=== PATIENT | male | born 1950 | race Caucasian/White ===

== ENCOUNTER 2018-02-23 21:30 | Inpatient (IN) | payer MEDICARE ==
--- NOTE | 2018-02-23 21:57 | C.PDOC ---
History Of Present Illness 67 year old male presents to the ED c/o recurrent dizziness for the past 2 weeks. Patient states "when I get up I feel like everything is moving". Patient has multiple falls with associated vertigo like dizziness. Patient is currently asymptomatic. As per RN, patient drove himself to the ED and RN witness fall when patient was trying to come to the ED. Patient has past similar symptoms in 2015, patient DC from rehab. Patient denies LOC, headache, nausea, vomit, CP, SOB, abdominal pain. RECUR DIZZY X 2 WEEKS. PS "WHEN I GET UP AND MOVE I FEEL LIKE EVERYTHING IS MOVING". +MULT FALLS W ASSOC VERTIGO-LIKE DIZZINESS. CURRENTLY ASYMPT. PER RN, PT DROVE SELF TO ER AND WITNESSED TO FALL WHEN TRYING TO COME TO ER. NO LOC, NV, CP, ABD PAIN, FOCAL WEAKNESS, TAM. PS SIM SX 2014, DC TO REHAB. EXAM MILD DIST NONTOXIC HEENT ATRAUM NEURO NO CEREB DEF; NO FOCAL DEF. INDUCIBLE VERTIGO W MOVEMENT GAIT DEFERRED DUE TO SX EXT OLD BRUISE L KNEE AROM WO DIFF, NO SWELL REMAINDER NEG Time Seen by Provider: 02/23/18 21:50 Chief Complaint (Nursing): Dizziness/Lightheaded History Per: Patient History/Exam Limitations: no limitations Onset/Duration Of Symptoms: Days Current Symptoms Are (Timing): Still Present Activity At Onset Of Symptoms: Walking Associated Symptoms Preceding Syncopal Episode: Vertigo Seizure Or Post-ictal Symptoms: None Possible Causative Factor(s): Vertigo Fall Associated With With Symptoms: Yes Severity: None Recent travel outside of the [place]: No Additional History Per: Patient Past Medical History Reviewed: Historical Data, Nursing Documentation, Vital Signs Vital Signs: Last Vital Signs Temp 97.6 F 02/23/18 21:38 Pulse 101 H 02/23/18 21:38 Resp 20 02/23/18 21:38 BP 158/89 H 02/23/18 21:38 Pulse Ox 98 02/23/18 21:38 - Medical History PMH: COPD, HTN, Hypercholesterolemia, TIA Denies: Chronic Kidney Disease Surgical History: Cholecystectomy - [facility] INJECT/INFUSE NEC (07/31/04) Family History: States: Unknown Family Hx - Social History Hx Alcohol Use: No Hx Substance Use: No - Immunization History Hx Tetanus Toxoid Vaccination: No Hx Influenza Vaccination: No Review Of Systems Constitutional: Negative for: Fever, Chills Eyes: Negative for: Vision Change Cardiovascular: Negative for: Chest Pain Respiratory: Negative for: Shortness of Breath Gastrointestinal: Negative for: Nausea, Vomiting Skin: Negative for: Rash Neurological: Positive for: Dizziness. Negative for: Headache Physical Exam - Physical Exam Appears: Non-toxic, In Acute Distress Skin: Normal Color, Warm, Dry Head: Atraumatic, Normacephalic Eye(s): bilateral: Normal Inspection, PERRL Neck: Normal ROM, No Midline Cervical Tenderness, Supple Chest: Symmetrical Cardiovascular: Rhythm Regular Respiratory: Normal Breath Sounds, No Rales, No Rhonchi, No Wheezing Gastrointestinal/Abdominal: Soft, No Tenderness, No Guarding, No Rebound Extremity: Normal ROM, No Tenderness, Capillary Refill (< 2 seconds), No Swelling, Other (old bruise left knee) Neurological/Psych: Oriented x3, Normal Speech, Normal Cognition, Other (non focal, inducible vertigo with movement ) Gait: Other (deferred due to symptoms) ED Course And Treatment - Laboratory Results Result Diagrams: 02/23/18 22:14 02/23/18 22:14 ECG: Interpreted By Ct ECG Rhythm: Sinus Rhythm Rate From EC O2 Sat by Pulse Oximetry: 98 (ON RA) Pulse Ox Interpretation: Normal - CT Scan/US CT head Other Rad Studies (CT/US): Read By Radiologist, Radiology Report Reviewed CT/US Interpretation: noncontrast brain CT. Indications: Dizzy versus syncope. Technique: Multislice helical acquisition of the brain without intravenous contrast. Multiplanar reformatted images.the total DLP is 1104. Findings: There are age appropriate involutional changes. The ventricles are of normal size shape and configuration. There is no midline shift, vascular territorial edema, mass effect, subdural collections, or recent intracranial hemorrhage. Impression: Unremarkable study. . Electronically signed on Feb 23, 2018 10:40:30 PM EDT by: Davon Lucero M.D., Certified by [facility] Progress - Re-Evaluation Re-evaluation Note: 02/23/18 22:55 D/W DR RAMOS AWARE OF ER FINDINGS WILL ADMIT EXAM UNCH INITIAL VSS - Data Reviewed Data Reviewed: Lab, Diagnostic imaging, EKG, Old records Medical Decision Making Medical Decision Making: Plan: * VBG * CT head * EKG * Labs * CXR * IV fluids * urine culture * UA Disposition Counseled Patient/Family Regarding: Studies Performed, Diagnosis - Disposition Disposition: HOSPITALIZED Disposition Time: 22:55 Condition: SERIOUS Forms: [facility] (Bengali) - POA Present On Arrival: Falls Or Trauma - Clinical Impression Clinical Impression: Vertigo, Near syncope, Difficulty walking, Acute renal insufficiency - Scribe Statement The provider has reviewed the documentation as recorded by the Scribe Ganesh Polk All medical record entries made by the Scribe were at my direction and personally dictated by me. I have reviewed the chart and agree that the record accurately reflects my personal performance of the history, physical exam, medical decision making, and the department course for this patient. I have also personally directed, reviewed, and agree with the discharge instructions and disposition.
[2018-02-23 22:18] LABS: BASO % 0.4 % (0.0-2.0); EOS # 0.1 K/uL (0.0-0.7); EOS % 0.7 % (0.0-4.0); HEMOGLOBIN 11.9 g/dL (12.0-18.0); LYMPH # 2.2 K/uL (1.0-4.3); LYMPH % 26.8 % (20.0-40.0); MEAN CELL VOLUME 86.4 fL (80.0-94.0); MEAN CORPUSCULAR HEMOGLOBIN 29.9 pg (27.0-31.0); MEAN CORPUSCULAR HGB CONC 34.6 g/dL (33.0-37.0); MEAN PLATELET VOLUME 8.2 fL (7.2-11.7); MONO # 0.8 K/uL (0.0-0.8); MONO % 9.3 % (0.0-10.0); NEUT # 5.3 K/uL (1.8-7.0); NEUT % 62.8 % (50.0-75.0); NRBC % 0.1 % (0.0-2.0); RBC 3.99 Mil/uL (4.40-5.90); RED CELL DISTRIBUTION WIDTH 13.4 % (11.5-14.5); WHITE BLOOD COUNT 8.4 K/uL (4.8-10.8)
[2018-02-23 22:38] LABS: ALB/GLOB RATIO 1.4 (1.0-2.1); ALBUMIN 4.5 g/dL (3.5-5.0); ALT/SGPT 27 U/L (21-72); AST/SGOT 22 U/L (17-59); BLOOD UREA NITROGEN 55 mg/dL (9-20); CALCIUM 9.8 mg/dl (8.6-10.4); GFR NON-AFRICAN AMERICAN 24
[2018-02-23] MEDS ORDERED: Sodium Chloride 0.9% 1,000 ML IV ONE (22:42)
[2018-02-23] MEDS ORDERED: Sodium Chloride 0.45% 1,000 ML IV ONE (23:24)
[2018-02-23 23:32] LABS: VENOUS BLOOD GAS BASE EXCESS -1.4 mmol/L (0.0-2.0); VENOUS BLOOD GAS PCO2 28 mmHg (40-60); VENOUS BLOOD GAS PO2 38 mm/Hg (30-55); VENOUS BLOOD PH 7.48 (7.32-7.43)
[2018-02-24] MEDS: Sodium Chloride 0.45% 1,000 ML IV SCH ×2 (00:05→18:21)
[2018-02-24 01:39] VITALS: RESP 20
[2018-02-24 06:29] LABS: SQUAMOUS EPITHIAL 1 /hpf (0-5); URINE BACTERIA RARE (<OCC); URINE BILIRUBIN NEGATIVE (NEGATIVE); URINE CLARITY Clear (Clear); URINE COLOR Yellow (YELLOW); URINE GLUCOSE (UA) 2+ mg/dL (Normal); URINE LEUKOCYTE ESTERASE NEG Leu/uL (Negative); URINE PROTEIN NEGATIVE (NEGATIVE); URINE UROBILINOGEN NORMAL mg/dL (0.2-1.0)
--- NOTE | 2018-02-24 07:03 | CT ---
Date of service: 02/23/2018 PROCEDURE: CT HEAD WITHOUT CONTRAST. HISTORY: Syncope. COMPARISON: 03/23/2015 TECHNIQUE: Axial computed tomography images were obtained through the head/brain without intravenous contrast. Radiation dose: Total exam DLP = 1104 mGy-cm. This CT exam was performed using one or more of the following dose reduction techniques: Automated exposure control, adjustment of the mA and/or kV according to patient size, and/or use of iterative reconstruction technique. FINDINGS: HEMORRHAGE: No intracranial hemorrhage. BRAIN: No mass effect or edema. Scattered focal lucencies in the subcortical and periventricular white matter suggestive for chronic microvascular ischemic change. Bilateral basal ganglia calcifications. VENTRICLES: Unremarkable. No hydrocephalus. CALVARIUM: Unremarkable. PARANASAL SINUSES: Unremarkable as visualized. No significant inflammatory changes. MASTOID AIR CELLS: Unremarkable as visualized. No inflammatory changes. OTHER FINDINGS: Intracranial arterial calcifications. Some soft tissue swelling overlying the occipital cranium, nonspecific. Not significantly changed since the prior study. IMPRESSION: Chronic microvascular ischemic changes. If symptoms persists, consider correlation with MRI. These findings were preliminarily reported at 10:40 p.m. on 02/23/[address] Davon Lucero from [facility].
[2018-02-24 07:12] LABS: URINE BLOOD NEGATIVE (NEGATIVE)
--- NOTE | 2018-02-24 09:30 | RAD ---
Date of service: 02/23/2018 PROCEDURE: CHEST RADIOGRAPH, 1 VIEW HISTORY: Dizziness COMPARISON: 03/23/2015. FINDINGS: LUNGS: The lungs are well inflated and clear. PLEURA: No pneumothorax or pleural fluid seen. CARDIOVASCULAR: Normal. OSSEOUS STRUCTURES: No significant abnormalities. VISUALIZED UPPER ABDOMEN: Normal. OTHER FINDINGS: There is chronic elevation of the right hemidiaphragm IMPRESSION: No acute findings.
--- NOTE | 2018-02-24 11:54 | MRI ---
Date of service: 02/24/2018 PROCEDURE: MRI BRAIN WITHOUT CONTRAST HISTORY: syncopal episode COMPARISON: Noncontrast head CT from 02/23/2018 TECHNIQUE: Multiplanar, multisequence MR images of the brain were obtained without intravenous contrast enhancement. FINDINGS: HEMORRHAGE: None DWI: No evidence of an acute or early subacute infarction. BRAIN PARENCHYMA: There are mild chronic microangiopathic changes. There is no mass, mass effect or abnormal extra-axial fluid collection. There is no territorial infarction. The midline sagittal structures are normal. VENTRICLES: There is moderate age-related global parenchymal volume loss and proportionate enlargement of the ventricles and cortical sulci. CRANIUM: There is normal bone marrow signal pattern. ORBITS: Grossly unremarkable. PARANASAL SINUSES/MASTOIDS: There is mild mucosal thickening in the frontal sinuses, ethmoid air cells and right maxillary sinus, worse in the right maxillary sinus. There is a small right mastoid effusion. The left mastoid air cells are clear. VASCULAR SYSTEM: There are normal signal voids in the larger intracranial arteries. OTHER FINDINGS: None. IMPRESSION: No acute intracranial abnormality. Mild chronic microangiopathic changes and moderate age-related global parenchymal volume loss.
[2018-02-24] MEDS ORDERED: (Novolog) Insulin Aspart, Recombinant 100 u/ml 10 ml vial SC STA (12:32)
[2018-02-24] MEDS ORDERED: Dextrose 50% SYRINGE Inj (50 ml) IV PRN (16:20)
[2018-02-24] MEDS ORDERED: Glucagon Recombinant 1 mg Inj IM PRN (16:20)
[2018-02-24] MEDS: (Novolin R) Insulin Human Regular 100 units/ml vial SC SCH ×2 (17:19→22:05)
--- NOTE | 2018-02-24 17:56 | CP.PCM.HP ---
History of Present Illness - History of Present Illness History of Present Illness: pt keeps falling dizzy dificult ambulation Present on Admission - Present on Admission Any Indicators Present on Admission: Yes History of Uncontrolled Diabetes: Yes Review of Systems - Review of Systems Systems not reviewed;Unavailable: Acuity of Condition - Constitutional Constitutional: Frequent Falls, Malaise - EENT Eyes: Blurred Vision, Sees Flashes Ears: As Per HPI Nose/Mouth/Throat: As Per HPI - Cardiovascular Cardiovascular: Lightheadedness - Respiratory Respiratory: As Per HPI - Gastrointestinal Gastrointestinal: As Per HPI - Genitourinary Genitourinary: As Per HPI - Reproductive: Male Reproductive:Male: As Per HPI - Musculoskeletal Musculoskeletal: Abnormal Gait Additional comments: feels leds donot carry him - Integumentary Integumentary: As Per HPI - Neurological Neurological: Disequilibrium, Frequent Falls, Loss of Vision, Syncope, Vertigo - Psychiatric Psychiatric: As Per HPI - Endocrine Additional Comments: has dm Past Patient History - Infectious Disease Hx of Infectious Diseases: None - Tetanus Immunizations Tetanus Immunization: Unknown - Past Medical History & Family History Past Medical History?: Yes - Past Social History Smoking Status: Former Smoker - CARDIAC Hx Cardiac Disorders: Yes Hx Hypercholesterolemia: Yes Hx Hypertension: Yes - PULMONARY Hx Chronic Obstructive Pulmonary Disease (COPD): Yes - NEUROLOGICAL Hx Neurological Disorder: Yes Hx Transient Ischemic Attacks (TIA): Yes - HEENT Hx HEENT Problems: No - RENAL Hx Chronic Kidney Disease: No - ENDOCRINE/METABOLIC Hx Diabetes Mellitus Type 1: Yes - HEMATOLOGICAL/ONCOLOGICAL Hx Blood Disorders: No - INTEGUMENTARY Hx Dermatological Problems: No - MUSCULOSKELETAL/RHEUMATOLOGICAL Hx Musculoskeletal Disorders: No Hx Falls: Yes - GASTROINTESTINAL Hx Gastrointestinal Disorders: No - GENITOURINARY/GYNECOLOGICAL Hx Genitourinary Disorders: No - PSYCHIATRIC Hx Psychophysiologic Disorder: No Hx Substance Use: No - SURGICAL HISTORY Hx Surgeries: Yes Hx Cholecystectomy: Yes - ANESTHESIA Hx Anesthesia: Yes Hx Anesthesia Reactions: No Hx Malignant Hyperthermia: No Has any member of the family had a problem w/ anesthesia?: No Meds Allergies/Adverse Reactions: Allergies Allergy/AdvReac Type Severity Reaction Status Date / Time No Known Allergies Allergy Verified 03/17/17 12:03 Physical Exam - Constitutional Appears: Non-toxic, In Acute Distress - Head Exam Head Exam: ATRAUMATIC - Eye Exam Eye Exam: Normal appearance Pupil Exam: NORMAL ACCOMODATION - ENT Exam ENT Exam: Mucous Membranes Moist - Neck Exam Neck exam: Positive for: Normal Inspection - Respiratory Exam Respiratory Exam: Clear to Auscultation Bilateral - Cardiovascular Exam Cardiovascular Exam: REGULAR RHYTHM - GI/Abdominal Exam GI & Abdominal Exam: Normal Bowel Sounds - Exam Exam: NORMAL INSPECTION - Extremities Exam Extremities exam: Positive for: normal inspection - Back Exam Back exam: NORMAL INSPECTION - Neurological Exam Neurological exam: Oriented x3 - Psychiatric Exam Psychiatric exam: Normal Mood Results - Vital Signs Recent Vital Signs: Last Vital Signs Temp 98.2 F 02/24/18 15:00 Pulse 80 02/24/18 16:21 Resp 20 02/24/18 15:00 BP 123/74 02/24/18 15:00 Pulse Ox 98 02/24/18 15:00 - Labs Result Diagrams: 02/23/18 22:14 02/23/18 22:14 Labs: Laboratory Results - last 24 hr 02/23/18 02/23/18 02/23/18 22:14 22:14 23:20 WBC 8.4 RBC 3.99 L Hgb 11.9 L Hct 34.5 L MCV 86.4 MCH 29.9 MCHC 34.6 RDW 13.4 Plt Count 331 MPV 8.2 Neut % (Auto) 62.8 Lymph % (Auto) 26.8 Sharp % (Auto) 9.3 Eos % (Auto) 0.7 Baso % (Auto) 0.4 Neut # (Auto) 5.3 Lymph # (Auto) 2.2 Sharp # (Auto) 0.8 Eos # (Auto) 0.1 Baso # (Auto) 0.0 pO2 38 VBG pH 7.48 H VBG pCO2 28 L VBG HCO3 23.3 VBG Total CO2 21.8 L VBG O2 Sat (Calc) 73.8 H VBG Base Excess -1.4 L VBG Potassium 3.7 Glucose 224 H Lactate 2.0 Sodium 136 134.0 Potassium 4.0 Chloride 97 L 99.0 Carbon Dioxide 20 L Anion Gap 23 H BUN 55 H Creatinine 2.7 H Est GFR ( Amer) 28 Est GFR (Non-Af Amer) 24 POC Glucose (mg/dL) Random Glucose 217 H Calcium 9.8 Total Bilirubin 0.6 AST 22 ALT 27 Alkaline Phosphatase 101 Troponin I < 0.0120 Total Protein 7.8 Albumin 4.5 Globulin 3.3 Albumin/Globulin Ratio 1.4 Venous Blood Potassium 3.7 Urine Color Urine Clarity Urine pH Ur Specific [place] Urine Protein Urine Glucose (UA) Urine Ketones Urine Blood Urine Nitrate Urine Bilirubin Urine Urobilinogen Ur Leukocyte Esterase Urine WBC (Auto) Urine RBC (Auto) Ur Squamous Epith Cells Urine Bacteria 02/24/18 02/24/18 02/24/18 06:06 06:14 11:07 WBC RBC Hgb Hct MCV MCH MCHC RDW Plt Count MPV Neut % (Auto) Lymph % (Auto) Sharp % (Auto) Eos % (Auto) Baso % (Auto) Neut # (Auto) Lymph # (Auto) Sharp # (Auto) Eos # (Auto) Baso # (Auto) pO2 VBG pH VBG pCO2 VBG HCO3 VBG Total CO2 VBG O2 Sat (Calc) VBG Base Excess VBG Potassium Glucose Lactate Sodium Potassium Chloride Carbon Dioxide Anion Gap BUN Creatinine Est GFR ( Amer) Est GFR (Non-Af Amer) POC Glucose (mg/dL) 172 H 285 H Random Glucose Calcium Total Bilirubin AST ALT Alkaline Phosphatase Troponin I Total Protein Albumin Globulin Albumin/Globulin Ratio Venous Blood Potassium Urine Color Yellow Urine Clarity Clear Urine pH 5.0 Ur Specific [place] 1.013 Urine Protein Negative Urine Glucose (UA) 2+ H Urine Ketones Negative Urine Blood Negative Urine Nitrate Negative Urine Bilirubin Negative Urine Urobilinogen Normal Ur Leukocyte Esterase Neg Urine WBC (Auto) 4 Urine RBC (Auto) 1 Ur Squamous Epith Cells 1 Urine Bacteria Rare 02/24/18 02/24/18 11:20 16:25 WBC RBC Hgb Hct MCV MCH MCHC RDW Plt Count MPV Neut % (Auto) Lymph % (Auto) Sharp % (Auto) Eos % (Auto) Baso % (Auto) Neut # (Auto) Lymph # (Auto) Sharp # (Auto) Eos # (Auto) Baso # (Auto) pO2 VBG pH VBG pCO2 VBG HCO3 VBG Total CO2 VBG O2 Sat (Calc) VBG Base Excess VBG Potassium Glucose Lactate Sodium Potassium Chloride Carbon Dioxide Anion Gap BUN Creatinine Est GFR ( Amer) Est GFR (Non-Af Amer) POC Glucose (mg/dL) 302 H 246 H Random Glucose Calcium Total Bilirubin AST ALT Alkaline Phosphatase Troponin I Total Protein Albumin Globulin Albumin/Globulin Ratio Venous Blood Potassium Urine Color Urine Clarity Urine pH Ur Specific [place] Urine Protein Urine Glucose (UA) Urine Ketones Urine Blood Urine Nitrate Urine Bilirubin Urine Urobilinogen Ur Leukocyte Esterase Urine WBC (Auto) Urine RBC (Auto) Ur Squamous Epith Cells Urine Bacteria Assessment & Plan - Assessment and Plan (Free Text) Assessment: recuret falls diequlibrium dm poor vision neare syncope progressive renal failiur Plan: as per orders - Date & Time Date: 02/24/18 Time: 18:01
[2018-02-25 07:44] LABS: CALCIUM 8.9 mg/dl (8.6-10.4)
[2018-02-25] MEDS: (Novolin R) Insulin Human Regular 100 units/ml vial SC SCH ×4 (08:11→22:09)
[2018-02-25] MEDS: Sodium Chloride 0.45% 1,000 ML IV SCH (09:10)
--- NOTE | 2018-02-25 11:32 | CP.PCM.PN ---
Subjective - Date & Time of Evaluation Date of Evaluation: 02/25/18 Time of Evaluation: 11:30 - Subjective Subjective: recurent falls dizziness Objective - Vital Signs/Intake and Output Vital Signs (last 24 hours): Temp Pulse Resp BP Pulse Ox 97.6 F 83 20 117/71 95 02/25/18 07:15 02/25/18 07:15 02/25/18 07:15 02/25/18 07:15 02/25/18 07:15 Intake and Output: 02/25/18 02/25/18 06:59 18:59 Intake Total 1280 Balance 1280 - Medications Medications: Current Medications Acetaminophen (Tylenol 325mg Tab) 650 mg PO Q6 PRN PRN Reason: Pain, moderate (4-7) Aspirin (Aspirin Chewable) 81 mg PO DAILY [facility] Last Admin: 02/25/18 09:05 Dose: 81 mg Dextrose (Dextrose 50% Inj) 0 ml IV STAT PRN; Protocol PRN Reason: Hypoglycemia Protocol Dextrose (Glutose 15) 0 gm PO ONCE PRN; Protocol PRN Reason: Hypoglycemia Protocol Glipizide (Glucotrol) 10 mg PO ACBD [facility] Last Admin: 02/25/18 08:08 Dose: 10 mg Glucagon (Glucagen Diagnostic Kit) 0 mg IM STAT PRN; Protocol PRN Reason: Hypoglycemia Protocol Heparin Sodium (Porcine) (Heparin) 5,000 units SC Q12 [facility] Last Admin: 02/25/18 09:05 Dose: 5,000 units Sodium Chloride (Sodium Chloride 0.45%) 1,000 mls @ 60 mls/hr IV .[id number] [facility] Last Admin: 02/25/18 09:10 Dose: Not Given Dextrose (Dextrose 5% In Water 1000 Ml) 1,000 mls @ 0 mls/hr IV .Q0M PRN; Protocol PRN Reason: Hypoglycemia Protocol Influenza Virus Vaccine (Fluzone Quad [id number]) 60 mcg IM .ONCE ONE Stop: 02/25/18 14:01 Insulin Human Regular (Novolin R) 0 unit SC ACHS [facility]; Protocol Last Admin: 02/25/18 11:23 Dose: 4 units Lisinopril (Zestril) 10 mg PO DAILY [facility] Last Admin: 02/25/18 09:05 Dose: 10 mg Pneumococcal Polyvalent Vaccine (Pneumovax 23 Vaccine) 0.5 ml IM .ONCE ONE Stop: 02/25/18 14:01 Tamsulosin HCl (Flomax) 0.4 mg PO DAILY [facility] Last Admin: 02/25/18 09:05 Dose: 0.4 mg - Labs Labs: 02/23/18 22:14 02/25/18 07:00 - Constitutional Appears: Non-toxic - Head Exam Head Exam: NORMAL INSPECTION - Eye Exam Eye Exam: Normal appearance Pupil Exam: NORMAL ACCOMODATION - ENT Exam ENT Exam: Mucous Membranes Moist - Neck Exam Neck Exam: Full ROM - Respiratory Exam Respiratory Exam: NORMAL BREATHING PATTERN - Cardiovascular Exam Cardiovascular Exam: REGULAR RHYTHM - GI/Abdominal Exam GI & Abdominal Exam: Normal Bowel Sounds - Exam Exam: NORMAL INSPECTION - Extremities Exam Extremities Exam: Normal Inspection - Back Exam Back Exam: NORMAL INSPECTION - Neurological Exam Neurological Exam: Abnormal Gait, Oriented x3 - Psychiatric Exam Psychiatric exam: Normal Mood - Skin Skin Exam: Normal Color Assessment and Plan - Assessment and Plan (Free Text) Assessment: recurent falls dizziness Plan: cont as per orders
[2018-02-25] MEDS ORDERED: Pneumococcal 23-Valent Vaccine IM ONE (14:00)
[2018-02-25] MEDS ORDERED: Influenza Vaccine 60 MCG/0.5 ML SYR (3 yr & up) IM ONE (14:00)
[2018-02-25 14:30] LABS: BASO % 0.4 % (0.0-2.0); EOS # 0.1 K/uL (0.0-0.7); EOS % 0.9 % (0.0-4.0); HEMOGLOBIN 11.7 g/dL (12.0-18.0); LYMPH # 1.6 K/uL (1.0-4.3); LYMPH % 22.9 % (20.0-40.0); MEAN CELL VOLUME 87.1 fL (80.0-94.0); MEAN CORPUSCULAR HEMOGLOBIN 30.5 pg (27.0-31.0); MEAN PLATELET VOLUME 8.3 fL (7.2-11.7); MONO # 0.7 K/uL (0.0-0.8); MONO % 9.5 % (0.0-10.0); NEUT # 4.6 K/uL (1.8-7.0); NEUT % 66.3 % (50.0-75.0); RBC 3.82 Mil/uL (4.40-5.90); RED CELL DISTRIBUTION WIDTH 13.2 % (11.5-14.5); WHITE BLOOD COUNT 6.9 K/uL (4.8-10.8)
--- NOTE | 2018-02-25 14:46 | CARD ---
APPROVED REPORT Date of service: 02/23/2018 EKG Measurement Heart [id number] <Conclusion> Normal sinus rhythm Normal ECG
--- NOTE | 2018-02-25 14:51 | CP.PCM.CON ---
History of Present Illness - History of Present Illness History of Present Illness: Nephrology Consultation Note: Assessment: Stable Acute Kidney Injury (N17.9) likely due to pre-renal state, hemodynamic/low BP. r/o obstruction ? 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 Hypertension control with meds as ordered. Maintain hemodynamics stable. Avoid hypotension. Patient not on ACEI/ARB due to recent JACQUELINE. hold lisinopril Monitor Input/Output, daily weights and renal function with basic metabolic panel change IVF to NS @ 100 ml/hr check orthostatics echo and chest CT results pending Check urine spot protein/creatinine, albumin/creatinine ratio, Na/cr ratio for FeNa, Check uric acid, renal and bladder sonogram Check HIV/Hep B and Hep C serology Anemia work up with TSAT/Ferritin/Vitamin B12/folate, serum protein electrophoresis with immunofixation, serum free light chain assay ([place]/Lambda) Check for 25-OH vitamin D, iPTH, phosphorus level. Dose meds/antibiotics for reduced GFR. Avoid fleets enema/magnesium based laxati ves. Avoid nephrotoxins/NSAIDs/ iodinated contrast (unless needed emergently) Glycemic control Further work up/management as per primary team Thanks for allowing me to participate in care of your patient. Will follow patient with you. Please call if any Qs. had d/w team Dr Flex Miranda Office: [phone] Chief Complaint; dizziness fall Reason for consult: Acute Kidney Injury HPI: Pt is a 67 M with hx of diabetes Mellitus ( years), hypertension (years) ov erweight, BPH presented with complaints of episodes of dizziness and cvertigo with fall which are more progressive. pt reports hx of for it for last 3 months. more often now. Denies OTC/herbal meds. takes occasional NSAIDs No recent iodinated contrast exposure. Noted obvious episodes of low BP. denies urine complaints. not aware about kidney disease in past reports frequent BM but soft as well ROS: Cardiovascular: No chest pain. Pulmonary: No shortness of breath Gastrointestinal: denies abdominal pain No nausea. No vomiting. Genitourinary: No pain while urinating. Denies blood in urine. All other negative except as mentioned in HPI except dizziness/vertigo Physical Examination: General Appearance: Comfortable, in no acute respiratory distress, co-operative . overweight Vitals reviewed and noted as below Head; Atraumatic, normocephalic ENT: no ulcers no thrush. Tongue is midline. Oropharynx: no rash or ulcers. EYES: Pupils are equal, round and reactive to light accommodation. Eye muscles and extraocular movement intact. Sclera is anicteric. Neck; supple no lymphadenopathy, no thyromegaly or bruit Lungs: Normal respiratory rate/effort. Breath sounds bilateral equal and clear Heart: Normal rate. s1s2 normal. No rub or gallop. Extremities: no edema. No varicose veins Neurological: Patient is alert, awake and oriented to person, place and time. No focal deficit. Strength bilateral appropriate and equal Skin: Warm and dry. Normal turgor. No rash. Palpitation: Normal elasticity for age Abdomen: Abdomen is soft. Bowel sounds +. There is no abdominal tenderness, no guarding/rigidity no organomegaly Psych: limited insight and normal affect/mood MSK: no joint tenderness or swelling. Digits and nails normal, no deformity : kidney or bladder not palpable Labs/imaging reviewed. Past medical history, past surgical history, family history, social history, allergy reviewed and noted as below Family hx: no hx of CKD. Rest non-contributory UA no blood or protein Past Patient History - Infectious Disease Hx of Infectious Diseases: None - Tetanus Immunizations Tetanus Immunization: Unknown - Past Medical History & Family History Past Medical History?: Yes - Past Social History Smoking Status: Former Smoker - CARDIAC Hx Cardiac Disorders: Yes Hx Hypercholesterolemia: Yes Hx Hypertension: Yes - PULMONARY Hx Chronic Obstructive Pulmonary Disease (COPD): Yes - NEUROLOGICAL Hx Neurological Disorder: Yes Hx Transient Ischemic Attacks (TIA): Yes - HEENT Hx HEENT Problems: No - RENAL Hx Chronic Kidney Disease: No - ENDOCRINE/METABOLIC Hx Diabetes Mellitus Type 1: Yes - HEMATOLOGICAL/ONCOLOGICAL Hx Blood Disorders: No - INTEGUMENTARY Hx Dermatological Problems: No - MUSCULOSKELETAL/RHEUMATOLOGICAL Hx Musculoskeletal Disorders: No Hx Falls: Yes - GASTROINTESTINAL Hx Gastrointestinal Disorders: No - GENITOURINARY/GYNECOLOGICAL Hx Genitourinary Disorders: No - PSYCHIATRIC Hx Psychophysiologic Disorder: No Hx Substance Use: No - SURGICAL HISTORY Hx Surgeries: Yes Hx Cholecystectomy: Yes - ANESTHESIA Hx Anesthesia: Yes Hx Anesthesia Reactions: No Hx Malignant Hyperthermia: No Has any member of the family had a problem w/ anesthesia?: No Meds Allergies/Adverse Reactions: Allergies Allergy/AdvReac Type Severity Reaction Status Date / Time No Known Allergies Allergy Verified 03/17/17 12:03 - Medications Medications: Current Medications Acetaminophen (Tylenol 325mg Tab) 650 mg PO Q6 PRN PRN Reason: Pain, moderate (4-7) Aspirin (Aspirin Chewable) 81 mg PO DAILY [facility] Last Admin: 02/25/18 09:05 Dose: 81 mg Dextrose (Dextrose 50% Inj) 0 ml IV STAT PRN; Protocol PRN Reason: Hypoglycemia Protocol Dextrose (Glutose 15) 0 gm PO ONCE PRN; Protocol PRN Reason: Hypoglycemia Protocol Glipizide (Glucotrol) 10 mg PO ACBD [facility] Last Admin: 02/25/18 08:08 Dose: 10 mg Glucagon (Glucagen Diagnostic Kit) 0 mg IM STAT PRN; Protocol PRN Reason: Hypoglycemia Protocol Heparin Sodium (Porcine) (Heparin) 5,000 units SC Q12 [facility] Last Admin: 02/25/18 09:05 Dose: 5,000 units Dextrose (Dextrose 5% In Water 1000 Ml) 1,000 mls @ 0 mls/hr IV .Q0M PRN; Protocol PRN Reason: Hypoglycemia Protocol Sodium Chloride (Sodium Chloride 0.9%) 1,000 mls @ 100 mls/hr IV .Q10H [facility] Insulin Human Regular (Novolin R) 0 unit SC ACHS DERRICK; Protocol Last Admin: 02/25/18 11:23 Dose: 4 units Tamsulosin HCl (Flomax) 0.4 mg PO DAILY [facility] Last Admin: 02/25/18 09:05 Dose: 0.4 mg Results - Vital Signs Recent Vital Signs: Last Vital Signs Temp 97.6 F 02/25/18 07:15 Pulse 83 02/25/18 07:45 Resp 20 02/25/18 07:15 BP 117/71 02/25/18 07:15 Pulse Ox 95 02/25/18 07:15 - Labs Result Diagrams: 02/25/18 14:20 02/25/18 07:00 Labs: Laboratory Results - last 24 hr 02/24/18 02/24/18 02/25/18 16:25 20:46 06:10 WBC RBC Hgb Hct MCV MCH MCHC RDW Plt Count MPV Neut % (Auto) Lymph % (Auto) [place] % (Auto) Eos % (Auto) Baso % (Auto) Neut # (Auto) Lymph # (Auto) [place] # (Auto) Eos # (Auto) Baso # (Auto) Sodium Potassium Chloride Carbon Dioxide Anion Gap BUN Creatinine Est GFR ( Amer) Est GFR (Non-Af Amer) POC Glucose (mg/dL) 246 H 205 H 314 H Random Glucose Hemoglobin A1c Calcium Triglycerides Cholesterol LDL Cholesterol Direct HDL Cholesterol 02/25/18 02/25/18 02/25/18 07:00 07:00 11:01 WBC RBC Hgb Hct MCV MCH MCHC RDW Plt Count MPV Neut % (Auto) Lymph % (Auto) [place] % (Auto) Eos % (Auto) Baso % (Auto) Neut # (Auto) Lymph # (Auto) [place] # (Auto) Eos # (Auto) Baso # (Auto) Sodium 134 Potassium 3.6 Chloride 98 Carbon Dioxide 22 Anion Gap 18 BUN 53 H Creatinine 2.6 H Est GFR ( Amer) 30 Est GFR (Non-Af Amer) 25 POC Glucose (mg/dL) 293 H Random Glucose 295 H Hemoglobin A1c 9.3 H Calcium 8.9 Triglycerides 386 H D Cholesterol 162 LDL Cholesterol Direct 55 HDL Cholesterol 40 02/25/18 14:20 WBC 6.9 RBC 3.82 L Hgb 11.7 L Hct 33.3 L MCV 87.1 MCH 30.5 MCHC 35.0 RDW 13.2 Plt Count 301 MPV 8.3 Neut % (Auto) 66.3 Lymph % (Auto) 22.9 [place] % (Auto) 9.5 Eos % (Auto) 0.9 Baso % (Auto) 0.4 Neut # (Auto) 4.6 Lymph # (Auto) 1.6 [place] # (Auto) 0.7 Eos # (Auto) 0.1 Baso # (Auto) 0.0 Sodium Potassium Chloride Carbon Dioxide Anion Gap BUN Creatinine Est GFR ( Amer) Est GFR (Non-Af Amer) POC Glucose (mg/dL) Random Glucose Hemoglobin A1c Calcium Triglycerides Cholesterol LDL Cholesterol Direct HDL Cholesterol
[2018-02-25 14:52] LABS: IRON 43 ug/dL (49-181)
[2018-02-25 15:16] LABS: % IRON SATURATION 16 (20-55); TOTAL IRON BINDING CAPACITY 268 ug/dL (250-450)
[2018-02-25 15:26] LABS: HEPATITIS B SURFACE AG Negative (NEGATIVE)
[2018-02-25 15:31] LABS: HEPATITIS B CORE AB NEGATIVE (NEGATIVE)
[2018-02-25 15:36] LABS: HIV 1&2 ANTIBODY NEGATIVE (NEGATIVE)
[2018-02-25 15:43] LABS: HEPATITIS C ANTIBODY NEGATIVE (NEGATIVE)
[2018-02-25 16:00] LABS: FOLATE 8.5 ng/mL
[2018-02-25] MEDS: Sodium Chloride 0.9% 1,000 ML IV SCH (16:01)
--- NOTE | 2018-02-25 17:25 | CT ---
Date of service: 02/25/2018 PROCEDURE: CT Chest without contrast HISTORY: Aortic root dilatation COMPARISON: 03/24/2015 CT thorax and abdomen TECHNIQUE: Contiguous axial images were obtained through the chest without intravenous contrast enhancement. Sagittal and coronal reconstructions were performed. Radiation dose (DLP): 814.87 mGy-cm. This CT exam was performed using one or more of the following dose reduction techniques: Automated exposure control, adjustment of the mA and/or kV according to patient size, and/or use of iterative reconstruction technique. FINDINGS: LUNGS: Stable 4 x 6 mm pulmonary nodule periphery of the lingula. No new pulmonary nodules, masses or infiltrates. MEDIASTINUM: Ascending aorta 4.1 x 4.3 cm. Maximum diameter of descending aorta 3.4 x 3.5 cm. Aortic calcifications identified, unchanged compared to the prior study. With respect to the thoracic and upper abdominal aorta, no significant interval change compared to the prior study. Pulmonary vascular congestion. No cardiac abnormalities nor is there evidence of pericardial effusion.. All main pulmonary artery unremarkable. No vascular congestion. No lymphadenopathy. PLEURA: No pleural fluid. No pneumothorax. BONES: No fracture. No destructive lesion. UPPER ABDOMEN: Grossly unremarkable. OTHER FINDINGS: None. IMPRESSION: No significant or acute findings to account for/ related to the clinical presentation. No significant interval change compared to the prior examination(s).
[2018-02-25] MEDS: Ferrous Sulfate 300 mg/5 mL Liq UD PO SCH (18:00)
--- NOTE | 2018-02-25 18:30 | CARD ---
APPROVED REPORT Date of service: 02/25/2018 EXAM: Two-dimensional and M-mode echocardiogram with Doppler and color Doppler. Other Information Quality : GoodRhythm : INDICATION Syncope RISK FACTORS Hypertension Hyperlipidemia Diabetes 2D DIMENSIONS IVSd1.5 (0.7-1.1cm)LVDd2.8 (3.9-5.9cm) LVOT Diameter2.2 (1.8-2.4cm)PWd1.2 (0.7-1.1cm) LA [id number] (18-58mL)LVDs1.8 (2.5-4.0cm) FS (%) 35.9 %LVEF (%)67.2 (>50%) LVEF (Phillip's)70.31 % M-Mode DIMENSIONS Left Atrium (MM)3.82 (2.5-4.0cm)IVSd1.20 (0.7-1.1cm) Aortic Root3.49 (2.2-3.7cm)LVDd3.76 (4.0-5.6cm) Aortic Cusp Exc.1.62 (1.5-2.0cm)PWd1.13 (0.7-1.1cm) FS (%) 37 %LVDs2.36 (2.0-3.8cm) LVEF (%)68 (>50%) Mitral Valve MV E Wmloalkk40.3cm/sMV A Olefkxvs383.2cm/sE/A ratio0.7 TDI Lateral E' Peak V6.16cm/sMedial E' Peak V5.19cm/sE/Lateral E'14.0 E/Medial E'16.6 Tricuspid Valve TR Peak [id number]/sTR Peak Gr.[id number] LEFT VENTRICLE The left ventricle is normal size. There is mild concentric left ventricular hypertrophy. Left ventricle systolic function is normal. The Ejection Fraction is 65-70%. There is normal LV segmental wall motion. Transmitral Doppler flow pattern is Grade I-abnormal relaxation pattern. There is no ventricular septal defect visualized. RIGHT VENTRICLE The right ventricle is normal size. The right ventricular systolic function is normal. ATRIA The left atrium is moderately dilated. The right atrium size is normal. AORTIC VALVE The aortic valve is mildly to moderately sclerotic. The aortic valve is tri-cuspid. No aortic regurgitation is present. There is no aortic valvular stenosis. MITRAL VALVE The mitral valve is normal in structure. There is no evidence of mitral valve prolapse. There is no mitral valve regurgitation noted. TRICUSPID VALVE The tricuspid valve is normal in structure. There is trace tricuspid regurgitation. Right ventricular systolic pressure is estimated at 30-40 mmHg. There is mild pulmonary hypertension. PULMONIC VALVE The pulmonic valve is not well visualized. There is trace pulmonic valvular regurgitation. GREAT VESSELS The aortic root is normal in size. The ascending aorta is Mildly dilated. 3.9 cm The IVC is normal in size and collapses >50% with inspiration. PERICARDIAL EFFUSION There is no pericardial effusion. <Conclusion> There is mild concentric left ventricular hypertrophy. Left ventricle systolic function is normal. The Ejection Fraction is 65-70%. Transmitral Doppler flow pattern is Grade I-abnormal relaxation pattern. There is mild pulmonary hypertension.
--- NOTE | 2018-02-25 18:59 | CP.PCM.CON ---
History of Present Illness - History of Present Illness History of Present Illness: - Clinical Impression Clinical Impression: Vertigo, Near syncope, Difficulty walking, Acute renal insufficiency HPI: Pt is a 67 M with hx of diabetes Mellitus ( years), hypertension (years) overweight, BPH presented with complaints of episodes of dizziness and vertigo with fall which are more progressive. pt reports hx of for it for last 3 months. more often now. Patient states "when I get up I feel like everything is moving". Patient has multiple falls with associated vertigo like dizziness. Patient is currently asymptomatic. As per RN, patient drove himself to the ED and RN witness fall when patient was trying to come to the ED. Patient has past similar symptoms in 2015, patient DC from rehab. Patient denies LOC, headache, nausea, vomit, CP, SOB, abdominal pain. RECUR DIZZY X 2 WEEKS. PS "WHEN I GET UP AND MOVE I FEEL LIKE EVERYTHING IS MOVING". +MULT FALLS W ASSOC VERTIGO-LIKE DIZZINESS. CURRENTLY ASYMPT. PER RN, PT DROVE SELF TO ER AND WITNESSED TO FALL WHEN TRYING TO COME TO ER. NO LOC, NV, CP, ABD PAIN, FOCAL WEAKNESS, TAM. PS SIM SX 2014, DC TO REHAB. - Medical History PMH: COPD, HTN, Hypercholesterolemia, TIA Denies: Chronic Kidney Disease Surgical History: Cholecystectomy Denies OTC/herbal meds. takes occasional NSAIDs No recent iodinated contrast exposure. Noted obvious episodes of low BP. denies urine complaints. not aware about kidney disease in past reports frequent BM but soft as well Past Patient History - Infectious Disease Hx of Infectious Diseases: None - Tetanus Immunizations Tetanus Immunization: Unknown - Past Medical History & Family History Past Medical History?: Yes - Past Social History Smoking Status: Former Smoker - CARDIAC Hx Cardiac Disorders: Yes Hx Hypercholesterolemia: Yes Hx Hypertension: Yes - PULMONARY Hx Chronic Obstructive Pulmonary Disease (COPD): Yes - NEUROLOGICAL Hx Neurological Disorder: Yes Hx Transient Ischemic Attacks (TIA): Yes - HEENT Hx HEENT Problems: No - RENAL Hx Chronic Kidney Disease: No - ENDOCRINE/METABOLIC Hx Diabetes Mellitus Type 1: Yes - HEMATOLOGICAL/ONCOLOGICAL Hx Blood Disorders: No - INTEGUMENTARY Hx Dermatological Problems: No - MUSCULOSKELETAL/RHEUMATOLOGICAL Hx Musculoskeletal Disorders: No Hx Falls: Yes - GASTROINTESTINAL Hx Gastrointestinal Disorders: No - GENITOURINARY/GYNECOLOGICAL Hx Genitourinary Disorders: No - PSYCHIATRIC Hx Psychophysiologic Disorder: No Hx Substance Use: No - SURGICAL HISTORY Hx Surgeries: Yes Hx Cholecystectomy: Yes - ANESTHESIA Hx Anesthesia: Yes Hx Anesthesia Reactions: No Hx Malignant Hyperthermia: No Has any member of the family had a problem w/ anesthesia?: No Meds Allergies/Adverse Reactions: Allergies Allergy/AdvReac Type Severity Reaction Status Date / Time No Known Allergies Allergy Verified 03/17/17 12:03 - Medications Medications: Current Medications Acetaminophen (Tylenol 325mg Tab) 650 mg PO Q6 PRN PRN Reason: Pain, moderate (4-7) Aspirin (Aspirin Chewable) 81 mg PO DAILY [facility] Last Admin: 02/25/18 09:05 Dose: 81 mg Dextrose (Dextrose 50% Inj) 0 ml IV STAT PRN; Protocol PRN Reason: Hypoglycemia Protocol Dextrose (Glutose 15) 0 gm PO ONCE PRN; Protocol PRN Reason: Hypoglycemia Protocol Glipizide (Glucotrol) 10 mg PO ACBD [facility] Last Admin: 02/25/18 08:08 Dose: 10 mg Glucagon (Glucagen Diagnostic Kit) 0 mg IM STAT PRN; Protocol PRN Reason: Hypoglycemia Protocol Heparin Sodium (Porcine) (Heparin) 5,000 units SC Q12 [facility] Last Admin: 02/25/18 09:05 Dose: 5,000 units Dextrose (Dextrose 5% In Water 1000 Ml) 1,000 mls @ 0 mls/hr IV .Q0M PRN; Protocol PRN Reason: Hypoglycemia Protocol Sodium Chloride (Sodium Chloride 0.9%) 1,000 mls @ 100 mls/hr IV .Q10H [facility] Insulin Human Regular (Novolin R) 0 unit SC ACHS [facility]; Protocol Last Admin: 02/25/18 11:23 Dose: 4 units Tamsulosin HCl (Flomax) 0.4 mg PO DAILY [facility] Last Admin: 02/25/18 09:05 Dose: 0.4 mg ROS: Cardiovascular: No chest pain. Pulmonary: No shortness of breath Gastrointestinal: denies abdominal pain No nausea. No vomiting. Genitourinary: No pain while urinating. Denies blood in urine. All other negative except as mentioned in HPI except dizziness/vertigo Acute Kidney Injury (N17.9) likely due to pre-renal state, hemodynamic/low BP. r/o obstruction ? Underlying CKD with Diabetic chronic Kidney Disease (E11.22) and H ypertensive Chronic Kidney Disease (I12.9) Anemia (D64.9) overweight, BPH dizziness/vertigo with fall No acute need for renal replacement therapy at this time. Hypertension control with meds as ordered. Maintain hemodynamics stable. Avoid hypotension. Patient not on ACEI/ARB due to recent JACQUELINE. hold lisinopril Monitor Input/Output, daily weights and renal function with basic metabolic panel Dose meds/antibiotics for reduced GFR. Avoid fleets enema/magnesium based lax atives. Avoid nephrotoxins/NSAIDs/ iodinated contrast (unless needed emergently) Glycemic control Results - Vital Signs Recent Vital Signs: Last Vital Signs Temp 97.6 F 02/25/18 07:15 Pulse 83 02/25/18 07:45 Resp 20 02/25/18 07:15 BP 117/71 02/25/18 07:15 Pulse Ox 95 02/25/18 07:15 - CT Scan/US CT head Other Rad Studies (CT/US): Read By Radiologist, Radiology Report Reviewed CT/US Interpretation: noncontrast brain CT. Indications: Dizzy versus syncope. Technique: Multislice helical acquisition of the brain without intravenous contrast. Multiplanar reformatted images.the total DLP is 1104. Findings: There are age appropriate involutional changes. The ventricles are of normal size shape and configuration. There is no midline shift, vascular territorial edema, mass effect, subdural collections, or recent intracranial hemorrhage. Impression: Unremarkable study. . - Clinical Impression Clinical Impression: Vertigo, Near syncope, Difficulty walking, Acute renal insufficiency recurrent falls, disequilibrium, Diabetes Mellitus, poor vision near syncope progressive renal failure Past Patient History - Infectious Disease Hx of Infectious Diseases: None - Tetanus Immunizations Tetanus Immunization: Unknown - Past Medical History & Family History Past Medical History?: Yes - Past Social History Smoking Status: Former Smoker - CARDIAC Hx Cardiac Disorders: Yes Hx Hypercholesterolemia: Yes Hx Hypertension: Yes - PULMONARY Hx Chronic Obstructive Pulmonary Disease (COPD): Yes - NEUROLOGICAL Hx Neurological Disorder: Yes Hx Transient Ischemic Attacks (TIA): Yes - HEENT Hx HEENT Problems: No - RENAL Hx Chronic Kidney Disease: No - ENDOCRINE/METABOLIC Hx Diabetes Mellitus Type 1: Yes - HEMATOLOGICAL/ONCOLOGICAL Hx Blood Disorders: No - INTEGUMENTARY Hx Dermatological Problems: No - MUSCULOSKELETAL/RHEUMATOLOGICAL Hx Musculoskeletal Disorders: No Hx Falls: Yes - GASTROINTESTINAL Hx Gastrointestinal Disorders: No - GENITOURINARY/GYNECOLOGICAL Hx Genitourinary Disorders: No - PSYCHIATRIC Hx Psychophysiologic Disorder: No Hx Substance Use: No - SURGICAL HISTORY Hx Surgeries: Yes Hx Cholecystectomy: Yes - ANESTHESIA Hx Anesthesia: Yes Hx Anesthesia Reactions: No Hx Malignant Hyperthermia: No Has any member of the family had a problem w/ anesthesia?: No Meds Allergies/Adverse Reactions: Allergies Allergy/AdvReac Type Severity Reaction Status Date / Time No Known Allergies Allergy Verified 03/17/17 12:03 - Medications Medications: Current Medications Acetaminophen (Tylenol 325mg Tab) 650 mg PO Q6 PRN PRN Reason: Pain, moderate (4-7) Aspirin (Aspirin Chewable) 81 mg PO DAILY [facility] Last Admin: 02/25/18 09:05 Dose: 81 mg Dextrose (Dextrose 50% Inj) 0 ml IV STAT PRN; Protocol PRN Reason: Hypoglycemia Protocol Dextrose (Glutose 15) 0 gm PO ONCE PRN; Protocol PRN Reason: Hypoglycemia Protocol Ferrous Sulfate (Feosol Liq) 300 mg PO DAILY [facility] Last Admin: 02/25/18 18:00 Dose: 300 mg Glipizide (Glucotrol) 10 mg PO ACBD [facility] Last Admin: 02/25/18 18:00 Dose: 10 mg Glucagon (Glucagen Diagnostic Kit) 0 mg IM STAT PRN; Protocol PRN Reason: Hypoglycemia Protocol Heparin Sodium (Porcine) (Heparin) 5,000 units SC Q12 [facility] Last Admin: 02/25/18 09:05 Dose: 5,000 units Dextrose (Dextrose 5% In Water 1000 Ml) 1,000 mls @ 0 mls/hr IV .Q0M PRN; Protocol PRN Reason: Hypoglycemia Protocol Sodium Chloride (Sodium Chloride 0.9%) 1,000 mls @ 100 mls/hr IV .Q10H [facility] Last Admin: 02/25/18 16:01 Dose: 100 mls/hr Insulin Human Regular (Novolin R) 0 unit SC ACHS [facility]; Protocol Last Admin: 02/25/18 17:35 Dose: Not Given Tamsulosin HCl (Flomax) 0.4 mg PO DAILY [facility] Last Admin: 02/25/18 09:05 Dose: 0.4 mg Physical Exam - Neurological Exam Additional comments: 67 years old male has h/o frequent fallings, syncopal spells, dizzy spells, sense of vertigo, pre renal failure as diagnosed by Nephrology, DM since the age of 44 Years, HTN, high lipid profile mainly high Triglycerides, low vitamin B12. He has high Blood sugar, and is receiving IV Fluids to correct his pre renal failure. Negative MRI Brain, negative CT Brain, negative CXR, negative CT chest without contrast. His spells of syncope, dizziness, vertigo and general weakness have stopped since admitted. His Renal function is monitored. P/E: Mental status: Awake, alert, oriented X 3, fluent coherent speech, normal memory X 3, appropriate behavior, normal mathematic ability. Cranial Nerves II to XII: No deficits Motor: normal tone, power and muscle bulk DTR 0/4 Toes are down going by Plantar stimulation. Sensory: reduced sensation peripherally in a glove and stoke pattern, in both UEs and LEs. Diabetic peripheral neuropathy looks a major cause of it. Cerebellar: Normal FNT, HST Tandem walking not tested. Stature and Gait: Not tested. Results - Vital Signs Recent Vital Signs: Last Vital Signs Temp 98.3 F 02/25/18 15:25 Pulse 87 02/25/18 16:00 Resp 20 02/25/18 15:25 BP 106/69 02/25/18 15:25 Pulse Ox 97 02/25/18 15:25 - Labs Result Diagrams: 02/25/18 14:20 02/25/18 07:00 Labs: Laboratory Results - last 24 hr 02/24/18 02/25/18 02/25/18 20:46 06:10 07:00 WBC RBC Hgb Hct MCV MCH MCHC RDW Plt Count MPV Neut % (Auto) Lymph % (Auto) [place] % (Auto) Eos % (Auto) Baso % (Auto) Neut # (Auto) Lymph # (Auto) [place] # (Auto) Eos # (Auto) Baso # (Auto) D-Dimer, Quantitative Sodium 134 Potassium 3.6 Chloride 98 Carbon Dioxide 22 Anion Gap 18 BUN 53 H Creatinine 2.6 H Est GFR ( Amer) 30 Est GFR (Non-Af Amer) 25 POC Glucose (mg/dL) 205 H 314 H Random Glucose 295 H Hemoglobin A1c Calcium 8.9 Iron TIBC % Saturation Ferritin Troponin I Triglycerides 386 H D Cholesterol 162 LDL Cholesterol Direct 55 HDL Cholesterol 40 Vitamin B12 Folate Hep Bs Antigen Hep Bs Antibody Hep B Core IgM Ab Hepatitis C Antibody HIV 1&2 Antibody Screen 02/25/18 02/25/18 02/25/18 07:00 11:01 14:20 WBC RBC Hgb Hct MCV MCH MCHC RDW Plt Count MPV Neut % (Auto) Lymph % (Auto) [place] % (Auto) Eos % (Auto) Baso % (Auto) Neut # (Auto) Lymph # (Auto) [place] # (Auto) Eos # (Auto) Baso # (Auto) D-Dimer, Quantitative Sodium Potassium Chloride Carbon Dioxide Anion Gap BUN Creatinine Est GFR ( Amer) Est GFR (Non-Af Amer) POC Glucose (mg/dL) 293 H Random Glucose Hemoglobin A1c 9.3 H Calcium Iron 43 L TIBC 268 % Saturation 16 L Ferritin Troponin I Triglycerides Cholesterol LDL Cholesterol Direct HDL Cholesterol Vitamin B12 Folate Hep Bs Antigen Hep Bs Antibody Hep B Core IgM Ab Hepatitis C Antibody HIV 1&2 Antibody Screen Negative 02/25/18 02/25/18 02/25/18 14:20 14:20 14:20 WBC 6.9 RBC 3.82 L Hgb 11.7 L Hct 33.3 L MCV 87.1 MCH 30.5 MCHC 35.0 RDW 13.2 Plt Count 301 MPV 8.3 Neut % (Auto) 66.3 Lymph % (Auto) 22.9 [place] % (Auto) 9.5 Eos % (Auto) 0.9 Baso % (Auto) 0.4 Neut # (Auto) 4.6 Lymph # (Auto) 1.6 [place] # (Auto) 0.7 Eos # (Auto) 0.1 Baso # (Auto) 0.0 D-Dimer, Quantitative Sodium Potassium Chloride Carbon Dioxide Anion Gap BUN Creatinine Est GFR ( Amer) Est GFR (Non-Af Amer) POC Glucose (mg/dL) Random Glucose Hemoglobin A1c Calcium Iron TIBC % Saturation Ferritin 634.0 Troponin I Triglycerides Cholesterol LDL Cholesterol Direct HDL Cholesterol Vitamin B12 234 L Folate 8.5 Hep Bs Antigen Negative Hep Bs Antibody Positive Hep B Core IgM Ab Negative Hepatitis C Antibody Negative HIV 1&2 Antibody Screen 02/25/18 02/25/18 14:26 14:26 WBC RBC Hgb Hct MCV MCH MCHC RDW Plt Count MPV Neut % (Auto) Lymph % (Auto) [place] % (Auto) Eos % (Auto) Baso % (Auto) Neut # (Auto) Lymph # (Auto) [place] # (Auto) Eos # (Auto) Baso # (Auto) D-Dimer, Quantitative 233 Sodium Potassium Chloride Carbon Dioxide Anion Gap BUN Creatinine Est GFR ( Amer) Est GFR (Non-Af Amer) POC Glucose (mg/dL) Random Glucose Hemoglobin A1c Calcium Iron TIBC % Saturation Ferritin Troponin I < 0.0120 Triglycerides Cholesterol LDL Cholesterol Direct HDL Cholesterol Vitamin B12 Folate Hep Bs Antigen Hep Bs Antibody Hep B Core IgM Ab Hepatitis C Antibody HIV 1&2 Antibody Screen Assessment & Plan (1) Acute renal insufficiency Status: Acute (2) Difficulty walking Status: Acute (3) Near syncope Status: Acute (4) Vertigo Status: Acute (5) Diabetes mellitus, insulin dependent (IDDM), uncontrolled Status: Chronic (6) Obesity (BMI 30.0-34.9) Status: Acute (7) Recurrent falls Assessment and Plan: R/O seizures. Status: Acute (8) Syncope Status: Acute (9) Seizures Assessment and Plan: Seizures must be ruled out due to Syncopal spells and near [place] spells. Will get an EEG. Status: Acute (10) CVA (cerebral vascular accident) Assessment and Plan: Negative MRI Brain has ruled it out. Status: Acute (11) Cerebral vascular insufficiency Assessment and Plan: Get MRA Brain To R/O Cerebral vascular insufficiency Status: Acute
[2018-02-25 22:26] LABS: CREATININE, RANDOM URINE 77.2 mg/dL
--- NOTE | 2018-02-26 00:25 | CON ---
DATE: 02/25/2018 REASON FOR CONSULTATION: Recurrent near syncope and recurrent falls. HISTORY OF PRESENT ILLNESS: The patient is a 67-year-old [place] male, who has a history of hypertension and diabetes mellitus, and is unaware of any prior cardiac history. He presented because of recurrent dizziness and falls. The patient describes his first episode, while he was waiting for the bus he noticed that his legs are weak, feeling dizzy, collapsed to the floor on his knees and sustained knee abrasions from hitting the side walk. The patient was assisted by someone, who took him in his car and dropped him to his house. The patient states that after he arrived the house and almost undressed to go for shower, he kept collapsing because of dizziness and leg weakness and a friend brought him to the emergency room. The patient also stated that at the entrance of the emergency room, he had another fall episode accompanied with dizziness. The patient described that he may have lost consciousness very briefly, but regained his consciousness immediately after he fell to the ground. The patient does not recall experiencing palpitation and denies any chest pain or shortness of breath. MEDICATIONS: The patient's home medications include Motrin, Atarax, Lexapro, glipizide, Flomax, fenofibrate, gabapentin, losartan, hydrochlorothiazide, and omeprazole. Current hospital medications are aspirin 81 mg once a day, Flomax 0.4 mg once a day, glipizide 10 mg twice a day, and heparin 5000 units subcutaneously every 12 hours, PAST MEDICAL HISTORY: The patient is unaware of any history of stroke or heart attack. SOCIAL HISTORY: The patient is ; however, his is in [place] and currently is staying all by himself. REVIEW OF SYSTEMS: No fever or chills, no nausea or vomiting. PHYSICAL EXAMINATION GENERAL: The patient is an elderly male, who does not appear to be in acute distress. VITAL SIGNS: Blood pressure 117/71, heart rate 83, temperature 97.6, respirations 20. HEENT: Normocephalic. CHEST: Clear. HEART: S1 and S2, regular. ABDOMEN: Soft. EXTREMITIES: No edema, no calf tenderness, minor knee bruising. LABORATORY DATA: SMA-7: Sodium 134, potassium 3.6, chloride 98, CO2 of 22, glucose 195, BUN 63. creatinine 2.6. Triglycerides are elevated at 386, rest of the lipid profile is within normal limits. One set of troponin is negative. Hemoglobin and hematocrit are 11.9 and 34.5. White count and platelet count are within normal limits. Head CT scan without contrast, chronic microvascular ischemic changes. Brain MRI without contrast, no acute intracranial findings, mild chronic microangiopathic changes, and moderate age related global parenchymal volume loss. Carotid Doppler was performed, the report is still pending. Chest x-ray was unremarkable. EKG revealed normal sinus rhythm at the rate of 98. Preliminary echo report revealed normal ejection fraction and mild pulmonary hypertension. The aortic root appeared mildly dilated and the aortic valve is significantly sclerotic. ASSESSMENT: 1. Recurrent near syncopal episodes. 2. Hypertension. 3. Diabetes mellitus. 4. Chronic renal insufficiency. 5. Hypertriglyceridemia. RECOMMENDATIONS: Continue current aspirin 81 mg once a day, subcutaneous heparin 5000 units every 12 hours, mg twice a day. Obtain chest CT angio without IV contrast to evaluate the aortic root size. Obtain venous Doppler of lower extremities as well as serum D-dimer. Repeat 12-lead EKG and one more set of troponin and continue telemetry monitoring. Bharat Caro MD
[2018-02-26] MEDS: Sodium Chloride 0.9% 1,000 ML IV SCH ×2 (02:01→12:38)
[2018-02-26 08:15] LABS: URIC ACID 7.7 mg/dL (3.5-8.5)
[2018-02-26 08:25] LABS: CALCIUM 8.9 mg/dl (8.6-10.4)
[2018-02-26] MEDS: (Novolin R) Insulin Human Regular 100 units/ml vial SC SCH ×4 (08:25→22:06)
[2018-02-26] MEDS: Ferrous Sulfate 300 mg/5 mL Liq UD PO SCH (09:18)
--- NOTE | 2018-02-26 12:26 | US ---
Date of service: 2018-02-25 22:35:41 PROCEDURE: Ultrasound of the Kidneys/urinary bladder HISTORY: JACQUELINE COMPARISON: None available. TECHNIQUE: Sonogram of the kidneys/urinary bladder. FINDINGS: RIGHT KIDNEY: Measures: 12.9 x 6.5 x 6.9 cm. No obstructing calculus or hydronephrosis. LEFT KIDNEY: Measures: 13.2 x 6.4 x 6.3 cm. No obstructing calculus or hydronephrosis. OTHER FINDINGS: Prevoid urinary bladder measures approximately 11.1 x 6.5 x 1.0 cm, calculated volume 377.3 mL. Postvoid urinary bladder measures 11.7 x 6.2 x 8.6 cm, calculated volume 325.3 mL. Bilateral ureteral jets are not identified. The prostate gland measures approximately 4.1 x 4.2 x 4.0 cm. IMPRESSION: No obstructing calculus or hydronephrosis identified. Prevoid urinary bladder volume 377.3 mL. Postvoid urinary bladder volume 325.3 mL. Bilateral ureteral jets were not identified. Enlarged prostate gland. Recommend correlation with PSA. Preliminary impression was provided by [employer]
[2018-02-26] MEDS: Insulin Detemir 100 units/ml Vial (Levemir) SC SCH (12:32)
[2018-02-26 14:56] LABS: RAPID PLASMA REAGIN NONREACTIVE (NONREACTIVE)
--- NOTE | 2018-02-26 15:24 | CP.PCM.PN ---
Subjective - Date & Time of Evaluation Date of Evaluation: 02/26/18 Time of Evaluation: 15:24 - Subjective Subjective: Nephrology Consultation Note: Assessment: Stable Acute Kidney Injury (N17.9) likely due to pre-renal state, hemodynamic/low BP. r /o obstruction ? 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 cr better Hypertension control with meds as ordered.continue to hold lisinopril lytes ok Monitor Input/Output continue IVF NS @ 100 ml/hr bladder USG shows elevated prostate and bladder urine retention, recommend urology evaluation Physical Examination: General Appearance: Comfortable, in no acute respiratory distress, co-operative . overweight Vitals reviewed and noted as below Head; Atraumatic, normocephalic ENT: no ulcers no thrush. Tongue is midline. Oropharynx: no rash or ulcers. EYES: Eye muscles and extraocular movement intact. Sclera is anicteric. Neck; supple no thyromegaly or bruit Lungs: Normal respiratory rate/effort. Breath sounds bilateral equal and clear Heart: Normal rate. s1s2 normal. No rub or gallop. Extremities: no edema. No varicose veins Neurological: Patient is alert, awake and oriented to person, place and time. No focal deficit. Strength bilateral appropriate and equal Skin: Warm and dry. Normal turgor. No rash. Abdomen: Abdomen is soft. Bowel sounds +. There is no abdominal tenderness, no guarding/rigidity no organomegaly Psych: limited insight and normal affect/mood . Objective - Vital Signs/Intake and Output Vital Signs (last 24 hours): Temp Pulse Resp BP Pulse Ox 98.0 F 79 20 111/52 L 97 02/26/18 07:15 02/26/18 07:15 02/26/18 07:15 02/26/18 07:15 02/26/18 07:15 Intake and Output: 02/26/18 02/26/18 06:59 18:59 Intake Total 1920 Balance 1920 - Medications Medications: Current Medications Acetaminophen (Tylenol 325mg Tab) 650 mg PO Q6 PRN PRN Reason: Pain, moderate (4-7) Aspirin (Aspirin Chewable) 81 mg PO DAILY [facility] Last Admin: 02/26/18 09:18 Dose: 81 mg Dextrose (Dextrose 50% Inj) 0 ml IV STAT PRN; Protocol PRN Reason: Hypoglycemia Protocol Dextrose (Glutose 15) 0 gm PO ONCE PRN; Protocol PRN Reason: Hypoglycemia Protocol Ferrous Sulfate (Feosol Liq) 300 mg PO DAILY [facility] Last Admin: 02/26/18 09:18 Dose: 300 mg Glipizide (Glucotrol) 10 mg PO ACBD [facility] Last Admin: 02/26/18 08:25 Dose: 10 mg Glucagon (Glucagen Diagnostic Kit) 0 mg IM STAT PRN; Protocol PRN Reason: Hypoglycemia Protocol Heparin Sodium (Porcine) (Heparin) 5,000 units SC Q12 [facility] Last Admin: 02/26/18 09:21 Dose: 5,000 units Dextrose (Dextrose 5% In Water 1000 Ml) 1,000 mls @ 0 mls/hr IV .Q0M PRN; Protocol PRN Reason: Hypoglycemia Protocol Sodium Chloride (Sodium Chloride 0.9%) 1,000 mls @ 100 mls/hr IV .Q10H [facility] Last Admin: 02/26/18 12:38 Dose: 100 mls/hr Insulin Detemir (Levemir) 5 unit SC ACB [facility] Last Admin: 02/26/18 12:32 Dose: 5 u Insulin Human Regular (Novolin R) 0 unit SC ACHS [facility]; Protocol Last Admin: 02/26/18 12:32 Dose: 3 units Tamsulosin HCl (Flomax) 0.4 mg PO DAILY [facility] Last Admin: 02/26/18 09:18 Dose: 0.4 mg - Labs Labs: 02/25/18 14:20 02/26/18 06:19
--- NOTE | 2018-02-26 21:36 | PN ---
DATE: 02/26/2018 FOLLOWUP SUBJECTIVE: The patient denies dizziness while in bed and had no falls while on telemetry monitoring. No reported arrhythmia. PHYSICAL EXAMINATION: VITAL SIGNS: Blood pressure 111/52, heart rate 79, temperature 98, respirations 20. HEENT: Normocephalic. CHEST: Clear. HEART: S1 and S2 are regular. EXTREMITIES: No edema. LABORATORY DATA: Today's SMA-7: Sodium 137, potassium 3.8, chloride 102, CO2 of 22, glucose 244, BUN 43, creatinine 1.9. Two sets of troponins are negative. Rheumatoid factor is negative. MIAH panel is pending. Chest CT scan reported no acute findings. The ascending aorta measures 4.1 x 4.3 cm which is mild dilatation. Brain MRI: No acute findings. Mild chronic microangiopathic changes and moderate age-related global parenchymal volume loss. Bladder ultrasound: No obstructive calculus or hydronephrosis. Enlarged prostate. Recommend correlation with PSA. Official echocardiography study revealed ejection fraction in range of 65% to 70% with mild concentric LVH and mild pulmonary hypertension. ASSESSMENT: 1. Recurrent dizziness and recurrent falls. 2. Hypertension and diabetes mellitus. 3. Rule out vertebrobasilar insufficiency. 4. Chronic insufficiency. 5. Hypertriglyceridemia. RECOMMENDATIONS: Continue aspirin 81 mg once a day, Flomax 0.4 mg once a day, glipizide 10 mg twice a day, Levemir 5 units subcutaneously daily. Consider neck and head MRA. I did review the repeat EKG which is not significantly different from the admitting one, and arrhythmia does not seem to be the reason for the patient's current symptoms at least as far as monitoring shows since admission. Bharat Caro MD
--- NOTE | 2018-02-26 23:26 | CP.PCM.PN ---
Subjective - Date & Time of Evaluation Date of Evaluation: 02/26/18 Time of Evaluation: 22:10 - Subjective Subjective: Doing better, no syncopal spells since admitted. He has normal cardiac enzymes, high glucose levels, low Vitamin B12 and Vitamin D levels. A replacement is given for Vitamin D and Calcium Carbonate, Vitamin B 12. Mild pre renal failure that is improving by IV Fluid correction. BUN 4 and Creatinine 1.9. He has CBC Diff showing mild anemia, low Iron receiving Iron replacement. He is awake alert and oriented He is concerned about his frequently high Glucose. Objective - Vital Signs/Intake and Output Vital Signs (last 24 hours): Temp Pulse Resp BP Pulse Ox 97.8 F 86 20 126/74 96 02/26/18 16:00 02/26/18 16:00 02/26/18 16:00 02/26/18 16:00 02/26/18 16:00 Intake and Output: 02/26/18 02/27/18 18:59 06:59 Intake Total 1080 1120 Balance 1080 1120 - Medications Medications: Current Medications Acetaminophen (Tylenol 325mg Tab) 650 mg PO Q6 PRN PRN Reason: Pain, moderate (4-7) Aspirin (Aspirin Chewable) 81 mg PO DAILY [facility] Last Admin: 02/26/18 09:18 Dose: 81 mg Calcium Carbonate (Oscal) 500 mg PO DAILY [facility] Cyanocobalamin (Vitamin B12 1000 Mcg/Ml Inj) 1,000 mcg IM QAM [facility] Stop: 03/03/18 10:00 Dextrose (Dextrose 50% Inj) 0 ml IV STAT PRN; Protocol PRN Reason: Hypoglycemia Protocol Dextrose (Glutose 15) 0 gm PO ONCE PRN; Protocol PRN Reason: Hypoglycemia Protocol Ergocalciferol (Drisdol 50,000 Intl Units Cap) 1 cap PO Q7D [facility] Ferrous Sulfate (Feosol Liq) 300 mg PO DAILY [facility] Last Admin: 02/26/18 09:18 Dose: 300 mg Folic Acid (Folic Acid) 1 mg PO DAILY [facility] Glipizide (Glucotrol) 10 mg PO ACBD [facility] Last Admin: 02/26/18 18:09 Dose: 10 mg Glucagon (Glucagen Diagnostic Kit) 0 mg IM STAT PRN; Protocol PRN Reason: Hypoglycemia Protocol Heparin Sodium (Porcine) (Heparin) 5,000 units SC Q12 [facility] Last Admin: 02/26/18 22:06 Dose: 5,000 units Dextrose (Dextrose 5% In Water 1000 Ml) 1,000 mls @ 0 mls/hr IV .Q0M PRN; Protocol PRN Reason: Hypoglycemia Protocol Sodium Chloride (Sodium Chloride 0.9%) 1,000 mls @ 100 mls/hr IV .Q10H [facility] Last Admin: 02/26/18 12:38 Dose: 100 mls/hr Insulin Detemir (Levemir) 5 unit SC ACB [facility] Last Admin: 02/26/18 12:32 Dose: 5 u Insulin Human Regular (Novolin R) 0 unit SC ACHS [facility]; Protocol Last Admin: 02/26/18 22:06 Dose: Not Given Tamsulosin HCl (Flomax) 0.4 mg PO DAILY [facility] Last Admin: 02/26/18 09:18 Dose: 0.4 mg - Labs Labs: 02/25/18 14:20 02/26/18 06:19 Assessment and Plan (1) Acute renal insufficiency Status: Acute (2) Difficulty walking Status: Acute (3) Near syncope Status: Acute (4) Vertigo Status: Acute (5) Diabetes mellitus, insulin dependent (IDDM), uncontrolled Status: Chronic (6) Obesity (BMI 30.0-34.9) Status: Acute (7) Recurrent falls Status: Acute (8) Syncope Assessment & Plan: EEG is pending Status: Acute (9) Seizures Assessment & Plan: EEG is pending. Status: Acute (10) CVA (cerebral vascular accident) Assessment & Plan: Negative MRI Brain Status: Acute (11) Cerebral vascular insufficiency Assessment & Plan: MRA Brain needs to be performed as in Patient or Out Patient. Status: Acute
[2018-02-27] MEDS: Sodium Chloride 0.9% 1,000 ML IV SCH ×3 (02:00→11:42)
[2018-02-27] MEDS: Insulin Detemir 100 units/ml Vial (Levemir) SC SCH (07:58)
[2018-02-27] MEDS: (Novolin R) Insulin Human Regular 100 units/ml vial SC SCH ×4 (07:59→21:36)
[2018-02-27] MEDS: Ferrous Sulfate 300 mg/5 mL Liq UD PO SCH (09:35)
[2018-02-27] MEDS ORDERED: Ergocalciferol 50,000 Intl Units Cap PO SCH (10:00)
--- NOTE | 2018-02-27 17:46 | CP.PCM.PN ---
Subjective - Date & Time of Evaluation Date of Evaluation: 02/27/18 Time of Evaluation: 17:42 - Subjective Subjective: Doing the same, no syncopal spells, more stable, able to walk to the bathroom. Glucose is high 200's and 300's. Mild High Blood pressure reading twice today. He will have EEG in AM. He has Proteinuria and a urinary protein electrophoresis test is obtained and the results are pending. Urinary bladder Ultrasonography: No obstructing calculus or hydronephrosis identified. Prevoid urinary bladder volume 377.3 mL. Postvoid urinary bladder volume 325.3 mL. Bilateral ureteral jets were not identified. Enlarged prostate gland. Recommend correlation with PSA. Preliminary impression was provided by [facility]. Carotid Dopplers: Bilateral mild stenosis. Objective - Vital Signs/Intake and Output Vital Signs (last 24 hours): Temp Pulse Resp BP Pulse Ox 97.8 F 85 20 156/88 H 97 02/27/18 15:54 02/27/18 16:09 02/27/18 15:54 02/27/18 15:54 02/27/18 15:54 Intake and Output: 02/27/18 02/27/18 06:59 18:59 Intake Total 1920 1080 Balance 1920 1080 - Medications Medications: Current Medications Acetaminophen (Tylenol 325mg Tab) 650 mg PO Q6 PRN PRN Reason: Pain, moderate (4-7) Aspirin (Aspirin Chewable) 81 mg PO DAILY [facility] Last Admin: 02/27/18 09:35 Dose: 81 mg Calcium Carbonate (Oscal) 500 mg PO DAILY [facility] Last Admin: 02/27/18 09:35 Dose: 500 mg Cyanocobalamin (Vitamin B12 1000 Mcg/Ml Inj) 1,000 mcg IM QAM [facility] Stop: 03/03/18 10:00 Last Admin: 02/27/18 09:43 Dose: 1,000 mcg Dextrose (Dextrose 50% Inj) 0 ml IV STAT PRN; Protocol PRN Reason: Hypoglycemia Protocol Dextrose (Glutose 15) 0 gm PO ONCE PRN; Protocol PRN Reason: Hypoglycemia Protocol Ergocalciferol (Drisdol 50,000 Intl Units Cap) 1 cap PO Q7D [facility] Last Admin: 02/27/18 09:35 Dose: 1 cap Ferrous Sulfate (Feosol Liq) 300 mg PO DAILY [facility] Last Admin: 02/27/18 09:35 Dose: 300 mg Folic Acid (Folic Acid) 1 mg PO DAILY [facility] Last Admin: 02/27/18 09:35 Dose: 1 mg Glipizide (Glucotrol) 10 mg PO ACBD [facility] Last Admin: 02/27/18 17:33 Dose: 10 mg Glucagon (Glucagen Diagnostic Kit) 0 mg IM STAT PRN; Protocol PRN Reason: Hypoglycemia Protocol Heparin Sodium (Porcine) (Heparin) 5,000 units SC Q12 [facility] Last Admin: 02/27/18 09:40 Dose: 5,000 units Sodium Chloride (Sodium Chloride 0.9%) 1,000 mls @ 100 mls/hr IV .Q10H [facility] Last Admin: 02/27/18 11:42 Dose: 100 mls/hr Insulin Detemir (Levemir) 5 unit SC ACB [facility] Last Admin: 02/27/18 07:58 Dose: 5 u Insulin Human Regular (Novolin R) 0 unit SC ACHS [facility]; Protocol Last Admin: 02/27/18 17:33 Dose: 3 units Tamsulosin HCl (Flomax) 0.4 mg PO DAILY [facility] Last Admin: 02/27/18 09:35 Dose: 0.4 mg - Labs Labs: 02/25/18 14:20 02/26/18 06:19 Assessment and Plan (1) Acute renal insufficiency Status: Acute (2) Difficulty walking Status: Acute (3) Near syncope Status: Acute (4) Vertigo Status: Acute (5) Diabetes mellitus, insulin dependent (IDDM), uncontrolled Status: Chronic (6) Obesity (BMI 30.0-34.9) Status: Acute (7) Recurrent falls Status: Acute (8) Syncope Status: Acute (9) Seizures Status: Acute (10) CVA (cerebral vascular accident) Status: Acute (11) Cerebral vascular insufficiency Status: Acute
--- NOTE | 2018-02-28 00:33 | PN ---
DATE: 02/27/2018 SUBJECTIVE: The patient does report dizziness. Today, there were no reported atrial or ventricular arrhythmia. PHYSICAL EXAMINATION: VITAL SIGNS: Blood pressure /82, heart rate 82, temperature 98.2, respirations 20. HEENT: Normocephalic. CHEST: Clear. HEART: S1 and S2, regular. EXTREMITIES: No edema. LABORATORY DATA: Today's blood sugars are 259, 212, and 329. ASSESSMENT: 1. Recurrent dizziness and falls. 2. Hypertension. 3. Improved renal insufficiency. 4. Diabetes mellitus. RECOMMENDATIONS: I did review neurology followup and recommendation for brain MRA to be performed as an outpatient. Continue aspirin 81 mg once a day, Feosol 300 mg daily, glipizide 10 mg twice a day, vitamin B12 1 mg IM daily. I was trying the case at this point. Bharat Caro MD
[2018-02-28] MEDS: Sodium Chloride 0.9% 1,000 ML IV SCH ×2 (02:26→02:27)
[2018-02-28] MEDS: (Novolin R) Insulin Human Regular 100 units/ml vial SC SCH ×4 (08:11→21:30)
[2018-02-28] MEDS: Insulin Detemir 100 units/ml Vial (Levemir) SC SCH (08:12)
--- NOTE | 2018-02-28 09:45 | CP.PCM.CON ---
History of Present Illness - History of Present Illness History of Present Illness: We are called to evaluate for syncope: Per history: "RECUR DIZZY X 2 WEEKS. PS "WHEN I GET UP AND MOVE I FEEL LIKE EVERYTHING IS MOVING". +MULT FALLS W ASSOC VERTIGO-LIKE DIZZINESS. CURRENTLY ASYMPT. PER RN, PT DROVE SELF TO ER AND WITNESSED TO FALL WHEN TRYING TO COME TO ER. NO LOC, NV, CP, ABD PAIN, FOCAL WEAKNESS, TAM. PS SIM SX 2014, PMHX: HTN chronic stable ; DM chronic labile ; No MO ? TIA in past; CKD/JACQUELINE Currently NO CP or SOB, c/o vertiginous sx's. No TAM, N/V, c/o generalized weakness and neuropathy feet. No Ulcers or cyanosis. Review of Systems - Review of Systems All systems: reviewed and no additional remarkable complaints except Past Patient History - Infectious Disease Hx of Infectious Diseases: None - Tetanus Immunizations Tetanus Immunization: Unknown - Past Medical History & Family History Past Medical History?: Yes - Past Social History Smoking Status: Former Smoker - CARDIAC Hx Cardiac Disorders: Yes Hx Hypercholesterolemia: Yes Hx Hypertension: Yes - PULMONARY Hx Chronic Obstructive Pulmonary Disease (COPD): Yes - NEUROLOGICAL Hx Neurological Disorder: Yes Hx Transient Ischemic Attacks (TIA): Yes - HEENT Hx HEENT Problems: No - RENAL Hx Chronic Kidney Disease: No - ENDOCRINE/METABOLIC Hx Diabetes Mellitus Type 1: Yes - HEMATOLOGICAL/ONCOLOGICAL Hx Blood Disorders: No - INTEGUMENTARY Hx Dermatological Problems: No - MUSCULOSKELETAL/RHEUMATOLOGICAL Hx Musculoskeletal Disorders: No Hx Falls: Yes - GASTROINTESTINAL Hx Gastrointestinal Disorders: No - GENITOURINARY/GYNECOLOGICAL Hx Genitourinary Disorders: No - PSYCHIATRIC Hx Psychophysiologic Disorder: No Hx Substance Use: No - SURGICAL HISTORY Hx Surgeries: Yes Hx Cholecystectomy: Yes - ANESTHESIA Hx Anesthesia: Yes Hx Anesthesia Reactions: No Hx Malignant Hyperthermia: No Has any member of the family had a problem w/ anesthesia?: No Meds Allergies/Adverse Reactions: Allergies Allergy/AdvReac Type Severity Reaction Status Date / Time No Known Allergies Allergy Verified 03/17/17 12:03 - Medications Medications: Current Medications Acetaminophen (Tylenol 325mg Tab) 650 mg PO Q6 PRN PRN Reason: Pain, moderate (4-7) Aspirin (Aspirin Chewable) 81 mg PO DAILY [facility] Last Admin: 02/27/18 09:35 Dose: 81 mg Calcium Carbonate (Oscal) 500 mg PO DAILY [facility] Last Admin: 02/27/18 09:35 Dose: 500 mg Cyanocobalamin (Vitamin B12 1000 Mcg/Ml Inj) 1,000 mcg IM QAM [facility] Stop: 03/03/18 10:00 Last Admin: 02/27/18 09:43 Dose: 1,000 mcg Dextrose (Dextrose 50% Inj) 0 ml IV STAT PRN; Protocol PRN Reason: Hypoglycemia Protocol Dextrose (Glutose 15) 0 gm PO ONCE PRN; Protocol PRN Reason: Hypoglycemia Protocol Ergocalciferol (Drisdol 50,000 Intl Units Cap) 1 cap PO Q7D [facility] Last Admin: 02/27/18 09:35 Dose: 1 cap Ferrous Sulfate (Feosol Liq) 300 mg PO DAILY [facility] Last Admin: 02/27/18 09:35 Dose: 300 mg Folic Acid (Folic Acid) 1 mg PO DAILY [facility] Last Admin: 02/27/18 09:35 Dose: 1 mg Glipizide (Glucotrol) 10 mg PO ACBD [facility] Last Admin: 02/28/18 08:12 Dose: 10 mg Glucagon (Glucagen Diagnostic Kit) 0 mg IM STAT PRN; Protocol PRN Reason: Hypoglycemia Protocol Sodium Chloride (Sodium Chloride 0.9%) 1,000 mls @ 100 mls/hr IV .Q10H [facility] Last Admin: 02/28/18 02:27 Dose: Not Given Insulin Detemir (Levemir) 5 unit SC ACB [facility] Last Admin: 02/28/18 08:12 Dose: 5 u Insulin Human Regular (Novolin R) 0 unit SC ACHS [facility]; Protocol Last Admin: 02/28/18 08:11 Dose: 2 units Tamsulosin HCl (Flomax) 0.4 mg PO DAILY [facility] Last Admin: 02/27/18 09:35 Dose: 0.4 mg Physical Exam - Constitutional Appears: No Acute Distress - Head Exam Head Exam: ATRAUMATIC, NORMAL INSPECTION, NORMOCEPHALIC - Eye Exam Eye Exam: EOMI, Normal appearance - ENT Exam ENT Exam: Mucous Membranes Moist, Normal Oropharynx - Neck Exam Neck exam: Positive for: Full Rom, Normal Inspection. Negative for: Tenderness - Respiratory Exam Respiratory Exam: Clear to Auscultation Bilateral, NORMAL BREATHING PATTERN. absent: Rhonchi, Wheezes - Cardiovascular Exam Cardiovascular Exam: REGULAR RHYTHM, +S1, +S2. absent: +S4, Systolic Murmur - GI/Abdominal Exam GI & Abdominal Exam: Normal Bowel Sounds, Soft. absent: Pulsatile Mass, Tenderness - Extremities Exam Extremities exam: Positive for: normal inspection, pedal pulses present. Negative for: calf tenderness, pedal edema, tenderness - Neurological Exam Neurological exam: Alert, Oriented x3 - Psychiatric Exam Psychiatric exam: Normal Affect, Normal Mood - Skin Skin Exam: Normal Color, Warm Results - Vital Signs Recent Vital Signs: Last Vital Signs Temp 97.6 F 02/28/18 07:00 Pulse 90 02/28/18 07:00 Resp 20 02/28/18 07:00 BP 125/76 02/28/18 07:00 Pulse Ox 97 02/28/18 07:00 - Labs Result Diagrams: 02/25/18 14:20 02/26/18 06:19 Labs: Laboratory Results - last 24 hr 02/25/18 02/25/18 02/27/18 21:29 21:29 11:55 POC Glucose (mg/dL) 329 H Ur Random Creatinine 94 U Random Total Protein 238 H Urine Total Volume 3.8 Microalb/Creat Ratio 40 H 02/27/18 02/27/18 17:08 20:40 POC Glucose (mg/dL) 235 H 288 H Ur Random Creatinine U Random Total Protein Urine Total Volume Microalb/Creat Ratio - EKG Data EKG Interpreted by: Myself Assessment & Plan - Assessment and Plan (Free Text) Assessment: Diagnostics and DAta directly viewed by me EKG: NSR, no acute changes CT chest: mild aortic root enlargement: stable CT head: microvascular changes MRI: Microvascular changes Carotid doppler: mild heterogenous plaque, no hemodynamically sig stenosis B/L carotids and antegrade flow Labs Creat 1.9 CKD 3 Sugars labile Trop neg x3 IMPRESSION/PLAN DIZZINESS: Patient sx's are not c/w any cardiac arrythmia, angina or CHF. EKG is normal and TELE shows no arrythmias. Vertigo seems best plausible Dx. -> cont neuro w/u, hydration -> Order: echo to eval cardiac structure and function DM: labile, cont optimization of Rx CKD/JACQUELINE: Hydration HTN: chronic stable: BP normal range without RX
[2018-02-28] MEDS: Ferrous Sulfate 300 mg/5 mL Liq UD PO SCH ×3 (10:29→18:53)
--- NOTE | 2018-02-28 12:20 | CP.PCM.PN ---
Subjective - Date & Time of Evaluation Date of Evaluation: 02/28/18 Time of Evaluation: 12:17 - Subjective Subjective: Nephrology Consultation Note: Assessment: Stable Acute Kidney Injury (N17.9) likely due to pre-renal state, hemodynamic/low BP. r /o obstruction Underlying CKD ? stage with Diabetic chronic Kidney Disease (E11.22) and Hypertensive Chronic Kidney Disease (I12.9) with 40 mg albuminuria and 276 mg proteinuria Anemia (D64.9) overweight, BPH with increased PVR 327 mL dizziness/vertigo with fall Vit D insufficiency, Vit B12 level def Plan No acute need for renal replacement therapy at this time. Hypertension control with meds as ordered. Maintain hemodynamics stable. Avoid hypotension. Patient not on ACEI/ARB due to recent JACQUELINE. held lisinopril for now, likely will resume at d/c Monitor Input/Output, daily weights and renal function with basic metabolic panel d/c IVF agree with flomax. consider urology eval started iron, MVI, Vit D and B12 supplements cardiology and Neuro following Check urine spot protein/creatinine, albumin/creatinine ratio, Na/cr ratio for FeNa, Check uric acid, renal and bladder sonogram Check HIV/Hep B and Hep C serology Anemia work up with TSAT/Ferritin/Vitamin B12/folate, serum protein electro phoresis with immunofixation, serum free light chain assay (Ruby/Lambda) Check for 25-OH vitamin D, iPTH, phosphorus level. Dose meds/antibiotics for reduced GFR. Avoid fleets enema/magnesium based laxatives. Avoid nephrotoxins/NSAIDs/ iodinated contrast (unless needed emergently) Glycemic control Further work up/management as per primary team Thanks for allowing me to participate in care of your patient. Will follow patient with you. Please call if any Qs. had d/w team Dr Flex Miranda Office: [phone] Chief Complaint; dizziness fall Reason for consult: Acute Kidney Injury HPI: Pt is a 67 M with hx of diabetes Mellitus ( years), hypertension (years) overweight, BPH presented with complaints of episodes of dizziness and cvertigo with fall which are more progressive. pt reports hx of for it for last 3 months. more often now. Denies OTC/herbal meds. takes occasional NSAIDs No recent iodinated contrast exposure. Noted obvious episodes of low BP. denies urine complaints. not aware about kidney disease in past reports frequent BM but soft as well ROS: Cardiovascular: No chest pain. Pulmonary: No shortness of breath Gastrointestinal: denies abdominal pain No nausea. No vomiting. Genitourinary: No pain while urinating. Denies blood in urine. All other negative except as mentioned in HPI except dizziness/vertigo Physical Examination: General Appearance: Comfortable, in no acute respiratory distress, co-operative . overweight Vitals reviewed and noted as below Head; Atraumatic, normocephalic ENT: no ulcers no thrush. Tongue is midline. Oropharynx: no rash or ulcers. EYES: Pupils are equal, round and reactive to light accommodation. Eye muscles and extraocular movement intact. Sclera is anicteric. Neck; supple no lymphadenopathy, no thyromegaly or bruit Lungs: Normal respiratory rate/effort. Breath sounds bilateral equal and clear Heart: Normal rate. s1s2 normal. No rub or gallop. Extremities: no edema. No varicose veins Neurological: Patient is alert, awake and oriented to person, place and time. No focal deficit. Strength bilateral appropriate and equal Skin: Warm and dry. Normal turgor. No rash. Palpitation: Normal elasticity for age Abdomen: Abdomen is soft. Bowel sounds +. There is no abdominal tenderness, no guarding/rigidity no organomegaly Psych: limited insight and normal affect/mood MSK: no joint tenderness or swelling. Digits and nails normal, no deformity : kidney or bladder not palpable Labs/imaging reviewed. Past medical history, past surgical history, family history, social history, allergy reviewed and noted as below Family hx: no hx of CKD. Rest non-contributory UA no blood or protein Objective - Vital Signs/Intake and Output Vital Signs (last 24 hours): Temp Pulse Resp BP Pulse Ox 97.6 F 89 20 125/76 97 02/28/18 07:00 02/28/18 07:10 02/28/18 07:00 02/28/18 07:00 02/28/18 07:00 Intake and Output: 02/28/18 02/28/18 06:59 18:59 Intake Total 2019 Balance 2019 - Medications Medications: Current Medications Acetaminophen (Tylenol 325mg Tab) 650 mg PO Q6 PRN PRN Reason: Pain, moderate (4-7) Aspirin (Aspirin Chewable) 81 mg PO DAILY [facility] Last Admin: 02/28/18 10:29 Dose: 81 mg Calcium Carbonate (Oscal) 500 mg PO DAILY [facility] Last Admin: 02/28/18 10:29 Dose: 500 mg Cyanocobalamin (Vitamin B12 1000 Mcg/Ml Inj) 1,000 mcg IM QAM [facility] Stop: 03/03/18 10:00 Last Admin: 02/27/18 09:43 Dose: 1,000 mcg Dextrose (Dextrose 50% Inj) 0 ml IV STAT PRN; Protocol PRN Reason: Hypoglycemia Protocol Dextrose (Glutose 15) 0 gm PO ONCE PRN; Protocol PRN Reason: Hypoglycemia Protocol Ergocalciferol (Drisdol 50,000 Intl Units Cap) 1 cap PO Q7D [facility] Last Admin: 02/27/18 09:35 Dose: 1 cap Ferrous Sulfate (Feosol Liq) 300 mg PO TID [facility] Folic Acid (Folic Acid) 1 mg PO DAILY [facility] Last Admin: 02/28/18 10:29 Dose: 1 mg Glipizide (Glucotrol) 10 mg PO ACBD [facility] Last Admin: 02/28/18 08:12 Dose: 10 mg Glucagon (Glucagen Diagnostic Kit) 0 mg IM STAT PRN; Protocol PRN Reason: Hypoglycemia Protocol Sodium Chloride (Sodium Chloride 0.9%) 1,000 mls @ 100 mls/hr IV .Q10H [facility] Last Admin: 02/28/18 02:27 Dose: Not Given Insulin Detemir (Levemir) 5 unit SC ACB [facility] Last Admin: 02/28/18 08:12 Dose: 5 u Insulin Human Regular (Novolin R) 0 unit SC ACHS [facility]; Protocol Last Admin: 02/28/18 12:00 Dose: 4 units Tamsulosin HCl (Flomax) 0.4 mg PO DAILY [facility] Last Admin: 02/28/18 10:29 Dose: 0.4 mg Vitamin B Complex/Vit C/Folic Acid (Nephro-Johnson) 1 tab PO 0800 [facility] - Labs Labs: 02/25/18 14:20 02/26/18 06:19
--- NOTE | 2018-02-28 13:41 | VASCLAB ---
Date of service: 02/25/2018 PROCEDURE: Carotid Duplex Exam. HISTORY: syncope COMPARISON: None available. TECHNIQUE: Grayscale and duplex Doppler evaluation of the cervical carotid and vertebral arteries were performed. The common carotid, carotid bifurcations and cervical Internal Carotid Artery (ICA) and proximal External Carotid Artery (ECA) were evaluated. The vertebral arteries were evaluated for gross patency and flow direction. Report prepared by Mesfin Stuart, BS, RVT FINDINGS: RIGHT CAROTID ARTERIES: 1. Common Carotid Artery: No significant focal plaque formation of the right common carotid artery. Maximum Peak Systolic velocity: 81 cm/sec: End-diastolic velocity 11 cm/sec. 2. Carotid Bifurcation: Calcific plaque formation. Maximum Peak Systolic velocity: 74 cm/sec: End-diastolic velocity 11 cm/sec. 3. Internal Carotid Artery: Plaque description: 3.1. Proximal Segment: Peak systolic velocity 93 cm/sec: End-diastolic velocity 26 cm/sec - % stenosis 0-15% 3.2. Middle Segment: Peak systolic velocity 62 cm/sec: End-diastolic velocity 18 cm/sec - % stenosis 0-15% 3.3. Distal Segment: Peak systolic velocity 65 cm/sec: End-diastolic velocity 19 cm/sec - % stenosis 0-15% 4. External Carotid Artery: No significant focal plaque formation. Peak systolic velocity 120 cm/sec 5. ICA/CCA Ratio: 1.2 LEFT CAROTID ARTERIES: 1. Common Carotid Artery: No significant focal plaque formation of the left common carotid artery. Maximum Peak Systolic velocity: 81 cm/sec: End-diastolic velocity 12 cm/sec. 2. Carotid Bifurcation: plaque formation. Maximum Peak Systolic velocity: 61 cm/sec: End-diastolic velocity 7 cm/sec. 3. Internal Carotid Artery: Plaque description: 3.1. Proximal Segment: Peak systolic velocity 77 cm/sec: End-diastolic velocity 27 cm/sec - % stenosis 0-15% 3.2. Middle Segment: Peak systolic velocity 97 cm/sec: End-diastolic velocity 31 cm/sec - % stenosis 0-15% 3.3. Distal Segment: Peak systolic velocity 44 cm/sec: End-diastolic velocity 17 cm/sec - % stenosis 0-15% 4. External Carotid Artery: No significant focal plaque formation. Peak systolic velocity 76 cm/sec 5. ICA/CCA Ratio: 1.2 VERTEBRAL ARTERIES: 1. Right Vertebral Artery: The right vertebral artery flow direction is antegrade. 2. Left Vertebral Artery: The left vertebral artery flow direction is antegrade. OTHER FINDINGS: 1. Right Brachial Blood pressure: mmHg. 2. Left Brachial Blood pressure: 108 mmHg. IMPRESSION: RIGHT: Duplex scan does not suggest hemodynamically significant stenosis of the right extracranial carotid arteries. There is eccentric moderate, homogenous, and irregular calcific plaque formation at the carotid bulb. LEFT: Duplex scan does not suggest hemodynamically significant stenosis of the left extracranial carotid arteries. There is eccentric small, homogenous, and smooth calcific plaque formation at the carotid bulb.
[2018-02-28 14:14] LABS: BASO % 0.4 % (0.0-2.0); EOS # 0.1 K/uL (0.0-0.7); EOS % 1.4 % (0.0-4.0); LYMPH # 1.7 K/uL (1.0-4.3); LYMPH % 29.9 % (20.0-40.0); MEAN CELL VOLUME 88.2 fL (80.0-94.0); MEAN CORPUSCULAR HEMOGLOBIN 30.4 pg (27.0-31.0); MEAN CORPUSCULAR HGB CONC 34.5 g/dL (33.0-37.0); MEAN PLATELET VOLUME 8.3 fL (7.2-11.7); MONO # 0.5 K/uL (0.0-0.8); MONO % 8.3 % (0.0-10.0); NEUT # 3.5 K/uL (1.8-7.0); NRBC % 0.2 % (0.0-2.0); RBC 3.62 Mil/uL (4.40-5.90); RED CELL DISTRIBUTION WIDTH 13.3 % (11.5-14.5); WHITE BLOOD COUNT 5.8 K/uL (4.8-10.8)
[2018-02-28 14:22] LABS: BLOOD UREA NITROGEN 21 mg/dL (9-20); CALCIUM 8.9 mg/dl (8.6-10.4); GFR NON-AFRICAN AMERICAN 55
--- NOTE | 2018-02-28 20:43 | CARD ---
APPROVED REPORT Date of service: 02/25/2018 EKG Measurement Heart [id number] <Conclusion> Normal sinus rhythm Inferior infarct, age undetermined Abnormal ECG
--- NOTE | 2018-02-28 21:29 | CP.PCM.PN ---
Subjective - Date & Time of Evaluation Date of Evaluation: 02/28/18 Time of Evaluation: 20:40 - Subjective Subjective: Patient Renal function tests have improved. BUN is 21 and Creatinine is 1.3. He is doing better but his Blood Glucose is high. No syncopal spells since admitted. He has low hemoglobin 11 and low hematocrit 31.9 Tilting Table test in AM Objective - Vital Signs/Intake and Output Vital Signs (last 24 hours): Temp Pulse Resp BP Pulse Ox 97.6 F 76 20 148/78 93 L 02/28/18 15:00 02/28/18 15:00 02/28/18 15:00 02/28/18 15:00 02/28/18 15:00 Intake and Output: 02/28/18 03/01/18 18:59 06:59 Intake Total 1150 Balance 1150 - Medications Medications: Current Medications Acetaminophen (Tylenol 325mg Tab) 650 mg PO Q6 PRN PRN Reason: Pain, moderate (4-7) Aspirin (Aspirin Chewable) 81 mg PO DAILY [facility] Last Admin: 02/28/18 10:29 Dose: 81 mg Calcium Carbonate (Oscal) 500 mg PO DAILY [facility] Last Admin: 02/28/18 10:29 Dose: 500 mg Cyanocobalamin (Vitamin B12 1000 Mcg/Ml Inj) 1,000 mcg IM QAM [facility] Stop: 03/03/18 10:00 Last Admin: 02/28/18 15:02 Dose: 1,000 mcg Dextrose (Dextrose 50% Inj) 0 ml IV STAT PRN; Protocol PRN Reason: Hypoglycemia Protocol Dextrose (Glutose 15) 0 gm PO ONCE PRN; Protocol PRN Reason: Hypoglycemia Protocol Ergocalciferol (Drisdol 50,000 Intl Units Cap) 1 cap PO Q7D [facility] Last Admin: 02/27/18 09:35 Dose: 1 cap Ferrous Sulfate (Feosol Liq) 300 mg PO TID [facility] Last Admin: 02/28/18 18:53 Dose: 300 mg Folic Acid (Folic Acid) 1 mg PO DAILY [facility] Last Admin: 02/28/18 10:29 Dose: 1 mg Glipizide (Glucotrol) 10 mg PO ACBD [facility] Last Admin: 02/28/18 18:53 Dose: 10 mg Glucagon (Glucagen Diagnostic Kit) 0 mg IM STAT PRN; Protocol PRN Reason: Hypoglycemia Protocol Insulin Detemir (Levemir) 5 unit SC ACB [facility] Last Admin: 02/28/18 08:12 Dose: 5 u Insulin Human Regular (Novolin R) 0 unit SC ACHS [facility]; Protocol Last Admin: 02/28/18 18:54 Dose: 4 units Tamsulosin HCl (Flomax) 0.4 mg PO DAILY [facility] Last Admin: 02/28/18 10:29 Dose: 0.4 mg Vitamin B Complex/Vit C/Folic Acid (Nephro-Johnson) 1 tab PO 0800 [facility] - Labs Labs: 02/28/18 14:03 02/28/18 14:03 Assessment and Plan (1) Difficulty walking Status: Acute (2) Diabetes mellitus, insulin dependent (IDDM), uncontrolled Status: Chronic (3) Obesity (BMI 30.0-34.9) Status: Chronic (4) Cerebral vascular insufficiency Status: Chronic
[2018-03-01 00:02] LABS: ALBUMIN (PEP) 3.5 g/dL (3.8-4.8); ALPHA-1-GLOBULIN (PEP) 0.3 g/dL (0.2-0.3)
--- NOTE | 2018-03-01 07:47 | PN ---
DATE: 02/28/2018 The patient is complaining of dizziness, weakness, sugar evaluated . Cardiology evaluation, echo, tilt table test. Jesús Xie MD
[2018-03-01] MEDS: (Novolin R) Insulin Human Regular 100 units/ml vial SC SCH ×2 (07:50→12:51)
[2018-03-01] MEDS: Insulin Detemir 100 units/ml Vial (Levemir) SC SCH (07:50)
[2018-03-01] MEDS ORDERED: Multivitamin Vitamin B Complex (Nephro-Vite) Tab PO SCH (08:00)
--- NOTE | 2018-03-01 10:51 | CP.PCM.PN ---
Subjective - Date & Time of Evaluation Date of Evaluation: 03/01/18 Time of Evaluation: 10:43 - Subjective Subjective: After discussing risks and benefits of TILT TABLA TESTING, informed consent was obtained and signed consent placed in patient chart. PROCEDURE: TILT TABLE TEST FINDINGS: Baseline BP 148/78 mmHg ; HR 84 ; EKG: NSR ; O2 sat 97% -----> No sx's Head up tilt 30 degrees: 140/78 mmHg; HR 79; EKG: NSR; O2 sat 97% -----> No Sx's Head up tilt 60-70 degrees: BP 113/64; HR 95; EKG NSR; O2 sat 97%; -----> No sx's Normal recovery BP and heart rate. Conclusions: 1. No reproducible syncope, pre-syncope, dizziness 2. No arrythmias 3. No cardioinhibitory response Findings of BP reduction from baseline of 148/78 --> 113/64 with appropriate HR variation are suggestive of mild orthostasis for which compression stockings, healthy hydration would be beneficial. Objective - Vital Signs/Intake and Output Vital Signs (last 24 hours): Temp Pulse Resp BP Pulse Ox 98.2 F 77 20 140/80 100 03/01/18 07:00 03/01/18 08:30 03/01/18 07:00 03/01/18 07:00 03/01/18 07:00 Intake and Output: 03/01/18 03/01/18 06:59 18:59 Intake Total 290 Balance 290 - Medications Medications: Current Medications Acetaminophen (Tylenol 325mg Tab) 650 mg PO Q6 PRN PRN Reason: Pain, moderate (4-7) Aspirin (Aspirin Chewable) 81 mg PO DAILY [facility] Last Admin: 02/28/18 10:29 Dose: 81 mg Calcium Carbonate (Oscal) 500 mg PO DAILY [facility] Last Admin: 02/28/18 10:29 Dose: 500 mg Cyanocobalamin (Vitamin B12 1000 Mcg/Ml Inj) 1,000 mcg IM QAM [facility] Stop: 03/03/18 10:00 Last Admin: 02/28/18 15:02 Dose: 1,000 mcg Dextrose (Dextrose 50% Inj) 0 ml IV STAT PRN; Protocol PRN Reason: Hypoglycemia Protocol Dextrose (Glutose 15) 0 gm PO ONCE PRN; Protocol PRN Reason: Hypoglycemia Protocol Ergocalciferol (Drisdol 50,000 Intl Units Cap) 1 cap PO Q7D [facility] Last Admin: 02/27/18 09:35 Dose: 1 cap Ferrous Sulfate (Feosol Liq) 300 mg PO TID [facility] Last Admin: 02/28/18 18:53 Dose: 300 mg Folic Acid (Folic Acid) 1 mg PO DAILY [facility] Last Admin: 02/28/18 10:29 Dose: 1 mg Glipizide (Glucotrol) 10 mg PO ACBD [facility] Last Admin: 03/01/18 07:50 Dose: Not Given Glucagon (Glucagen Diagnostic Kit) 0 mg IM STAT PRN; Protocol PRN Reason: Hypoglycemia Protocol Insulin Detemir (Levemir) 5 unit SC ACB [facility] Last Admin: 03/01/18 07:50 Dose: Not Given Insulin Human Regular (Novolin R) 0 unit SC [facility]; Protocol Last Admin: 03/01/18 07:50 Dose: Not Given Tamsulosin HCl (Flomax) 0.4 mg PO DAILY [facility] Last Admin: 02/28/18 10:29 Dose: 0.4 mg Vitamin B Complex/Vit C/Folic Acid (Nephro-Johnson) 1 tab PO 0800 [facility] - Labs Labs: 02/28/18 14:03 02/28/18 14:03
[2018-03-01] MEDS: Ferrous Sulfate 300 mg/5 mL Liq UD PO SCH ×2 (10:59→13:22)
--- NOTE | 2018-03-01 11:14 | EEG ---
DATE: 02/28/18 The record is obtained for history of recurrent near syncopal spell and syncopal spell, rule out seizures, rule out encephalopathy. Record was obtained while the patient was awake. The record was symmetrically equal on both sides with a velocity of 8 to 9 cycles per second. The waves were fairly formed and fairly organized with specific distribution, moderate in amplitude, reactive to eye opening by attenuation. There were no abnormal discharges. No spike. No polyspike. No sharp wave, no focal slowing, and no paroxysmal discharges. There were no periods of drowsiness. There were no periods of sleep, and there were some eye movement artifacts, electrode artifacts, and muscle movement artifacts. The record did not show any changes with photic stimulation. Hyperventilation was omitted. In summary, this is a normal awake EEG. No evidence of seizure. No evidence of encephalopathy. Clinical correlation is recommended. Mario Alejandro MD
--- NOTE | 2018-03-01 11:47 | CP.PCM.PN ---
Subjective - Date & Time of Evaluation Date of Evaluation: 03/01/18 Time of Evaluation: 11:45 - Subjective Subjective: Nephrology Consultation Note: Assessment: Stable Acute Kidney Injury (N17.9) likely due to pre-renal state, hemodynamic/low BP. r /o obstruction Underlying CKD ? stage with Diabetic chronic Kidney Disease (E11.22) and Hypertensive Chronic Kidney Disease (I12.9) with 40 mg albuminuria and 276 mg proteinuria Anemia (D64.9) overweight, BPH with increased PVR 327 mL dizziness/vertigo with fall Vit D insufficiency, Vit B12 level def Plan No acute need for renal replacement therapy at this time. Hypertension control with meds as ordered. Maintain hemodynamics stable. Avoid hypotension. Patient not on ACEI/ARB due to recent JACQUELINE. held lisinopril for now due to JACQUELINE and orthostatic hypotension Monitor Input/Output, daily weights and renal function with basic metabolic panel agree with flomax. pt was recommended for urology f/up started iron, MVI, Vit D and B12 supplements cardiology and Neuro following Check urine spot protein/creatinine, albumin/creatinine ratio, Na/cr ratio for FeNa, Check uric acid, renal and bladder sonogram Check HIV/Hep B and Hep C serology Anemia work up with TSAT/Ferritin/Vitamin B12/folate, serum protein electrophoresis with immunofixation, serum free light chain assay ([place]/Lambda) Check for 25-OH vitamin D, iPTH, phosphorus level. Dose meds/antibiotics for reduced GFR. Avoid fleets enema/magnesium based laxatives. Avoid nephrotoxins/NSAIDs/ iodinated contrast (unless needed emergently) Glycemic control Further work up/management as per primary team stable for d/c from renal perspective when planned with outpt 1-2 weeks renal follow up Thanks for allowing me to participate in care of your patient. Will follow patient with you. Please call if any Qs. had d/w team Dr Flex Miranda Office: [phone] Chief Complaint; dizziness fall Reason for consult: Acute Kidney Injury HPI: Pt is a 67 M with hx of diabetes Mellitus ( years), hypertension (years) overweight, BPH presented with complaints of episodes of dizziness and cvertigo with fall which are more progressive. pt reports hx of for it for last 3 months. more often now. Denies OTC/herbal meds. takes occasional NSAIDs No recent iodinated contrast exposure. Noted obvious episodes of low BP. denies urine complaints. not aware about kidney disease in past reports frequent BM but soft as well ROS: Cardiovascular: No chest pain. Pulmonary: No shortness of breath Gastrointestinal: denies abdominal pain No nausea. No vomiting. Genitourinary: No pain while urinating. Denies blood in urine. All other negative except as mentioned in HPI except dizziness/vertigo which also improved SBP decreased during tilt test Physical Examination: General Appearance: Comfortable, in no acute respiratory distress, co-operative . overweight Vitals reviewed and noted as below Head; Atraumatic, normocephalic ENT: no ulcers no thrush. Tongue is midline. Oropharynx: no rash or ulcers. EYES: Pupils are equal, round and reactive to light accommodation. Eye muscles and extraocular movement intact. Sclera is anicteric. Neck; supple no lymphadenopathy, no thyromegaly or bruit Lungs: Normal respiratory rate/effort. Breath sounds bilateral equal and clear Heart: Normal rate. s1s2 normal. No rub or gallop. Extremities: no edema. No varicose veins Neurological: Patient is alert, awake and oriented to person, place and time. No focal deficit. Strength bilateral appropriate and equal Skin: Warm and dry. Normal turgor. No rash. Palpitation: Normal elasticity for age Abdomen: Abdomen is soft. Bowel sounds +. There is no abdominal tenderness, no guarding/rigidity no organomegaly Psych: limited insight and normal affect/mood MSK: no joint tenderness or swelling. Digits and nails normal, no deformity : kidney or bladder not palpable Labs/imaging reviewed. Past medical history, past surgical history, family history, social history, allergy reviewed and noted as below Family hx: no hx of CKD. Rest non-contributory UA no blood or protein Objective - Vital Signs/Intake and Output Vital Signs (last 24 hours): Temp Pulse Resp BP Pulse Ox 98.2 F 77 20 140/80 100 03/01/18 07:00 03/01/18 08:30 03/01/18 07:00 03/01/18 07:00 03/01/18 07:00 Intake and Output: 03/01/18 03/01/18 06:59 18:59 Intake Total 290 Balance 290 - Medications Medications: Current Medications Acetaminophen (Tylenol 325mg Tab) 650 mg PO Q6 PRN PRN Reason: Pain, moderate (4-7) Aspirin (Aspirin Chewable) 81 mg PO DAILY [facility] Last Admin: 03/01/18 10:59 Dose: 81 mg Calcium Carbonate (Oscal) 500 mg PO DAILY [facility] Last Admin: 03/01/18 10:59 Dose: 500 mg Cyanocobalamin (Vitamin B12 1000 Mcg/Ml Inj) 1,000 mcg IM QAM [facility] Stop: 03/03/18 10:00 Last Admin: 03/01/18 09:00 Dose: Not Given Dextrose (Dextrose 50% Inj) 0 ml IV STAT PRN; Protocol PRN Reason: Hypoglycemia Protocol Dextrose (Glutose 15) 0 gm PO ONCE PRN; Protocol PRN Reason: Hypoglycemia Protocol Ergocalciferol (Drisdol 50,000 Intl Units Cap) 1 cap PO Q7D [facility] Last Admin: 02/27/18 09:35 Dose: 1 cap Ferrous Sulfate (Feosol Liq) 300 mg PO TID [facility] Last Admin: 03/01/18 10:59 Dose: 300 mg Folic Acid (Folic Acid) 1 mg PO DAILY [facility] Last Admin: 03/01/18 10:59 Dose: 1 mg Glipizide (Glucotrol) 10 mg PO ACBD [facility] Last Admin: 03/01/18 10:59 Dose: 10 mg Glucagon (Glucagen Diagnostic Kit) 0 mg IM STAT PRN; Protocol PRN Reason: Hypoglycemia Protocol Insulin Detemir (Levemir) 5 unit SC ACB [facility] Last Admin: 03/01/18 07:50 Dose: Not Given Insulin Human Regular (Novolin R) 0 unit SC [facility]; Protocol Last Admin: 03/01/18 07:50 Dose: Not Given Tamsulosin HCl (Flomax) 0.4 mg PO DAILY [facility] Last Admin: 03/01/18 10:59 Dose: 0.4 mg Vitamin B Complex/Vit C/Folic Acid (Nephro-Johnson) 1 tab PO 0800 [facility] Last Admin: 03/01/18 08:00 Dose: Not Given - Labs Labs: 02/28/18 14:03 02/28/18 14:03
--- NOTE | 2018-03-01 15:20 | CP.PCM.PN ---
Subjective - Date & Time of Evaluation Date of Evaluation: 03/01/18 Time of Evaluation: 15:20 - Subjective Subjective: -FOLLOW UP WITH YOUR PRIMARY DOCTOR IN THE OFFICE WITHIN 1 WEEK. -FOLLOW UP WITH DR. BARTH, KIDNEY DOCTOR, IN THE OFFICE WITHIN 1-2 WEEK. -CONTINUE MEDICATIONS USUAL. -STOP TAKING IBUPROFEN AND LOSARTAN/HCTZ---THESE AFFECT YOUR KIDNEYS. WHEN YOU SEE YOUR DOCTOR, THEY MAY REPEAT BLOOD WORK AND CHECK YOUR KIDNEY FUNCTION. -YOU MAY USE COMPRESSION STOCKINGS DURING THE DAY TO HELP WITH YOUR CIRCULATION AND BLOOD PRESSURE. -STAY HYDRATED, THIS ALSO AFFECTS YOUR BLOOD PRESSURE. -FOR FURTHER QUESTIONS, CONTACT DR. POTTER. Objective - Vital Signs/Intake and Output Vital Signs (last 24 hours): Temp Pulse Resp BP Pulse Ox 98.2 F 77 20 140/80 100 03/01/18 07:00 03/01/18 08:30 03/01/18 07:00 03/01/18 07:00 03/01/18 07:00 Intake and Output: 03/01/18 03/01/18 06:59 18:59 Intake Total 290 Balance 290 - Medications Medications: Current Medications Acetaminophen (Tylenol 325mg Tab) 650 mg PO Q6 PRN PRN Reason: Pain, moderate (4-7) Aspirin (Aspirin Chewable) 81 mg PO DAILY [facility] Last Admin: 03/01/18 10:59 Dose: 81 mg Calcium Carbonate (Oscal) 500 mg PO DAILY [facility] Last Admin: 03/01/18 10:59 Dose: 500 mg Cyanocobalamin (Vitamin B12 1000 Mcg/Ml Inj) 1,000 mcg IM QAM [facility] Stop: 03/03/18 10:00 Last Admin: 03/01/18 09:00 Dose: Not Given Dextrose (Dextrose 50% Inj) 0 ml IV STAT PRN; Protocol PRN Reason: Hypoglycemia Protocol Dextrose (Glutose 15) 0 gm PO ONCE PRN; Protocol PRN Reason: Hypoglycemia Protocol Ergocalciferol (Drisdol 50,000 Intl Units Cap) 1 cap PO Q7D [facility] Last Admin: 02/27/18 09:35 Dose: 1 cap Ferrous Sulfate (Feosol Liq) 300 mg PO TID [facility] Last Admin: 03/01/18 13:22 Dose: 300 mg Folic Acid (Folic Acid) 1 mg PO DAILY [facility] Last Admin: 03/01/18 10:59 Dose: 1 mg Glipizide (Glucotrol) 10 mg PO ACBD [facility] Last Admin: 03/01/18 10:59 Dose: 10 mg Glucagon (Glucagen Diagnostic Kit) 0 mg IM STAT PRN; Protocol PRN Reason: Hypoglycemia Protocol Insulin Detemir (Levemir) 5 unit SC ACB [facility] Last Admin: 03/01/18 07:50 Dose: Not Given Insulin Human Regular (Novolin R) 0 unit SC [facility]; Protocol Last Admin: 03/01/18 12:51 Dose: 4 units Tamsulosin HCl (Flomax) 0.4 mg PO DAILY [facility] Last Admin: 03/01/18 10:59 Dose: 0.4 mg Vitamin B Complex/Vit C/Folic Acid (Nephro-Johnson) 1 tab PO 0800 [facility] Last Admin: 03/01/18 08:00 Dose: Not Given - Labs Labs: 02/28/18 14:03 02/28/18 14:03
[2018-03-01 16:41] VITALS: BP 103/49; PULSE 90; TEMP 97.8; O2SAT 97
--- NOTE | 2018-03-01 17:29 | CP.PCM.PN ---
Subjective - Date & Time of Evaluation Date of Evaluation: 03/01/18 Time of Evaluation: 17:00 - Subjective Subjective: BATH STEWARD/STEWARDESS NOTES Pt d/c earlier by Dr. Xie , gut dropper reported patient needs lantus prescription before he leaves Patient stated he take lantus in am and PM 50 units and not documented in med. rec(home medication) when patient admitted hgb aic- 9.3, and bs above 250 Patient pharmacy [facility] called and states he was taking lantus BID from their records d/W Dr. 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 from pharmacy Objective - Vital Signs/Intake and Output Vital Signs (last 24 hours): Temp Pulse Resp BP Pulse Ox 97.8 F 90 20 103/49 L 97 03/01/18 16:40 03/01/18 16:40 03/01/18 16:40 03/01/18 16:40 03/01/18 16:40 Intake and Output: 03/01/18 03/01/18 06:59 18:59 Intake Total 290 Balance 290 - Medications Medications: Current Medications Acetaminophen (Tylenol 325mg Tab) 650 mg PO Q6 PRN PRN Reason: Pain, moderate (4-7) Aspirin (Aspirin Chewable) 81 mg PO DAILY [facility] Last Admin: 03/01/18 10:59 Dose: 81 mg Calcium Carbonate (Oscal) 500 mg PO DAILY [facility] Last Admin: 03/01/18 10:59 Dose: 500 mg Cyanocobalamin (Vitamin B12 1000 Mcg/Ml Inj) 1,000 mcg IM QAM [facility] Stop: 03/03/18 10:00 Last Admin: 03/01/18 09:00 Dose: Not Given Dextrose (Dextrose 50% Inj) 0 ml IV STAT PRN; Protocol PRN Reason: Hypoglycemia Protocol Dextrose (Glutose 15) 0 gm PO ONCE PRN; Protocol PRN Reason: Hypoglycemia Protocol Ergocalciferol (Drisdol 50,000 Intl Units Cap) 1 cap PO Q7D [facility] Last Admin: 02/27/18 09:35 Dose: 1 cap Ferrous Sulfate (Feosol Liq) 300 mg PO TID [facility] Last Admin: 03/01/18 13:22 Dose: 300 mg Folic Acid (Folic Acid) 1 mg PO DAILY [facility] Last Admin: 03/01/18 10:59 Dose: 1 mg Glipizide (Glucotrol) 10 mg PO ACBD [facility] Last Admin: 03/01/18 10:59 Dose: 10 mg Glucagon (Glucagen Diagnostic Kit) 0 mg IM STAT PRN; Protocol PRN Reason: Hypoglycemia Protocol Insulin Detemir (Levemir) 5 unit SC ACB [facility] Last Admin: 03/01/18 07:50 Dose: Not Given Insulin Human Regular (Novolin R) 0 unit SC [facility]; Protocol Last Admin: 03/01/18 12:51 Dose: 4 units Tamsulosin HCl (Flomax) 0.4 mg PO DAILY [facility] Last Admin: 03/01/18 10:59 Dose: 0.4 mg Vitamin B Complex/Vit C/Folic Acid (Nephro-Johnson) 1 tab PO 0800 [facility] Last Admin: 03/01/18 08:00 Dose: Not Given - Labs Labs: 02/28/18 14:03 02/28/18 14:03
--- NOTE | 2018-03-01 23:05 | CP.PCM.PN ---
Subjective - Date & Time of Evaluation Date of Evaluation: 03/01/18 Time of Evaluation: 17:00 - Subjective Subjective: Patient had his tilting table test and was discharged home. Tilting Table test showed Findings of BP reduction from baseline of 148/78 --> 113/64 with appropriate HR variation are suggestive of mild orthostasis for which compression stockings, healthy hydration would be beneficial. He will be followed as an Out Patient. His Urine protein electrophoresis is normal His Renal function is back to normal. His Diabetes is better controlled. Normal EEG. Objective - Vital Signs/Intake and Output Vital Signs (last 24 hours): Temp Pulse Resp BP Pulse Ox 97.8 F 90 20 103/49 L 97 03/01/18 16:40 03/01/18 16:40 03/01/18 16:40 03/01/18 16:40 03/01/18 16:40 - Labs Labs: 02/28/18 14:03 02/28/18 14:03 Assessment and Plan (1) Difficulty walking Status: Acute (2) Diabetes mellitus, insulin dependent (IDDM), uncontrolled Status: Chronic (3) Obesity (BMI 30.0-34.9) Status: Chronic (4) Cerebral vascular insufficiency Status: Chronic - Assessment and Plan (Free Text) Assessment: Needs an Out Patient MRA.
--- NOTE | 2018-03-04 10:13 | DS ---
Mr. Gutierrez was admitted to the hospital with a complaint of recurrent syncopes. The patient has history of diabetes. The patient is on bedrest, supportive care. Echocardiogram, tilt table test showed evidence of postural hypertension, otherwise physical therapy, total control of diabetes. Jesús Xie MD
== END 2018-03-01 17:45 | disposition home or self-care (01) | DRG 312 ==
LOC: C.ER 21:30 → C.9E 22:57 → C.6T 02-24 00:34
PROVIDERS: ADMIT Internal Medicine; ATTEND Internal Medicine
PROC: 4A02XFZ Measurement of Cardiac Rhythm, External Approach (ICD-10-PCS; principal; 2018-03-01)
PROC: 4A03XB1 Measurement of Arterial Pressure, Peripheral, External Approach (ICD-10-PCS; 2018-03-01)
DX: I95.1 Orthostatic hypotension (principal); N17.9 Acute kidney failure, unspecified; E78.00 Pure hypercholesterolemia, unspecified; R29.6 Repeated falls; J44.9 Chronic obstructive pulmonary disease, unspecified; N18.9 Chronic kidney disease, unspecified; N40.0 Benign prostatic hyperplasia without lower urinary tract symptoms; R56.9 Unspecified convulsions; D64.9 Anemia, unspecified; E55.9 Vitamin D deficiency, unspecified; E66.9 Obesity, unspecified; E78.1 Pure hyperglyceridemia; I12.9 Hypertensive chronic kidney disease with stage 1 through stage 4 chronic kidney disease, or unspecified chronic kidney disease; E10.22 Type 1 diabetes mellitus with diabetic chronic kidney disease; E10.65 Type 1 diabetes mellitus with hyperglycemia; E87.8 Other disorders of electrolyte and fluid balance, not elsewhere classified; E10.40 Type 1 diabetes mellitus with diabetic neuropathy, unspecified; Z86.73 Personal history of transient ischemic attack (TIA), and cerebral infarction without residual deficits; Z87.891 Personal history of nicotine dependence; Z68.34 Body mass index [BMI] 34.0-34.9, adult

== ENCOUNTER 2018-03-11 10:29 | Inpatient (IN) | payer MEDICARE ==
[2018-03-11 10:35] VITALS: BMI 28.1
[2018-03-11] MEDS ORDERED: Dextrose 50% SYRINGE Inj (50 ml) ONE ×2 (10:39→10:48)
--- NOTE | 2018-03-11 10:49 | C.PDOC ---
History Of Present Illness 67-year-old male with a history of diabetes was brought into the ED by his friend for altered mental status. 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 The friend notes finding the patient pulled over with the car on, windows closed, and unconscious. Per friend he transferred the patient into his own car and transported him to the ED. The friend also notes the patient has prior ED visit for frequent falls. PMD Dr. Valentine Moore. In the ED: patient is unresponsive, unable to provide HPI, blood sugar 20, given 2 amps of D50, hypothermic, and put under the warmer. Time Seen by Provider: 03/11/18 10:30 Chief Complaint (Nursing): Altered Mental Status History Per: Other (friend.) Onset/Duration Of Symptoms: Mins (prior to arrival. ) Current Symptoms Are (Timing): Still Present Past Medical History Reviewed: Historical Data, Nursing Documentation, Vital Signs Vital Signs: Last Vital Signs Temp Pulse Resp BP 145/69 03/11/18 10:35 Pulse Ox - Medical History PMH: COPD, HTN, Hypercholesterolemia, TIA Denies: Chronic Kidney Disease Surgical History: Cholecystectomy - [facility] [employer] [employer] Procedures INJECT/INFUSE NEC (07/31/04) MEASURE OF ARTERIAL PRESSURE, PERIPHERAL, CONCRETE TECHNICIAN APPROACH (02/23/18) MEASUREMENT OF CARDIAC RHYTHM, EXTERNAL APPROACH (02/23/18) Family History: States: Unknown Family Hx - Social History Hx Alcohol Use: No Hx Substance Use: No - Immunization History Hx Tetanus Toxoid Vaccination: No Hx Influenza Vaccination: No Hx Pneumococcal Vaccination: No Review Of Systems Except As Marked, All Systems Reviewed And Found Negative. Review Of Systems: ROS cannot be obtained secondary to pt's inabilty to answer questions. Neurological: Positive for: Altered Mental Status Physical Exam - Physical Exam Appears: Other Skin: No Warm, Diaphoretic, Pale, Other (cool.) Head: Atraumatic, Normacephalic Eye(s): bilateral: Other (closed.) Chest: Symmetrical, No Deformity Cardiovascular: Rhythm Regular, No Murmur Respiratory: Normal Breath Sounds, No Accessory Muscle Use, No Rales, No Rhonchi, No Wheezing Gastrointestinal/Abdominal: Normal Exam, Soft, Other (obese.) Neurological/Psych: Other (unresponsive to verbal/painful stimuli.) ED Course And Treatment - Laboratory Results Result Diagrams: 03/11/18 11:13 03/11/18 11:13 ECG: Interpreted By Me, Viewed By Me Interpretation Of ECG: -sinus rhythm. -PAC. -Inferior QA. -Rate 95 bpm Rate From EC O2 Sat by Pulse Oximetry: 99 (RA) Pulse Ox Interpretation: Normal Medical Decision Making Medical Decision Making: Plan: -EKG -Blood sent. -Glucose POC -Dextrose 50% -Blood culture -Urine culture -Urinalysis Progress/Update: Prior records indicated the patient was admitted Feb 23, 2018 admitted for dizziness and multiple falls associated wither vertigo. Patient started to come to and slowly answer questions. Repeat finger stick 204. Patient notes he took his insulin (no recent changes in dose) and ate breakfast today. Remembers feeling dizzy and weak in his car, notes the car was parked and off. Spoke with Dr. Dupree, agreed to admit patient. Disposition Discussed With Dr.: Grace Bo Counseled Patient/Family Regarding: Studies Performed - Disposition Disposition: HOSPITALIZED Disposition Time: 12:56 Condition: GUARDED Forms: [facility] [facility] ([place]) - Clinical Impression Clinical Impression: Hypoglycemia, Altered mental state - Scribe Statement The provider has reviewed the documentation as recorded by the Scribe (Natalia Barr) Provider Attestation: All medical record entries made by the Scribe were at my direction and personally dictated by me. I have reviewed the chart and agree that the record accurately reflects my personal performance of the history, physical exam, medical decision making, and the department course for this patient. I have also personally directed, reviewed, and agree with the discharge instructions and disposition. Decision To Admit - Pt Status Changed To: Hospital Disposition Of: Inpatient - Admit Certification Admit to Inpatient:: After my assessment, the patient will require hospitalization for at least two midnights. This is because of the severity of symptoms shown, intensity of services needed, and/or the medical risk in this patient being treated as an outpatient. - InPatient: Physician Admission Certification:: Patient with AMS, hypothermia, hypoglycemia, - . Bed Request Type: ICU Admitting Physician: Grace Bo Patient Diagnosis: Hypoglycemia, Altered mental state
[2018-03-11] MEDS ORDERED: Dextrose 50% SYRINGE Inj (50 ml) IVP STA ×2 (11:05→11:06)
[2018-03-11 11:25] LABS: BASO % 0.2 % (0.0-2.0); EOS % 0.4 % (0.0-4.0); LYMPH % 19.6 % (20.0-40.0); MEAN CELL VOLUME 90.1 fL (80.0-94.0); MEAN CORPUSCULAR HEMOGLOBIN 29.7 pg (27.0-31.0); MEAN PLATELET VOLUME 7.6 fL (7.2-11.7); MONO # 0.4 K/uL (0.0-0.8); NEUT # 3.6 K/uL (1.8-7.0); NEUT % 71.8 % (50.0-75.0); RBC 2.34 Mil/uL (4.40-5.90); RED CELL DISTRIBUTION WIDTH 13.7 % (11.5-14.5)
--- NOTE | 2018-03-11 11:35 | RAD ---
Date of service: 03/11/2018 PROCEDURE: CHEST RADIOGRAPH, 1 VIEW HISTORY: Diabetic COMPARISON: 02/23/2018. FINDINGS: LUNGS: There are low lung volumes. No focal consolidation. PLEURA: No pneumothorax or pleural fluid seen. CARDIOVASCULAR: Normal. OSSEOUS STRUCTURES: No significant abnormalities. VISUALIZED UPPER ABDOMEN: Normal. OTHER FINDINGS: None. IMPRESSION: Low lung volumes may be related to poor inspiratory effort. No acute findings.
[2018-03-11 11:36] LABS: ALB/GLOB RATIO 1.2 (1.0-2.1); ALBUMIN 4.9 g/dL (3.5-5.0); ALT/SGPT 27 U/L (21-72); AST/SGOT 45 U/L (17-59); BLOOD UREA NITROGEN 28 mg/dL (9-20); CALCIUM 10.2 mg/dl (8.6-10.4); GFR NON-AFRICAN AMERICAN > 60
[2018-03-11 12:06] LABS: SQUAMOUS EPITHIAL < 1 /hpf (0-5); URINE BACTERIA RARE (<OCC); URINE BILIRUBIN NEGATIVE (NEGATIVE); URINE BLOOD 2+ (NEGATIVE); URINE CLARITY Clear (Clear); URINE COLOR Yellow (YELLOW); URINE GLUCOSE (UA) 3+ mg/dL (Normal); URINE LEUKOCYTE ESTERASE NEG Leu/uL (Negative); URINE PROTEIN NEGATIVE (NEGATIVE); URINE UROBILINOGEN NORMAL mg/dL (0.2-1.0)
[2018-03-11 12:14] LABS: VENOUS BLOOD GAS BASE EXCESS -1.5 mmol/L (0.0-2.0); VENOUS BLOOD GAS PCO2 44 mmHg (40-60); VENOUS BLOOD GAS PO2 30 mm/Hg (30-55); VENOUS BLOOD PH 7.35 (7.32-7.43)
[2018-03-11] MEDS: Dextrose 5%/0.45% NS 1,000 ML IV SCH ×3 (12:32→23:18)
[2018-03-11] MEDS ORDERED: Piperacillin/Tazobact 3.375 gm 100 ML IV STA (13:00)
[2018-03-11] MEDS ORDERED: Vancomycin 1 GM 1 GM/250 ML BAG IV SCH (13:00)
[2018-03-11] MEDS ORDERED: Vancomycin 1 GM 1 GM/250 ML BAG IVPB ONE (13:15)
[2018-03-11] MEDS ORDERED: Piperacillin/Tazobact 3.375 gm 100 ML IVPB ONE (13:15)
[2018-03-11] MEDS ORDERED: Dextrose 50% SYRINGE Inj (50 ml) IV STA (13:37)
[2018-03-11] MEDS ORDERED: Sodium Chloride 0.9% 1,000 ML IV SCH (13:45)
[2018-03-11] MEDS ORDERED: Metoprolol 1 mg/ml Inj IVP ONE (13:46)
[2018-03-11 13:50] LABS: HDL CHOLESTEROL 27 mg/dL (30-70)
[2018-03-11 14:02] LABS: LDL CHOLESTEROL 48 mg/dL (0-129)
--- NOTE | 2018-03-11 14:36 | CT ---
Date of service: 03/11/2018 PROCEDURE: CT HEAD WITHOUT CONTRAST. HISTORY: fall COMPARISON: 02/23/2018. TECHNIQUE: Axial computed tomography images were obtained through the head/brain without intravenous contrast. Radiation dose: Total exam DLP = 1186.58 mGy-cm. This CT exam was performed using one or more of the following dose reduction techniques: Automated exposure control, adjustment of the mA and/or kV according to patient size, and/or use of iterative reconstruction technique. FINDINGS: HEMORRHAGE: No intracranial hemorrhage. BRAIN: Blandon-white matter differentiation is preserved. There is no mass, mass effect or abnormal extra-axial fluid collection. There is no territorial infarction. The midline sagittal structures are normal. VENTRICLES: There is mild age-related global parenchymal volume loss and proportionate enlargement of the ventricles and cortical sulci. CALVARIUM: There is no calvarial fracture. There is mild occipital soft tissue swelling. PARANASAL SINUSES: There is mild polypoid mucosal thickening in the right maxillary sinus and mild mucoperiosteal thickening in the ethmoid air cells. The remaining included paranasal sinuses are clear. MASTOID AIR CELLS: Predominantly clear. OTHER FINDINGS: The globes are symmetric and normal in appearance. IMPRESSION: No acute intracranial abnormality.
--- NOTE | 2018-03-11 15:12 | CP.PCM.HP ---
<Grace Bo V - Last Filed: 03/11/18 18:35> Meds Allergies/Adverse Reactions: Allergies Allergy/AdvReac Type Severity Reaction Status Date / Time No Known Allergies Allergy Verified 03/17/17 12:03 Results - Vital Signs Recent Vital Signs: Last Vital Signs Temp 95.7 F L 03/11/18 14:25 Pulse 97 H 03/11/18 14:25 Resp 18 03/11/18 14:25 BP 127/66 03/11/18 14:25 Pulse Ox 98 03/11/18 13:34 - Labs Result Diagrams: 03/11/18 11:13 03/11/18 11:13 Labs: Laboratory Results - last 24 hr 03/11/18 03/11/18 03/11/18 10:35 10:37 11:05 WBC RBC Hgb Hct MCV MCH MCHC RDW Plt Count MPV Neut % (Auto) Lymph % (Auto) [place] % (Auto) Eos % (Auto) Baso % (Auto) Neut # (Auto) Lymph # (Auto) [place] # (Auto) Eos # (Auto) Baso # (Auto) Retic Count pO2 VBG pH VBG pCO2 VBG HCO3 VBG Total CO2 VBG O2 Sat (Calc) VBG Base Excess VBG Potassium Glucose Lactate Sodium Potassium Chloride Carbon Dioxide Anion Gap BUN Creatinine Est GFR ( Amer) Est GFR (Non-Af Amer) POC Glucose (mg/dL) < 20 L* < 20 L* 204 H Random Glucose Hemoglobin A1c Lactic Acid Calcium Ferritin Total Bilirubin AST ALT Alkaline Phosphatase Total Protein Albumin Globulin Albumin/Globulin Ratio Triglycerides Cholesterol LDL Cholesterol Direct HDL Cholesterol CA 19-9 Antigen Free T4 TSH 3rd Generation Plasma Cortisol PM Venous Blood Potassium Urine Color Urine Clarity Urine pH Ur Specific [place] Urine Protein Urine Glucose (UA) Urine Ketones Urine Blood Urine Nitrate Urine Bilirubin Urine Urobilinogen Ur Leukocyte Esterase Urine WBC (Auto) Urine RBC (Auto) Ur Squamous Epith Cells Urine Bacteria Stool Occult Blood H.influenzae Type B Ag Ur L.pneumophila Ag N.meningitidis ACY/W135 N.meningi B/E.coli K1 Ag Group B Strep Antigen S. pneumoniae Antigen 03/11/18 03/11/18 03/11/18 11:13 11:13 11:54 WBC 5.0 RBC 2.34 L Hgb 7.0 L D Hct 21.1 L MCV 90.1 MCH 29.7 MCHC 33.0 RDW 13.7 Plt Count 193 D MPV 7.6 Neut % (Auto) 71.8 Lymph % (Auto) 19.6 L [place] % (Auto) 8.0 Eos % (Auto) 0.4 Baso % (Auto) 0.2 Neut # (Auto) 3.6 Lymph # (Auto) 1.0 [place] # (Auto) 0.4 Eos # (Auto) 0.0 Baso # (Auto) 0.0 Retic Count 2.0 H pO2 VBG pH VBG pCO2 VBG HCO3 VBG Total CO2 VBG O2 Sat (Calc) VBG Base Excess VBG Potassium Glucose Lactate Sodium 140 Potassium 4.4 Chloride 102 Carbon Dioxide 20 L Anion Gap 23 H BUN 28 H Creatinine 0.9 Est GFR ( Amer) > 60 Est GFR (Non-Af Amer) > 60 POC Glucose (mg/dL) Random Glucose 23 L* D Hemoglobin A1c Lactic Acid Calcium 10.2 Ferritin 121.0 Total Bilirubin 1.0 AST 45 ALT 27 Alkaline Phosphatase 90 Total Protein 9.0 H Albumin 4.9 Globulin 4.0 H Albumin/Globulin Ratio 1.2 Triglycerides 62 D Cholesterol 68 LDL Cholesterol Direct 48 HDL Cholesterol 27 L CA 19-9 Antigen 5.1 Free T4 TSH 3rd Generation 1.68 Plasma Cortisol PM Venous Blood Potassium Urine Color Yellow Urine Clarity Clear Urine pH 5.0 Ur Specific [place] 1.015 Urine Protein Negative Urine Glucose (UA) 3+ H Urine Ketones Negative Urine Blood 2+ H Urine Nitrate Negative Urine Bilirubin Negative Urine Urobilinogen Normal Ur Leukocyte Esterase Neg Urine WBC (Auto) 2 Urine RBC (Auto) 15 H Ur Squamous Epith Cells < 1 Urine Bacteria Rare Stool Occult Blood H.influenzae Type B Ag Ur L.pneumophila Ag N.meningitidis ACY/W135 N.meningi B/E.coli K1 Ag Group B Strep Antigen S. pneumoniae Antigen 03/11/18 03/11/18 03/11/18 12:11 12:16 12:18 WBC RBC Hgb Hct MCV MCH MCHC RDW Plt Count MPV Neut % (Auto) Lymph % (Auto) [place] % (Auto) Eos % (Auto) Baso % (Auto) Neut # (Auto) Lymph # (Auto) [place] # (Auto) Eos # (Auto) Baso # (Auto) Retic Count pO2 30 VBG pH 7.35 VBG pCO2 44 VBG HCO3 22.6 VBG Total CO2 25.7 VBG O2 Sat (Calc) 53.4 VBG Base Excess -1.5 L VBG Potassium 3.7 Glucose 79 Lactate 2.6 H Sodium 135.0 Potassium Chloride 106.0 Carbon Dioxide Anion Gap BUN Creatinine Est GFR ( Amer) Est GFR (Non-Af Amer) POC Glucose (mg/dL) 62 L 58 L Random Glucose Hemoglobin A1c Lactic Acid Calcium Ferritin Total Bilirubin AST ALT Alkaline Phosphatase Total Protein Albumin Globulin Albumin/Globulin Ratio Triglycerides Cholesterol LDL Cholesterol Direct HDL Cholesterol CA 19-9 Antigen Free T4 TSH 3rd Generation Plasma Cortisol PM Venous Blood Potassium 3.7 Urine Color Urine Clarity Urine pH Ur Specific [place] Urine Protein Urine Glucose (UA) Urine Ketones Urine Blood Urine Nitrate Urine Bilirubin Urine Urobilinogen Ur Leukocyte Esterase Urine WBC (Auto) Urine RBC (Auto) Ur Squamous Epith Cells Urine Bacteria Stool Occult Blood H.influenzae Type B Ag Ur L.pneumophila Ag N.meningitidis ACY/W135 N.meningi B/E.coli K1 Ag Group B Strep Antigen S. pneumoniae Antigen 03/11/18 03/11/18 03/11/18 12:54 13:27 13:28 WBC RBC Hgb Hct MCV MCH MCHC RDW Plt Count MPV Neut % (Auto) Lymph % (Auto) [place] % (Auto) Eos % (Auto) Baso % (Auto) Neut # (Auto) Lymph # (Auto) [place] # (Auto) Eos # (Auto) Baso # (Auto) Retic Count pO2 VBG pH VBG pCO2 VBG HCO3 VBG Total CO2 VBG O2 Sat (Calc) VBG Base Excess VBG Potassium Glucose Lactate Sodium Potassium Chloride Carbon Dioxide Anion Gap BUN Creatinine Est GFR ( Amer) Est GFR (Non-Af Amer) POC Glucose (mg/dL) 43 L 41 L Random Glucose Hemoglobin A1c Lactic Acid Calcium Ferritin Total Bilirubin AST ALT Alkaline Phosphatase Total Protein Albumin Globulin Albumin/Globulin Ratio Triglycerides Cholesterol LDL Cholesterol Direct HDL Cholesterol CA 19-9 Antigen Free T4 TSH 3rd Generation Plasma Cortisol PM Venous Blood Potassium Urine Color Urine Clarity Urine pH Ur Specific [place] Urine Protein Urine Glucose (UA) Urine Ketones Urine Blood Urine Nitrate Urine Bilirubin Urine Urobilinogen Ur Leukocyte Esterase Urine WBC (Auto) Urine RBC (Auto) Ur Squamous Epith Cells Urine Bacteria Stool Occult Blood Negative H.influenzae Type B Ag Ur L.pneumophila Ag N.meningitidis ACY/W135 N.meningi B/E.coli K1 Ag Group B Strep Antigen S. pneumoniae Antigen 03/11/18 03/11/18 03/11/18 13:31 13:31 13:47 WBC RBC Hgb Hct MCV MCH MCHC RDW Plt Count MPV Neut % (Auto) Lymph % (Auto) [place] % (Auto) Eos % (Auto) Baso % (Auto) Neut # (Auto) Lymph # (Auto) [place] # (Auto) Eos # (Auto) Baso # (Auto) Retic Count pO2 VBG pH VBG pCO2 VBG HCO3 VBG Total CO2 VBG O2 Sat (Calc) VBG Base Excess VBG Potassium Glucose Lactate Sodium Potassium Chloride Carbon Dioxide Anion Gap BUN Creatinine Est GFR ( Amer) Est GFR (Non-Af Amer) POC Glucose (mg/dL) 158 H Random Glucose Hemoglobin A1c 8.7 H Lactic Acid Calcium Ferritin Total Bilirubin AST ALT Alkaline Phosphatase Total Protein Albumin Globulin Albumin/Globulin Ratio Triglycerides Cholesterol LDL Cholesterol Direct HDL Cholesterol CA 19-9 Antigen Free T4 TSH 3rd Generation Plasma Cortisol PM 16.4 H Venous Blood Potassium Urine Color Urine Clarity Urine pH Ur Specific [place] Urine Protein Urine Glucose (UA) Urine Ketones Urine Blood Urine Nitrate Urine Bilirubin Urine Urobilinogen Ur Leukocyte Esterase Urine WBC (Auto) Urine RBC (Auto) Ur Squamous Epith Cells Urine Bacteria Stool Occult Blood H.influenzae Type B Ag Ur L.pneumophila Ag N.meningitidis ACY/W135 N.meningi B/E.coli K1 Ag Group B Strep Antigen S. pneumoniae Antigen 03/11/18 03/11/18 03/11/18 14:16 15:10 15:15 WBC RBC Hgb Hct MCV MCH MCHC RDW Plt Count MPV Neut % (Auto) Lymph % (Auto) [place] % (Auto) Eos % (Auto) Baso % (Auto) Neut # (Auto) Lymph # (Auto) [place] # (Auto) Eos # (Auto) Baso # (Auto) Retic Count pO2 VBG pH VBG pCO2 VBG HCO3 VBG Total CO2 VBG O2 Sat (Calc) VBG Base Excess VBG Potassium Glucose Lactate Sodium Potassium Chloride Carbon Dioxide Anion Gap BUN Creatinine Est GFR ( Amer) Est GFR (Non-Af Amer) POC Glucose (mg/dL) 119 H 99 Random Glucose Hemoglobin A1c Lactic Acid Calcium Ferritin Total Bilirubin AST ALT Alkaline Phosphatase Total Protein Albumin Globulin Albumin/Globulin Ratio Triglycerides Cholesterol LDL Cholesterol Direct HDL Cholesterol CA 19-9 Antigen Free T4 TSH 3rd Generation Plasma Cortisol PM Venous Blood Potassium Urine Color Urine Clarity Urine pH Ur Specific [place] Urine Protein Urine Glucose (UA) Urine Ketones Urine Blood Urine Nitrate Urine Bilirubin Urine Urobilinogen Ur Leukocyte Esterase Urine WBC (Auto) Urine RBC (Auto) Ur Squamous Epith Cells Urine Bacteria Stool Occult Blood H.influenzae Type B Ag Negative Ur L.pneumophila Ag Negative N.meningitidis ACY/W135 Negative N.meningi B/E.coli K1 Ag Negative Group B Strep Antigen Negative S. pneumoniae Antigen Negative 03/11/18 03/11/18 03/11/18 15:15 15:15 16:00 WBC RBC Hgb Hct MCV MCH MCHC RDW Plt Count MPV Neut % (Auto) Lymph % (Auto) [place] % (Auto) Eos % (Auto) Baso % (Auto) Neut # (Auto) Lymph # (Auto) [place] # (Auto) Eos # (Auto) Baso # (Auto) Retic Count pO2 VBG pH VBG pCO2 VBG HCO3 VBG Total CO2 VBG O2 Sat (Calc) VBG Base Excess VBG Potassium Glucose Lactate Sodium Potassium Chloride Carbon Dioxide Anion Gap BUN Creatinine Est GFR ( Amer) Est GFR (Non-Af Amer) POC Glucose (mg/dL) 89 Random Glucose Hemoglobin A1c Lactic Acid 2.1 Calcium Ferritin Total Bilirubin AST ALT Alkaline Phosphatase Total Protein Albumin Globulin Albumin/Globulin Ratio Triglycerides Cholesterol LDL Cholesterol Direct HDL Cholesterol CA 19-9 Antigen Free T4 1.03 TSH 3rd Generation Plasma Cortisol PM Venous Blood Potassium Urine Color Urine Clarity Urine pH Ur Specific [place] Urine Protein Urine Glucose (UA) Urine Ketones Urine Blood Urine Nitrate Urine Bilirubin Urine Urobilinogen Ur Leukocyte Esterase Urine WBC (Auto) Urine RBC (Auto) Ur Squamous Epith Cells Urine Bacteria Stool Occult Blood H.influenzae Type B Ag Ur L.pneumophila Ag N.meningitidis ACY/W135 N.meningi B/E.coli K1 Ag Group B Strep Antigen S. pneumoniae Antigen 03/11/18 17:01 WBC RBC Hgb Hct MCV MCH MCHC RDW Plt Count MPV Neut % (Auto) Lymph % (Auto) [place] % (Auto) Eos % (Auto) Baso % (Auto) Neut # (Auto) Lymph # (Auto) [place] # (Auto) Eos # (Auto) Baso # (Auto) Retic Count pO2 VBG pH VBG pCO2 VBG HCO3 VBG Total CO2 VBG O2 Sat (Calc) VBG Base Excess VBG Potassium Glucose Lactate Sodium Potassium Chloride Carbon Dioxide Anion Gap BUN Creatinine Est GFR ( Amer) Est GFR (Non-Af Amer) POC Glucose (mg/dL) 97 Random Glucose Hemoglobin A1c Lactic Acid Calcium Ferritin Total Bilirubin AST ALT Alkaline Phosphatase Total Protein Albumin Globulin Albumin/Globulin Ratio Triglycerides Cholesterol LDL Cholesterol Direct HDL Cholesterol CA 19-9 Antigen Free T4 TSH 3rd Generation Plasma Cortisol PM Venous Blood Potassium Urine Color Urine Clarity Urine pH Ur Specific [place] Urine Protein Urine Glucose (UA) Urine Ketones Urine Blood Urine Nitrate Urine Bilirubin Urine Urobilinogen Ur Leukocyte Esterase Urine WBC (Auto) Urine RBC (Auto) Ur Squamous Epith Cells Urine Bacteria Stool Occult Blood H.influenzae Type B Ag Ur L.pneumophila Ag N.meningitidis ACY/W135 N.meningi B/E.coli K1 Ag Group B Strep Antigen S. pneumoniae Antigen Attending/Attestation - Attestation I have personally seen and examined this patient.: Yes I have fully participated in the care of the patient.: Yes I have reviewed all pertinent clinical information: Yes Notes (Text): Per ED triage, 30 mins ago- friend got called for patient feeling tired In ED patient sweating a lot, weak, unresponsive ED accucheck less than 30. Assessment/Plan 1) Hypothermia Assessment/Plan * Concern for sepsis * Criteria: hypothermia, elevated lactate acid * Repeat lactate acid is downtrending * In the ED, patient received first dose of Zosyn and Vancomycin * Blood cultures (03/11/18): pending * Urine culture (03/11/18): pending * Pending procalcitonin * Infectious Disease (Dr. Merida) on consult * CT Head (03/11/18): no acute intracranial abnormality 2. Acute Anemia Assessment/Plan * Change in hemoglobin from 11-->7 (02/28 to 03/11) * Patient denies BRBPBR, denies black stool * Type and screen completed * GI (Dr. Briones) orthodontic laboratory technician-->help appreciated * Hematology (Dr. Magali Terry) orthodontic laboratory technician-->help appreciated * heme-occult negative * Reticulocyte count: 0.50 hypoproliferation * Ferritin: 121. * Iron, TIBC, iron saturation pending 3. Hypoglycemia Assessment/Plan * Patient is diabetic; unclear if related to medications or sepsis * CT Head (03/11/18): no acute intracranial abnormality * Accuchecks QAC and HS * Patient 2 doses of D50 ampules. Decadron 10mg IVP X1 4. Dizziness Assessment/Plan * Patient had recent admission past 2 weeks: * Cardiac workup: underwent tilt table: no reproducible, presyncope, dizziness. No Arrythmias, No cardioinhibitory response. Per cardio note: Findings of BP reduction from baseline of 148/78 --> 113/64 with appropriate HR variation are suggestive of mild orthostasis for which compression stockings, healthy hydration would be beneficial. * Neuro workup: pending outpatient MRA; prior EEG negative * CT Head (03/11/18): no acute intracranial abnormality 5. History of Prior Acute Renal Failure Assessment/Plan * Renal function last admission: 2.7; normalized upon d/c recommending to stop arb/hctz * Renal function normalized * Patient is off anti-hypertensives 6. History of Hypertension Assessment/Plan * off anti-hypertensives * Patient is normotensive now * echocardiogram (03/03): mild concentric left ventricular hypertrophy, left ventricle systolic function is normal, EF: 65-70%, mild pulmonary hypertension 7. History of Mild Orthostasis Assessment/Plan * Cardiac workup: underwent tilt table: no reproducible, presyncope, dizziness. No Arrythmias, No cardioinhibitory response. Per cardio note: Findings of BP reduction from baseline of 148/78 --> 113/64 with appropriate HR variation are suggestive of mild orthostasis for which compression stockings, healthy hydrat ion would be beneficial. 8. History of Prior CVA Assessment/Plan * Check hgba1c, lipid panel * Anti-hypertensives held * Aspirin held secondary to acute anemia 9. Altered mental status Assessment/Plan * possible secondary to hypoglycemic * TSH normal * Cortisol: elevated * rule out infection * CT head is negative * recent MRI (02/24/18): no acute intracranial abnormality. Mild chronic microangiopathic changes and moderate age-related global parenchymal volume loss 10. History of Ascending Aorta Assessment/Plan * Ascending aorta 4.1 X4.3cm. Maximum diameter of descending aorta 3.4 X3.5cm. Aortic calcifcations identified, unchanged compared to the prior study. pulmonary vascular congestion. No cardiac abnormalities nor is there is evidence of pericardial effusion. No vascular congestion. No lymphadenopathy 11. Prophylactic measure * Contraindications VTE ppx secondary to acute drop in hemoglobin; risk of bleeding * Protonix 40mg IV Q12H * Fall precautions * Neurochecks Q4H * Aspiration precautions * Seizure precautions * PT/OT Eval <Amarilis Negro - Last Filed: 03/11/18 18:40> History of Present Illness - History of Present Illness History of Present Illness: Hospitalist Note for Dr. Bo CC: confusion and fatigue HPI This 67-year-old male with a history of diabetes was brought into the ED by his friend for confusion. 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 Apparently, the patient called his friend, stating he felt "tired." The friend notes finding the patient pulled over with the engine on, windows closed, and that the patient was unconscious. Patient reports his friend helped him into car and transported him to the ED. The friend also notes the patient has prior ED visit for frequent falls. ED Course: patient unresponsive, unable to provide HPI, blood sugar 20, given 2 amps of D50, hypothermic, placed under the warmer. Patient admitted to ICU for Hypoglycemia of Iatrogenic Origin. Please note, full ROS could not be obtained due to clinical condition. PMHX: HTN chronic stable ; DM chronic labile ; TIA in past; CKD/JACQUELINE Social History: Former smoker Family History: Patient denies PMD Dr. Valentine Moore Present on Admission - Present on Admission Any Indicators Present on Admission: Yes History of DVT/PE: No History of Uncontrolled Diabetes: Yes Urinary Catheter: No Decubitus Ulcer Present: No History Surgical Site Infection Following: None Review of Systems - Hematologic/Lymphatic Additional comments: - Review of Systems All systems: reviewed and no additional remarkable complaints except - Constitutional Constitutional: Weight Loss (45 lbs in last 3-4 months) - EENT Eyes: As Per HPI - Cardiovascular Cardiovascular: As Per HPI - Respiratory Respiratory: As Per HPI - Gastrointestinal Gastrointestinal: As Per HPI, Loose Stools. absent: Abdominal Pain, Belching, Cramping, Hematemesis Additional comments: cholo colored stools. Past Patient History - Infectious Disease Hx of Infectious Diseases: None - Tetanus Immunizations Tetanus Immunization: Unknown - Past Medical History & Family History Past Medical History?: Yes - Past Social History Smoking Status: Former Smoker - CARDIAC Hx Hypercholesterolemia: Yes Hx Hypertension: Yes - PULMONARY Hx Chronic Obstructive Pulmonary Disease (COPD): Yes - NEUROLOGICAL Hx Transient Ischemic Attacks (TIA): Yes - HEENT Hx HEENT Problems: No - RENAL Hx Chronic Kidney Disease: No - ENDOCRINE/METABOLIC Hx Endocrine Disorders: Yes Hx Diabetes Mellitus Type 1: Yes - HEMATOLOGICAL/ONCOLOGICAL Hx Blood Disorders: No - INTEGUMENTARY Hx Dermatological Problems: No - MUSCULOSKELETAL/RHEUMATOLOGICAL Hx Musculoskeletal Disorders: Yes Hx Falls: Yes - GASTROINTESTINAL Hx Gastrointestinal Disorders: No - GENITOURINARY/GYNECOLOGICAL Hx Genitourinary Disorders: No - PSYCHIATRIC Hx Substance Use: No - SURGICAL HISTORY Hx Cholecystectomy: Yes - ANESTHESIA Hx Anesthesia: Yes Hx Anesthesia Reactions: No Hx Malignant Hyperthermia: No Physical Exam - Constitutional Appears: Toxic, No Acute Distress - Head Exam Head Exam: ATRAUMATIC, NORMAL INSPECTION, NORMOCEPHALIC - Eye Exam Eye Exam: EOMI, Normal appearance, PERRL Pupil Exam: NORMAL ACCOMODATION - ENT Exam ENT Exam: Mucous Membranes Dry - Neck Exam Neck exam: Positive for: Normal Inspection - Respiratory Exam Respiratory Exam: Clear to Auscultation Bilateral, NORMAL BREATHING PATTERN - Cardiovascular Exam Cardiovascular Exam: REGULAR RHYTHM - GI/Abdominal Exam GI & Abdominal Exam: Normal Bowel Sounds. absent: Distended, Firm, Guarding, Organomegaly, Pulsatile Mass, Rebound, Rigid - Rectal Exam Additional comments: Stool: negative occult blood - Extremities Exam Extremities exam: Positive for: normal inspection, pedal pulses present. Negative for: joint swelling - Back Exam Back exam: NORMAL INSPECTION Results - Vital Signs Recent Vital Signs: Last Vital Signs Temp 95.7 F L 03/11/18 14:25 Pulse 97 H 03/11/18 14:25 Resp 18 03/11/18 14:25 BP 127/66 03/11/18 14:25 Pulse Ox 98 03/11/18 13:34 - Labs Result Diagrams: 03/11/18 11:13 03/11/18 11:13 Labs: Laboratory Results - last 24 hr 03/11/18 03/11/18 03/11/18 10:35 10:37 11:05 WBC RBC Hgb Hct MCV MCH MCHC RDW Plt Count MPV Neut % (Auto) Lymph % (Auto) [place] % (Auto) Eos % (Auto) Baso % (Auto) Neut # (Auto) Lymph # (Auto) [place] # (Auto) Eos # (Auto) Baso # (Auto) Retic Count pO2 VBG pH VBG pCO2 VBG HCO3 VBG Total CO2 VBG O2 Sat (Calc) VBG Base Excess VBG Potassium Glucose Lactate Sodium Potassium Chloride Carbon Dioxide Anion Gap BUN Creatinine Est GFR ( Amer) Est GFR (Non-Af Amer) POC Glucose (mg/dL) < 20 L* < 20 L* 204 H Random Glucose Hemoglobin A1c Calcium Ferritin Total Bilirubin AST ALT Alkaline Phosphatase Total Protein Albumin Globulin Albumin/Globulin Ratio Triglycerides Cholesterol LDL Cholesterol Direct HDL Cholesterol CA 19-9 Antigen TSH 3rd Generation Plasma Cortisol PM Venous Blood Potassium Urine Color Urine Clarity Urine pH Ur Specific [place] Urine Protein Urine Glucose (UA) Urine Ketones Urine Blood Urine Nitrate Urine Bilirubin Urine Urobilinogen Ur Leukocyte Esterase Urine WBC (Auto) Urine RBC (Auto) Ur Squamous Epith Cells Urine Bacteria Stool Occult Blood 03/11/18 03/11/18 03/11/18 11:13 11:13 11:54 WBC 5.0 RBC 2.34 L Hgb 7.0 L D Hct 21.1 L MCV 90.1 MCH 29.7 MCHC 33.0 RDW 13.7 Plt Count 193 D MPV 7.6 Neut % (Auto) 71.8 Lymph % (Auto) 19.6 L [place] % (Auto) 8.0 Eos % (Auto) 0.4 Baso % (Auto) 0.2 Neut # (Auto) 3.6 Lymph # (Auto) 1.0 [place] # (Auto) 0.4 Eos # (Auto) 0.0 Baso # (Auto) 0.0 Retic Count 2.0 H pO2 VBG pH VBG pCO2 VBG HCO3 VBG Total CO2 VBG O2 Sat (Calc) VBG Base Excess VBG Potassium Glucose Lactate Sodium 140 Potassium 4.4 Chloride 102 Carbon Dioxide 20 L Anion Gap 23 H BUN 28 H Creatinine 0.9 Est GFR ( Amer) > 60 Est GFR (Non-Af Amer) > 60 POC Glucose (mg/dL) Random Glucose 23 L* D Hemoglobin A1c Calcium 10.2 Ferritin 121.0 Total Bilirubin 1.0 AST 45 ALT 27 Alkaline Phosphatase 90 Total Protein 9.0 H Albumin 4.9 Globulin 4.0 H Albumin/Globulin Ratio 1.2 Triglycerides 62 D Cholesterol 68 LDL Cholesterol Direct 48 HDL Cholesterol 27 L CA 19-9 Antigen 5.1 TSH 3rd Generation 1.68 Plasma Cortisol PM Venous Blood Potassium Urine Color Yellow Urine Clarity Clear Urine pH 5.0 Ur Specific [place] 1.015 Urine Protein Negative Urine Glucose (UA) 3+ H Urine Ketones Negative Urine Blood 2+ H Urine Nitrate Negative Urine Bilirubin Negative Urine Urobilinogen Normal Ur Leukocyte Esterase Neg Urine WBC (Auto) 2 Urine RBC (Auto) 15 H Ur Squamous Epith Cells < 1 Urine Bacteria Rare Stool Occult Blood 03/11/18 03/11/18 03/11/18 12:11 12:16 12:18 WBC RBC Hgb Hct MCV MCH MCHC RDW Plt Count MPV Neut % (Auto) Lymph % (Auto) [place] % (Auto) Eos % (Auto) Baso % (Auto) Neut # (Auto) Lymph # (Auto) [place] # (Auto) Eos # (Auto) Baso # (Auto) Retic Count pO2 30 VBG pH 7.35 VBG pCO2 44 VBG HCO3 22.6 VBG Total CO2 25.7 VBG O2 Sat (Calc) 53.4 VBG Base Excess -1.5 L VBG Potassium 3.7 Glucose 79 Lactate 2.6 H Sodium 135.0 Potassium Chloride 106.0 Carbon Dioxide Anion Gap BUN Creatinine Est GFR ( Amer) Est GFR (Non-Af Amer) POC Glucose (mg/dL) 62 L 58 L Random Glucose Hemoglobin A1c Calcium Ferritin Total Bilirubin AST ALT Alkaline Phosphatase Total Protein Albumin Globulin Albumin/Globulin Ratio Triglycerides Cholesterol LDL Cholesterol Direct HDL Cholesterol CA 19-9 Antigen TSH 3rd Generation Plasma Cortisol PM Venous Blood Potassium 3.7 Urine Color Urine Clarity Urine pH Ur Specific [place] Urine Protein Urine Glucose (UA) Urine Ketones Urine Blood Urine Nitrate Urine Bilirubin Urine Urobilinogen Ur Leukocyte Esterase Urine WBC (Auto) Urine RBC (Auto) Ur Squamous Epith Cells Urine Bacteria Stool Occult Blood 03/11/18 03/11/18 03/11/18 12:54 13:27 13:28 WBC RBC Hgb Hct MCV MCH MCHC RDW Plt Count MPV Neut % (Auto) Lymph % (Auto) [place] % (Auto) Eos % (Auto) Baso % (Auto) Neut # (Auto) Lymph # (Auto) [place] # (Auto) Eos # (Auto) Baso # (Auto) Retic Count pO2 VBG pH VBG pCO2 VBG HCO3 VBG Total CO2 VBG O2 Sat (Calc) VBG Base Excess VBG Potassium Glucose Lactate Sodium Potassium Chloride Carbon Dioxide Anion Gap BUN Creatinine Est GFR ( Amer) Est GFR (Non-Af Amer) POC Glucose (mg/dL) 43 L 41 L Random Glucose Hemoglobin A1c Calcium Ferritin Total Bilirubin AST ALT Alkaline Phosphatase Total Protein Albumin Globulin Albumin/Globulin Ratio Triglycerides Cholesterol LDL Cholesterol Direct HDL Cholesterol CA 19-9 Antigen TSH 3rd Generation Plasma Cortisol PM Venous Blood Potassium Urine Color Urine Clarity Urine pH Ur Specific [place] Urine Protein Urine Glucose (UA) Urine Ketones Urine Blood Urine Nitrate Urine Bilirubin Urine Urobilinogen Ur Leukocyte Esterase Urine WBC (Auto) Urine RBC (Auto) Ur Squamous Epith Cells Urine Bacteria Stool Occult Blood Negative 03/11/18 03/11/18 03/11/18 13:31 13:31 14:16 WBC RBC Hgb Hct MCV MCH MCHC RDW Plt Count MPV Neut % (Auto) Lymph % (Auto) [place] % (Auto) Eos % (Auto) Baso % (Auto) Neut # (Auto) Lymph # (Auto) [place] # (Auto) Eos # (Auto) Baso # (Auto) Retic Count pO2 VBG pH VBG pCO2 VBG HCO3 VBG Total CO2 VBG O2 Sat (Calc) VBG Base Excess VBG Potassium Glucose Lactate Sodium Potassium Chloride Carbon Dioxide Anion Gap BUN Creatinine Est GFR ( Amer) Est GFR (Non-Af Amer) POC Glucose (mg/dL) 119 H Random Glucose Hemoglobin A1c 8.7 H Calcium Ferritin Total Bilirubin AST ALT Alkaline Phosphatase Total Protein Albumin Globulin Albumin/Globulin Ratio Triglycerides Cholesterol LDL Cholesterol Direct HDL Cholesterol CA 19-9 Antigen TSH 3rd Generation Plasma Cortisol PM 16.4 H Venous Blood Potassium Urine Color Urine Clarity Urine pH Ur Specific [place] Urine Protein Urine Glucose (UA) Urine Ketones Urine Blood Urine Nitrate Urine Bilirubin Urine Urobilinogen Ur Leukocyte Esterase Urine WBC (Auto) Urine RBC (Auto) Ur Squamous Epith Cells Urine Bacteria Stool Occult Blood Assessment & Plan - Assessment and Plan (Free Text) Assessment: This 67-year-old male with a history of diabetes was brought into the ED by his friend for confusion. 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 ED Course: patient unresponsive, unable to provide HPI, blood sugar 20, given 2 amps of D50, hypothermic, placed under the warmer. Patient admitted to ICU for Hypogycemia of iatrogenic origin. Heme - Hgb=7.0 (down from 11.9) - Monitor H/H - Iron TIBC Ferritin, Iron Sat - PT/PTT/CBC GI - Dr. Briones Consulted, recommendations appreciated - Abdominal CT scan with oral contrast - Hgb=7.0 (down from 11.9) - Monitor H/H - Dietition referral - HHD ID Severe Sepsis - No leukocytosis - Currently Afebrile - Lactic acid elevated=2.6 on ABG, repeat=2.1 - Dr. Merida consulted; recommendations appreciated - Monitor CBC Neuro - Patient complains of dizziness likely secondary to vesovagal - CT head without contrast: negative for intracranial abnormalities CV - EKG: NSR - No acute issues - Monitor Pulm - No acute issues - Monitor O2 Sat Renal - No acute issues - NS @100cc/hr initiated - Monitor with daily CMP Prognosis: guarded Patient seen and case discussed with Dr. Betzy Negro PGY1
--- NOTE | 2018-03-11 15:12 | CP.PCM.CON ---
<AdarshreiniersantiAmarilis - Last Filed: 03/11/18 18:26> History of Present Illness - History of Present Illness History of Present Illness: Critical Care Consult Note for Leeann Velasquez CC: confusion and fatigue HPI This 67-year-old male with a history of diabetes was brought into the ED by his friend for confusion. 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 Apparently, the patient called his friend, stating he felt "tired." The friend notes finding the patient pulled over with the engine on, windows closed, and that the patient was unconscious. Patient reports his friend helped him into car and transported him to the ED. The friend also notes the patient has prior ED visit for frequent falls. ED Course: patient unresponsive, unable to provide HPI, blood sugar 20, given 2 amps of D50, hypothermic, placed under the warmer. Patient admitted to ICU for Hypoglycemia of Iatrogenic Origin. Please note, full ROS could not be obtained due to clinical condition. PMHX: HTN chronic stable ; DM chronic labile ; TIA in past; CKD/JACQUELINE Social History: Former smoker Family History: Patient denies PMD Dr. Valentine Moore Review of Systems - Review of Systems All systems: reviewed and no additional remarkable complaints except - Constitutional Constitutional: Weight Loss (45 lbs in last 3-4 months) - EENT Eyes: As Per HPI - Cardiovascular Cardiovascular: As Per HPI - Respiratory Respiratory: As Per HPI - Gastrointestinal Gastrointestinal: As Per HPI, Loose Stools. absent: Abdominal Pain, Belching, Cramping, Hematemesis Additional comments: cholo colored stools. - Genitourinary Genitourinary: As Per HPI Past Patient History - Infectious Disease Hx of Infectious Diseases: None - Tetanus Immunizations Tetanus Immunization: Unknown - Past Medical History & Family History Past Medical History?: Yes - Past Social History Smoking Status: Former Smoker - CARDIAC Hx Hypercholesterolemia: Yes Hx Hypertension: Yes - PULMONARY Hx Chronic Obstructive Pulmonary Disease (COPD): Yes - NEUROLOGICAL Hx Transient Ischemic Attacks (TIA): Yes - HEENT Hx HEENT Problems: No - RENAL Hx Chronic Kidney Disease: No - ENDOCRINE/METABOLIC Hx Endocrine Disorders: Yes Hx Diabetes Mellitus Type 1: Yes - HEMATOLOGICAL/ONCOLOGICAL Hx Blood Disorders: No - INTEGUMENTARY Hx Dermatological Problems: No - MUSCULOSKELETAL/RHEUMATOLOGICAL Hx Musculoskeletal Disorders: Yes Hx Falls: Yes - GASTROINTESTINAL Hx Gastrointestinal Disorders: No - GENITOURINARY/GYNECOLOGICAL Hx Genitourinary Disorders: No - PSYCHIATRIC Hx Substance Use: No - SURGICAL HISTORY Hx Cholecystectomy: Yes - ANESTHESIA Hx Anesthesia: Yes Hx Anesthesia Reactions: No Hx Malignant Hyperthermia: No Meds Allergies/Adverse Reactions: Allergies Allergy/AdvReac Type Severity Reaction Status Date / Time No Known Allergies Allergy Verified 03/17/17 12:03 - Medications Medications: Current Medications Dextrose/Sodium Chloride (Dextrose 5%/0.45% Ns 1000 Ml) 1,000 mls @ 100 mls/hr IV .Q10H DERRICK Last Admin: 03/11/18 12:32 Dose: 100 mls/hr Vancomycin HCl (Vancomycin 1gm In Normal Saline Addvantage) 1 gm in 250 mls @ 166.667 mls/hr IV STAT DERRICK; Protocol Last Admin: 03/11/18 13:21 Dose: 166.667 mls/hr Sodium Chloride (Sodium Chloride 0.9%) 1,000 mls @ 100 mls/hr IV .Q10H DERRICK Physical Exam - Constitutional Appears: No Acute Distress - Head Exam Head Exam: ATRAUMATIC, NORMAL INSPECTION, NORMOCEPHALIC - Eye Exam Eye Exam: EOMI, Normal appearance, PERRL Pupil Exam: NORMAL ACCOMODATION - ENT Exam ENT Exam: Mucous Membranes Dry - Neck Exam Neck exam: Positive for: Normal Inspection - Respiratory Exam Respiratory Exam: Clear to Auscultation Bilateral, NORMAL BREATHING PATTERN - Cardiovascular Exam Cardiovascular Exam: REGULAR RHYTHM, RRR - GI/Abdominal Exam GI & Abdominal Exam: Normal Bowel Sounds, Soft. absent: Distended, Guarding, Organomegaly, Pulsatile Mass - Extremities Exam Extremities exam: Positive for: normal inspection, pedal pulses present. Negative for: tenderness Additional comments: scab on left knee. - Back Exam Back exam: NORMAL INSPECTION - Skin Skin Exam: Dry, Intact, Normal Color, Warm Results - Vital Signs Recent Vital Signs: Last Vital Signs Temp 95.7 F L 03/11/18 14:25 Pulse 97 H 03/11/18 14:25 Resp 18 03/11/18 14:25 BP 127/66 03/11/18 14:25 Pulse Ox 98 03/11/18 13:34 - Labs Result Diagrams: 03/11/18 11:13 03/11/18 11:13 Labs: Laboratory Results - last 24 hr 03/11/18 03/11/18 03/11/18 10:35 10:37 11:05 WBC RBC Hgb Hct MCV MCH MCHC RDW Plt Count MPV Neut % (Auto) Lymph % (Auto) [place] % (Auto) Eos % (Auto) Baso % (Auto) Neut # (Auto) Lymph # (Auto) [place] # (Auto) Eos # (Auto) Baso # (Auto) Retic Count pO2 VBG pH VBG pCO2 VBG HCO3 VBG Total CO2 VBG O2 Sat (Calc) VBG Base Excess VBG Potassium Glucose Lactate Sodium Potassium Chloride Carbon Dioxide Anion Gap BUN Creatinine Est GFR ( Amer) Est GFR (Non-Af Amer) POC Glucose (mg/dL) < 20 L* < 20 L* 204 H Random Glucose Hemoglobin A1c Calcium Ferritin Total Bilirubin AST ALT Alkaline Phosphatase Total Protein Albumin Globulin Albumin/Globulin Ratio Triglycerides Cholesterol LDL Cholesterol Direct HDL Cholesterol CA 19-9 Antigen TSH 3rd Generation Plasma Cortisol PM Venous Blood Potassium Urine Color Urine Clarity Urine pH Ur Specific [place] Urine Protein Urine Glucose (UA) Urine Ketones Urine Blood Urine Nitrate Urine Bilirubin Urine Urobilinogen Ur Leukocyte Esterase Urine WBC (Auto) Urine RBC (Auto) Ur Squamous Epith Cells Urine Bacteria Stool Occult Blood 03/11/18 03/11/18 03/11/18 11:13 11:13 11:54 WBC 5.0 RBC 2.34 L Hgb 7.0 L D Hct 21.1 L MCV 90.1 MCH 29.7 MCHC 33.0 RDW 13.7 Plt Count 193 D MPV 7.6 Neut % (Auto) 71.8 Lymph % (Auto) 19.6 L [place] % (Auto) 8.0 Eos % (Auto) 0.4 Baso % (Auto) 0.2 Neut # (Auto) 3.6 Lymph # (Auto) 1.0 [place] # (Auto) 0.4 Eos # (Auto) 0.0 Baso # (Auto) 0.0 Retic Count 2.0 H pO2 VBG pH VBG pCO2 VBG HCO3 VBG Total CO2 VBG O2 Sat (Calc) VBG Base Excess VBG Potassium Glucose Lactate Sodium 140 Potassium 4.4 Chloride 102 Carbon Dioxide 20 L Anion Gap 23 H BUN 28 H Creatinine 0.9 Est GFR ( Amer) > 60 Est GFR (Non-Af Amer) > 60 POC Glucose (mg/dL) Random Glucose 23 L* D Hemoglobin A1c Calcium 10.2 Ferritin 121.0 Total Bilirubin 1.0 AST 45 ALT 27 Alkaline Phosphatase 90 Total Protein 9.0 H Albumin 4.9 Globulin 4.0 H Albumin/Globulin Ratio 1.2 Triglycerides 62 D Cholesterol 68 LDL Cholesterol Direct 48 HDL Cholesterol 27 L CA 19-9 Antigen 5.1 TSH 3rd Generation 1.68 Plasma Cortisol PM Venous Blood Potassium Urine Color Yellow Urine Clarity Clear Urine pH 5.0 Ur Specific [place] 1.015 Urine Protein Negative Urine Glucose (UA) 3+ H Urine Ketones Negative Urine Blood 2+ H Urine Nitrate Negative Urine Bilirubin Negative Urine Urobilinogen Normal Ur Leukocyte Esterase Neg Urine WBC (Auto) 2 Urine RBC (Auto) 15 H Ur Squamous Epith Cells < 1 Urine Bacteria Rare Stool Occult Blood 03/11/18 03/11/18 03/11/18 12:11 12:16 12:18 WBC RBC Hgb Hct MCV MCH MCHC RDW Plt Count MPV Neut % (Auto) Lymph % (Auto) [place] % (Auto) Eos % (Auto) Baso % (Auto) Neut # (Auto) Lymph # (Auto) [place] # (Auto) Eos # (Auto) Baso # (Auto) Retic Count pO2 30 VBG pH 7.35 VBG pCO2 44 VBG HCO3 22.6 VBG Total CO2 25.7 VBG O2 Sat (Calc) 53.4 VBG Base Excess -1.5 L VBG Potassium 3.7 Glucose 79 Lactate 2.6 H Sodium 135.0 Potassium Chloride 106.0 Carbon Dioxide Anion Gap BUN Creatinine Est GFR ( Amer) Est GFR (Non-Af Amer) POC Glucose (mg/dL) 62 L 58 L Random Glucose Hemoglobin A1c Calcium Ferritin Total Bilirubin AST ALT Alkaline Phosphatase Total Protein Albumin Globulin Albumin/Globulin Ratio Triglycerides Cholesterol LDL Cholesterol Direct HDL Cholesterol CA 19-9 Antigen TSH 3rd Generation Plasma Cortisol PM Venous Blood Potassium 3.7 Urine Color Urine Clarity Urine pH Ur Specific [place] Urine Protein Urine Glucose (UA) Urine Ketones Urine Blood Urine Nitrate Urine Bilirubin Urine Urobilinogen Ur Leukocyte Esterase Urine WBC (Auto) Urine RBC (Auto) Ur Squamous Epith Cells Urine Bacteria Stool Occult Blood 03/11/18 03/11/18 03/11/18 12:54 13:27 13:28 WBC RBC Hgb Hct MCV MCH MCHC RDW Plt Count MPV Neut % (Auto) Lymph % (Auto) [place] % (Auto) Eos % (Auto) Baso % (Auto) Neut # (Auto) Lymph # (Auto) [place] # (Auto) Eos # (Auto) Baso # (Auto) Retic Count pO2 VBG pH VBG pCO2 VBG HCO3 VBG Total CO2 VBG O2 Sat (Calc) VBG Base Excess VBG Potassium Glucose Lactate Sodium Potassium Chloride Carbon Dioxide Anion Gap BUN Creatinine Est GFR ( Amer) Est GFR (Non-Af Amer) POC Glucose (mg/dL) 43 L 41 L Random Glucose Hemoglobin A1c Calcium Ferritin Total Bilirubin AST ALT Alkaline Phosphatase Total Protein Albumin Globulin Albumin/Globulin Ratio Triglycerides Cholesterol LDL Cholesterol Direct HDL Cholesterol CA 19-9 Antigen TSH 3rd Generation Plasma Cortisol PM Venous Blood Potassium Urine Color Urine Clarity Urine pH Ur Specific [place] Urine Protein Urine Glucose (UA) Urine Ketones Urine Blood Urine Nitrate Urine Bilirubin Urine Urobilinogen Ur Leukocyte Esterase Urine WBC (Auto) Urine RBC (Auto) Ur Squamous Epith Cells Urine Bacteria Stool Occult Blood Negative 03/11/18 03/11/18 03/11/18 13:31 13:31 14:16 WBC RBC Hgb Hct MCV MCH MCHC RDW Plt Count MPV Neut % (Auto) Lymph % (Auto) [place] % (Auto) Eos % (Auto) Baso % (Auto) Neut # (Auto) Lymph # (Auto) [place] # (Auto) Eos # (Auto) Baso # (Auto) Retic Count pO2 VBG pH VBG pCO2 VBG HCO3 VBG Total CO2 VBG O2 Sat (Calc) VBG Base Excess VBG Potassium Glucose Lactate Sodium Potassium Chloride Carbon Dioxide Anion Gap BUN Creatinine Est GFR ( Amer) Est GFR (Non-Af Amer) POC Glucose (mg/dL) 119 H Random Glucose Hemoglobin A1c 8.7 H Calcium Ferritin Total Bilirubin AST ALT Alkaline Phosphatase Total Protein Albumin Globulin Albumin/Globulin Ratio Triglycerides Cholesterol LDL Cholesterol Direct HDL Cholesterol CA 19-9 Antigen TSH 3rd Generation Plasma Cortisol PM 16.4 H Venous Blood Potassium Urine Color Urine Clarity Urine pH Ur Specific [place] Urine Protein Urine Glucose (UA) Urine Ketones Urine Blood Urine Nitrate Urine Bilirubin Urine Urobilinogen Ur Leukocyte Esterase Urine WBC (Auto) Urine RBC (Auto) Ur Squamous Epith Cells Urine Bacteria Stool Occult Blood Assessment & Plan - Assessment and Plan (Free Text) Assessment: This 67-year-old male with a history of diabetes was brought into the ED by his friend for confusion. 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 ED Course: patient unresponsive, unable to provide HPI, blood sugar 20, given 2 amps of D50, hypothermic, placed under the warmer. Patient admitted to ICU for Hypogycemia of iatrogenic origin. Heme - Hgb=7.0 (down from 11.9) - Monitor H/H - Iron TIBC Ferritin, Iron Sat - PT/PTT/CBC GI - Dr. Briones Consulted, recommendations appreciated - Abdominal CT scan with oral contrast - Hgb=7.0 (down from 11.9) - Monitor H/H - Dietition referral - HHD ID Severe Sepsis - No leukocytosis - Currently Afebrile - Lactic acid elevated=2.6 on ABG, repeat=2.1 - Dr. Merida consulted; recommendations appreciated - Monitor CBC Neuro - Patient complains of dizziness likely secondary to vesovagal - CT head without contrast: negative for intracranial abnormalities CV - EKG: NSR - No acute issues - Monitor Pulm - No acute issues - Monitor O2 Sat Renal - No acute issues - NS @100cc/hr initiated - Monitor with daily CMP Prognosis: guarded Patient seen and case discussed with Leeann Velasquez PGY1 <Ori Dupree - Last Filed: 03/12/18 11:01> Meds - Medications Medications: Current Medications Dextrose (Dextrose 50% Inj) 0 ml IV STAT PRN; Protocol PRN Reason: Hypoglycemia Protocol Dextrose (Glutose 15) 0 gm PO ONCE PRN; Protocol PRN Reason: Hypoglycemia Protocol Glucagon (Glucagen Diagnostic Kit) 0 mg IM STAT PRN; Protocol PRN Reason: Hypoglycemia Protocol Piperacillin Sod/Tazobactam Sod (Zosyn 3.375 Gm Iv Premix) 3.375 gm in 50 mls @ 50 mls/hr IVPB Q8H DERRICK; Protocol Last Admin: 03/12/18 05:00 Dose: 50 mls/hr Vancomycin/Sodium Chloride (Vancomycin 1 Gm/Ns 200 Ml) 1 gm in 200 mls @ 133 mls/hr IVPB Q12H DERRICK; Protocol Stop: 03/17/18 01:01 Last Admin: 03/12/18 01:00 Dose: 133 mls/hr Dextrose (Dextrose 5% In Water 1000 Ml) 1,000 mls @ 0 mls/hr IV .Q0M PRN; Protocol PRN Reason: Hypoglycemia Protocol Insulin Aspart (Novolog) 0 unit SC ACHS DERRICK; Protocol Last Admin: 03/12/18 08:33 Dose: 2 u Multivitamins/Minerals (Therapeutic-M Tab) 1 tab PO 0800 [facility] Pantoprazole Sodium (Protonix Inj) 40 mg IVP Q12H DERRICK Last Admin: 03/12/18 05:25 Dose: 40 mg Saccharomyces Boulardii (Florastor) 250 mg PO BID DERRICK Last Admin: 03/12/18 09:35 Dose: 250 mg Tamsulosin HCl (Flomax) 0.4 mg PO DAILY [facility] Last Admin: 03/12/18 09:35 Dose: 0.4 mg Results - Vital Signs Recent Vital Signs: Last Vital Signs Temp 99.3 F 03/11/18 20:00 Pulse 89 03/11/18 20:00 Resp 19 03/11/18 20:00 BP 103/45 L 03/11/18 20:00 Pulse Ox 96 03/11/18 20:00 - Labs Result Diagrams: 03/12/18 06:01 03/12/18 06:03 Labs: Laboratory Results - last 24 hr 03/11/18 03/11/18 03/11/18 11:05 11:13 11:13 WBC 5.0 RBC 2.34 L Hgb 7.0 L D Hct 21.1 L MCV 90.1 MCH 29.7 MCHC 33.0 RDW 13.7 Plt Count 193 D MPV 7.6 Neut % (Auto) 71.8 Lymph % (Auto) 19.6 L [place] % (Auto) 8.0 Eos % (Auto) 0.4 Baso % (Auto) 0.2 Neut # (Auto) 3.6 Lymph # (Auto) 1.0 [place] # (Auto) 0.4 Eos # (Auto) 0.0 Baso # (Auto) 0.0 Neutrophils % (Manual) Band Neutrophils % Lymphocytes % (Manual) Monocytes % (Manual) Platelet Estimate RBC Morphology Retic Count 2.0 H PT INR APTT pO2 VBG pH VBG pCO2 VBG HCO3 VBG Total CO2 VBG O2 Sat (Calc) VBG Base Excess VBG Potassium Glucose Lactate Sodium 140 Potassium 4.4 Chloride 102 Carbon Dioxide 20 L Anion Gap 23 H BUN 28 H Creatinine 0.9 Est GFR ( Amer) > 60 Est GFR (Non-Af Amer) > 60 POC Glucose (mg/dL) 204 H Random Glucose 23 L* D Hemoglobin A1c Lactic Acid Calcium 10.2 Phosphorus Magnesium Iron TIBC % Saturation Ferritin 121.0 Total Bilirubin 1.0 AST 45 ALT 27 Alkaline Phosphatase 90 Total Protein 9.0 H Albumin 4.9 Globulin 4.0 H Albumin/Globulin Ratio 1.2 Triglycerides 62 D Cholesterol 68 LDL Cholesterol Direct 48 HDL Cholesterol 27 L CA 19-9 Antigen 5.1 Free T4 TSH 3rd Generation 1.68 Plasma Cortisol PM Venous Blood Potassium Urine Color Urine Clarity Urine pH Ur Specific [place] Urine Protein Urine Glucose (UA) Urine Ketones Urine Blood Urine Nitrate Urine Bilirubin Urine Urobilinogen Ur Leukocyte Esterase Urine WBC (Auto) Urine RBC (Auto) Ur Squamous Epith Cells Urine Bacteria Stool Occult Blood H.influenzae Type B Ag Ur L.pneumophila Ag Mycoplasma pneumon IgM N.meningitidis ACY/W135 N.meningi B/E.coli K1 Ag Group B Strep Antigen S. pneumoniae Antigen 03/11/18 03/11/18 03/11/18 11:54 12:11 12:16 WBC RBC Hgb Hct MCV MCH MCHC RDW Plt Count MPV Neut % (Auto) Lymph % (Auto) [place] % (Auto) Eos % (Auto) Baso % (Auto) Neut # (Auto) Lymph # (Auto) [place] # (Auto) Eos # (Auto) Baso # (Auto) Neutrophils % (Manual) Band Neutrophils % Lymphocytes % (Manual) Monocytes % (Manual) Platelet Estimate RBC Morphology Retic Count PT INR APTT pO2 30 VBG pH 7.35 VBG pCO2 44 VBG HCO3 22.6 VBG Total CO2 25.7 VBG O2 Sat (Calc) 53.4 VBG Base Excess -1.5 L VBG Potassium 3.7 Glucose 79 Lactate 2.6 H Sodium 135.0 Potassium Chloride 106.0 Carbon Dioxide Anion Gap BUN Creatinine Est GFR ( Amer) Est GFR (Non-Af Amer) POC Glucose (mg/dL) 62 L Random Glucose Hemoglobin A1c Lactic Acid Calcium Phosphorus Magnesium Iron TIBC % Saturation Ferritin Total Bilirubin AST ALT Alkaline Phosphatase Total Protein Albumin Globulin Albumin/Globulin Ratio Triglycerides Cholesterol LDL Cholesterol Direct HDL Cholesterol CA 19-9 Antigen Free T4 TSH 3rd Generation Plasma Cortisol PM Venous Blood Potassium 3.7 Urine Color Yellow Urine Clarity Clear Urine pH 5.0 Ur Specific [place] 1.015 Urine Protein Negative Urine Glucose (UA) 3+ H Urine Ketones Negative Urine Blood 2+ H Urine Nitrate Negative Urine Bilirubin Negative Urine Urobilinogen Normal Ur Leukocyte Esterase Neg Urine WBC (Auto) 2 Urine RBC (Auto) 15 H Ur Squamous Epith Cells < 1 Urine Bacteria Rare Stool Occult Blood H.influenzae Type B Ag Ur L.pneumophila Ag Mycoplasma pneumon IgM N.meningitidis ACY/W135 N.meningi B/E.coli K1 Ag Group B Strep Antigen S. pneumoniae Antigen 03/11/18 03/11/18 03/11/18 12:18 12:54 13:27 WBC RBC Hgb Hct MCV MCH MCHC RDW Plt Count MPV Neut % (Auto) Lymph % (Auto) [place] % (Auto) Eos % (Auto) Baso % (Auto) Neut # (Auto) Lymph # (Auto) [place] # (Auto) Eos # (Auto) Baso # (Auto) Neutrophils % (Manual) Band Neutrophils % Lymphocytes % (Manual) Monocytes % (Manual) Platelet Estimate RBC Morphology Retic Count PT INR APTT pO2 VBG pH VBG pCO2 VBG HCO3 VBG Total CO2 VBG O2 Sat (Calc) VBG Base Excess VBG Potassium Glucose Lactate Sodium Potassium Chloride Carbon Dioxide Anion Gap BUN Creatinine Est GFR ( Amer) Est GFR (Non-Af Amer) POC Glucose (mg/dL) 58 L 43 L Random Glucose Hemoglobin A1c Lactic Acid Calcium Phosphorus Magnesium Iron TIBC % Saturation Ferritin Total Bilirubin AST ALT Alkaline Phosphatase Total Protein Albumin Globulin Albumin/Globulin Ratio Triglycerides Cholesterol LDL Cholesterol Direct HDL Cholesterol CA 19-9 Antigen Free T4 TSH 3rd Generation Plasma Cortisol PM Venous Blood Potassium Urine Color Urine Clarity Urine pH Ur Specific [place] Urine Protein Urine Glucose (UA) Urine Ketones Urine Blood Urine Nitrate Urine Bilirubin Urine Urobilinogen Ur Leukocyte Esterase Urine WBC (Auto) Urine RBC (Auto) Ur Squamous Epith Cells Urine Bacteria Stool Occult Blood Negative H.influenzae Type B Ag Ur L.pneumophila Ag Mycoplasma pneumon IgM N.meningitidis ACY/W135 N.meningi B/E.coli K1 Ag Group B Strep Antigen S. pneumoniae Antigen 03/11/18 03/11/18 03/11/18 13:28 13:31 13:31 WBC RBC Hgb Hct MCV MCH MCHC RDW Plt Count MPV Neut % (Auto) Lymph % (Auto) [place] % (Auto) Eos % (Auto) Baso % (Auto) Neut # (Auto) Lymph # (Auto) [place] # (Auto) Eos # (Auto) Baso # (Auto) Neutrophils % (Manual) Band Neutrophils % Lymphocytes % (Manual) Monocytes % (Manual) Platelet Estimate RBC Morphology Retic Count PT INR APTT pO2 VBG pH VBG pCO2 VBG HCO3 VBG Total CO2 VBG O2 Sat (Calc) VBG Base Excess VBG Potassium Glucose Lactate Sodium Potassium Chloride Carbon Dioxide Anion Gap BUN Creatinine Est GFR ( Amer) Est GFR (Non-Af Amer) POC Glucose (mg/dL) 41 L Random Glucose Hemoglobin A1c 8.7 H Lactic Acid Calcium Phosphorus Magnesium Iron TIBC % Saturation Ferritin Total Bilirubin AST ALT Alkaline Phosphatase Total Protein Albumin Globulin Albumin/Globulin Ratio Triglycerides Cholesterol LDL Cholesterol Direct HDL Cholesterol CA 19-9 Antigen Free T4 TSH 3rd Generation Plasma Cortisol PM 16.4 H Venous Blood Potassium Urine Color Urine Clarity Urine pH Ur Specific [place] Urine Protein Urine Glucose (UA) Urine Ketones Urine Blood Urine Nitrate Urine Bilirubin Urine Urobilinogen Ur Leukocyte Esterase Urine WBC (Auto) Urine RBC (Auto) Ur Squamous Epith Cells Urine Bacteria Stool Occult Blood H.influenzae Type B Ag Ur L.pneumophila Ag Mycoplasma pneumon IgM N.meningitidis ACY/W135 N.meningi B/E.coli K1 Ag Group B Strep Antigen S. pneumoniae Antigen 03/11/18 03/11/18 03/11/18 13:47 14:16 15:10 WBC RBC Hgb Hct MCV MCH MCHC RDW Plt Count MPV Neut % (Auto) Lymph % (Auto) [place] % (Auto) Eos % (Auto) Baso % (Auto) Neut # (Auto) Lymph # (Auto) [place] # (Auto) Eos # (Auto) Baso # (Auto) Neutrophils % (Manual) Band Neutrophils % Lymphocytes % (Manual) Monocytes % (Manual) Platelet Estimate RBC Morphology Retic Count PT INR APTT pO2 VBG pH VBG pCO2 VBG HCO3 VBG Total CO2 VBG O2 Sat (Calc) VBG Base Excess VBG Potassium Glucose Lactate Sodium Potassium Chloride Carbon Dioxide Anion Gap BUN Creatinine Est GFR ( Amer) Est GFR (Non-Af Amer) POC Glucose (mg/dL) 158 H 119 H 99 Random Glucose Hemoglobin A1c Lactic Acid Calcium Phosphorus Magnesium Iron TIBC % Saturation Ferritin Total Bilirubin AST ALT Alkaline Phosphatase Total Protein Albumin Globulin Albumin/Globulin Ratio Triglycerides Cholesterol LDL Cholesterol Direct HDL Cholesterol CA 19-9 Antigen Free T4 TSH 3rd Generation Plasma Cortisol PM Venous Blood Potassium Urine Color Urine Clarity Urine pH Ur Specific [place] Urine Protein Urine Glucose (UA) Urine Ketones Urine Blood Urine Nitrate Urine Bilirubin Urine Urobilinogen Ur Leukocyte Esterase Urine WBC (Auto) Urine RBC (Auto) Ur Squamous Epith Cells Urine Bacteria Stool Occult Blood H.influenzae Type B Ag Ur L.pneumophila Ag Mycoplasma pneumon IgM N.meningitidis ACY/W135 N.meningi B/E.coli K1 Ag Group B Strep Antigen S. pneumoniae Antigen 03/11/18 03/11/18 03/11/18 15:15 15:15 15:15 WBC RBC Hgb Hct MCV MCH MCHC RDW Plt Count MPV Neut % (Auto) Lymph % (Auto) [place] % (Auto) Eos % (Auto) Baso % (Auto) Neut # (Auto) Lymph # (Auto) [place] # (Auto) Eos # (Auto) Baso # (Auto) Neutrophils % (Manual) Band Neutrophils % Lymphocytes % (Manual) Monocytes % (Manual) Platelet Estimate RBC Morphology Retic Count PT INR APTT pO2 VBG pH VBG pCO2 VBG HCO3 VBG Total CO2 VBG O2 Sat (Calc) VBG Base Excess VBG Potassium Glucose Lactate Sodium Potassium Chloride Carbon Dioxide Anion Gap BUN Creatinine Est GFR ( Amer) Est GFR (Non-Af Amer) POC Glucose (mg/dL) Random Glucose Hemoglobin A1c Lactic Acid 2.1 Calcium Phosphorus Magnesium Iron TIBC % Saturation Ferritin Total Bilirubin AST ALT Alkaline Phosphatase Total Protein Albumin Globulin Albumin/Globulin Ratio Triglycerides Cholesterol LDL Cholesterol Direct HDL Cholesterol CA 19-9 Antigen Free T4 1.03 TSH 3rd Generation Plasma Cortisol PM Venous Blood Potassium Urine Color Urine Clarity Urine pH Ur Specific [place] Urine Protein Urine Glucose (UA) Urine Ketones Urine Blood Urine Nitrate Urine Bilirubin Urine Urobilinogen Ur Leukocyte Esterase Urine WBC (Auto) Urine RBC (Auto) Ur Squamous Epith Cells Urine Bacteria Stool Occult Blood H.influenzae Type B Ag Negative Ur L.pneumophila Ag Negative Mycoplasma pneumon IgM Negative N.meningitidis ACY/W135 Negative N.meningi B/E.coli K1 Ag Negative Group B Strep Antigen Negative S. pneumoniae Antigen Negative 03/11/18 03/11/18 03/11/18 16:00 17:01 19:13 WBC RBC Hgb Hct MCV MCH MCHC RDW Plt Count MPV Neut % (Auto) Lymph % (Auto) [place] % (Auto) Eos % (Auto) Baso % (Auto) Neut # (Auto) Lymph # (Auto) [place] # (Auto) Eos # (Auto) Baso # (Auto) Neutrophils % (Manual) Band Neutrophils % Lymphocytes % (Manual) Monocytes % (Manual) Platelet Estimate RBC Morphology Retic Count PT INR APTT pO2 VBG pH VBG pCO2 VBG HCO3 VBG Total CO2 VBG O2 Sat (Calc) VBG Base Excess VBG Potassium Glucose Lactate Sodium Potassium Chloride Carbon Dioxide Anion Gap BUN Creatinine Est GFR ( Amer) Est GFR (Non-Af Amer) POC Glucose (mg/dL) 89 97 Random Glucose Hemoglobin A1c Lactic Acid Calcium Phosphorus Magnesium Iron 72 TIBC 285 % Saturation 25 Ferritin Total Bilirubin AST ALT Alkaline Phosphatase Total Protein Albumin Globulin Albumin/Globulin Ratio Triglycerides Cholesterol LDL Cholesterol Direct HDL Cholesterol CA 19-9 Antigen Free T4 TSH 3rd Generation Plasma Cortisol PM Venous Blood Potassium Urine Color Urine Clarity Urine pH Ur Specific [place] Urine Protein Urine Glucose (UA) Urine Ketones Urine Blood Urine Nitrate Urine Bilirubin Urine Urobilinogen Ur Leukocyte Esterase Urine WBC (Auto) Urine RBC (Auto) Ur Squamous Epith Cells Urine Bacteria Stool Occult Blood H.influenzae Type B Ag Ur L.pneumophila Ag Mycoplasma pneumon IgM N.meningitidis ACY/W135 N.meningi B/E.coli K1 Ag Group B Strep Antigen S. pneumoniae Antigen 03/11/18 03/11/18 03/12/18 19:13 21:22 06:01 WBC 9.6 D RBC 3.55 L Hgb 10.8 L D Hct 31.5 L MCV 88.8 MCH 30.5 MCHC 34.3 RDW 13.9 Plt Count 312 D MPV 7.7 Neut % (Auto) 83.6 H Lymph % (Auto) 9.7 L [place] % (Auto) 6.4 Eos % (Auto) 0.1 Baso % (Auto) 0.2 Neut # (Auto) 8.1 H Lymph # (Auto) 0.9 L [place] # (Auto) 0.6 Eos # (Auto) 0.0 Baso # (Auto) 0.0 Neutrophils % (Manual) 85 H Band Neutrophils % 2 Lymphocytes % (Manual) 8 L Monocytes % (Manual) 5 Platelet Estimate Normal RBC Morphology Normal Retic Count PT 10.7 INR 1.0 APTT 44 H pO2 VBG pH VBG pCO2 VBG HCO3 VBG Total CO2 VBG O2 Sat (Calc) VBG Base Excess VBG Potassium Glucose Lactate Sodium Potassium Chloride Carbon Dioxide Anion Gap BUN Creatinine Est GFR ( Amer) Est GFR (Non-Af Amer) POC Glucose (mg/dL) 223 H Random Glucose Hemoglobin A1c Lactic Acid Calcium Phosphorus Magnesium Iron TIBC % Saturation Ferritin Total Bilirubin AST ALT Alkaline Phosphatase Total Protein Albumin Globulin Albumin/Globulin Ratio Triglycerides Cholesterol LDL Cholesterol Direct HDL Cholesterol CA 19-9 Antigen Free T4 TSH 3rd Generation Plasma Cortisol PM Venous Blood Potassium Urine Color Urine Clarity Urine pH Ur Specific [place] Urine Protein Urine Glucose (UA) Urine Ketones Urine Blood Urine Nitrate Urine Bilirubin Urine Urobilinogen Ur Leukocyte Esterase Urine WBC (Auto) Urine RBC (Auto) Ur Squamous Epith Cells Urine Bacteria Stool Occult Blood H.influenzae Type B Ag Ur L.pneumophila Ag Mycoplasma pneumon IgM N.meningitidis ACY/W135 N.meningi B/E.coli K1 Ag Group B Strep Antigen S. pneumoniae Antigen 03/12/18 03/12/18 06:03 06:05 WBC RBC Hgb Hct MCV MCH MCHC RDW Plt Count MPV Neut % (Auto) Lymph % (Auto) [place] % (Auto) Eos % (Auto) Baso % (Auto) Neut # (Auto) Lymph # (Auto) [place] # (Auto) Eos # (Auto) Baso # (Auto) Neutrophils % (Manual) Band Neutrophils % Lymphocytes % (Manual) Monocytes % (Manual) Platelet Estimate RBC Morphology Retic Count PT INR APTT pO2 VBG pH VBG pCO2 VBG HCO3 VBG Total CO2 VBG O2 Sat (Calc) VBG Base Excess VBG Potassium Glucose Lactate Sodium 135 Potassium 4.1 Chloride 103 Carbon Dioxide 21 L Anion Gap 15 BUN 19 Creatinine 0.9 Est GFR ( Amer) > 60 Est GFR (Non-Af Amer) > 60 POC Glucose (mg/dL) Random Glucose 225 H Hemoglobin A1c Lactic Acid 1.8 Calcium 9.0 Phosphorus 3.5 Magnesium 1.4 L Iron TIBC % Saturation Ferritin Total Bilirubin 0.6 AST 28 ALT 29 Alkaline Phosphatase 72 Total Protein 7.0 Albumin 4.0 Globulin 3.0 Albumin/Globulin Ratio 1.3 Triglycerides 119 D Cholesterol 200 H LDL Cholesterol Direct 107 HDL Cholesterol 71 H CA 19-9 Antigen Free T4 TSH 3rd Generation Plasma Cortisol PM Venous Blood Potassium Urine Color Urine Clarity Urine pH Ur Specific [place] Urine Protein Urine Glucose (UA) Urine Ketones Urine Blood Urine Nitrate Urine Bilirubin Urine Urobilinogen Ur Leukocyte Esterase Urine WBC (Auto) Urine RBC (Auto) Ur Squamous Epith Cells Urine Bacteria Stool Occult Blood H.influenzae Type B Ag Ur L.pneumophila Ag Mycoplasma pneumon IgM N.meningitidis ACY/W135 N.meningi B/E.coli K1 Ag Group B Strep Antigen S. pneumoniae Antigen Assessment & Plan - Assessment and Plan (Free Text) Plan: Abve resident note reviewed adn verified. 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
--- NOTE | 2018-03-11 16:08 | CP.PCM.CON ---
History of Present Illness - History of Present Illness History of Present Illness: 67 yo male h/o DM- unresponsive today- found to have hypoglycemia- gluc=20 terence hypothermia and anemia. We are asked toe valuate for anemia. Stool OB neg. Pt is more awake now. Denies abdom pain, Rb, melena, ulcer. PSH- MESFIN Review of Systems - Review of Systems Systems not reviewed;Unavailable: Altered Mental Status - Constitutional Constitutional: Fatigue. absent: Weight Loss - EENT Eyes: absent: Photophobia Nose/Mouth/Throat: absent: Throat Swelling - Cardiovascular Cardiovascular: absent: Chest Pain - Respiratory Respiratory: absent: Hemoptysis, Wheezing - Gastrointestinal Gastrointestinal: absent: Abdominal Pain, Coffee Ground Emesis, Constipation, Diarrhea, Dysphagia, Hematemesis, Hematochezia, Loose Stools, Melena, Nausea, Vomiting - Genitourinary Genitourinary: absent: Hematuria - Musculoskeletal Musculoskeletal: absent: Arthralgias - Integumentary Integumentary: absent: Jaundice - Neurological Neurological: absent: Convulsions - Endocrine Endocrine: absent: [place] Past Patient History - Infectious Disease Hx of Infectious Diseases: None - Tetanus Immunizations Tetanus Immunization: Unknown - Past Medical History & Family History Past Medical History?: Yes - Past Social History Smoking Status: Former Smoker - CARDIAC Hx Hypercholesterolemia: Yes Hx Hypertension: Yes - PULMONARY Hx Chronic Obstructive Pulmonary Disease (COPD): Yes - NEUROLOGICAL Hx Transient Ischemic Attacks (TIA): Yes - HEENT Hx HEENT Problems: No - RENAL Hx Chronic Kidney Disease: No - ENDOCRINE/METABOLIC Hx Endocrine Disorders: Yes Hx Diabetes Mellitus Type 1: Yes - HEMATOLOGICAL/ONCOLOGICAL Hx Blood Disorders: No - INTEGUMENTARY Hx Dermatological Problems: No - MUSCULOSKELETAL/RHEUMATOLOGICAL Hx Musculoskeletal Disorders: Yes Hx Falls: Yes - GASTROINTESTINAL Hx Gastrointestinal Disorders: No - GENITOURINARY/GYNECOLOGICAL Hx Genitourinary Disorders: No - PSYCHIATRIC Hx Substance Use: No - SURGICAL HISTORY Hx Cholecystectomy: Yes - ANESTHESIA Hx Anesthesia: Yes Hx Anesthesia Reactions: No Hx Malignant Hyperthermia: No Meds Allergies/Adverse Reactions: Allergies Allergy/AdvReac Type Severity Reaction Status Date / Time No Known Allergies Allergy Verified 03/17/17 12:03 - Medications Medications: Current Medications Dextrose/Sodium Chloride (Dextrose 5%/0.45% Ns 1000 Ml) 1,000 mls @ 100 mls/hr IV .Q10H DERRICK Last Admin: 03/11/18 12:32 Dose: 100 mls/hr Vancomycin HCl (Vancomycin 1gm In Normal Saline Addvantage) 1 gm in 250 mls @ 166.667 mls/hr IV STAT DERRICK; Protocol Last Admin: 03/11/18 13:21 Dose: 166.667 mls/hr Sodium Chloride (Sodium Chloride 0.9%) 1,000 mls @ 100 mls/hr IV .Q10H DERRICK Physical Exam - Constitutional Appears: Confused - Respiratory Exam Respiratory Exam: Clear to Auscultation Bilateral - Cardiovascular Exam Cardiovascular Exam: RRR - GI/Abdominal Exam GI & Abdominal Exam: Normal Bowel Sounds, Soft. absent: Distended, Mass, Rebound, Tenderness - Extremities Exam Extremities exam: Negative for: calf tenderness - Neurological Exam Neurological exam: Alert Results - Vital Signs Recent Vital Signs: Last Vital Signs Temp 95.7 F L 03/11/18 14:25 Pulse 97 H 03/11/18 14:25 Resp 18 03/11/18 14:25 BP 127/66 03/11/18 14:25 Pulse Ox 98 03/11/18 13:34 - Labs Result Diagrams: 03/11/18 11:13 03/11/18 11:13 Labs: Laboratory Results - last 24 hr 03/11/18 03/11/18 03/11/18 10:35 10:37 11:05 WBC RBC Hgb Hct MCV MCH MCHC RDW Plt Count MPV Neut % (Auto) Lymph % (Auto) [place] % (Auto) Eos % (Auto) Baso % (Auto) Neut # (Auto) Lymph # (Auto) [place] # (Auto) Eos # (Auto) Baso # (Auto) Retic Count pO2 VBG pH VBG pCO2 VBG HCO3 VBG Total CO2 VBG O2 Sat (Calc) VBG Base Excess VBG Potassium Glucose Lactate Sodium Potassium Chloride Carbon Dioxide Anion Gap BUN Creatinine Est GFR ( Amer) Est GFR (Non-Af Amer) POC Glucose (mg/dL) < 20 L* < 20 L* 204 H Random Glucose Hemoglobin A1c Lactic Acid Calcium Ferritin Total Bilirubin AST ALT Alkaline Phosphatase Total Protein Albumin Globulin Albumin/Globulin Ratio Triglycerides Cholesterol LDL Cholesterol Direct HDL Cholesterol CA 19-9 Antigen Free T4 TSH 3rd Generation Plasma Cortisol PM Venous Blood Potassium Urine Color Urine Clarity Urine pH Ur Specific [place] Urine Protein Urine Glucose (UA) Urine Ketones Urine Blood Urine Nitrate Urine Bilirubin Urine Urobilinogen Ur Leukocyte Esterase Urine WBC (Auto) Urine RBC (Auto) Ur Squamous Epith Cells Urine Bacteria Stool Occult Blood 03/11/18 03/11/18 03/11/18 11:13 11:13 11:54 WBC 5.0 RBC 2.34 L Hgb 7.0 L D Hct 21.1 L MCV 90.1 MCH 29.7 MCHC 33.0 RDW 13.7 Plt Count 193 D MPV 7.6 Neut % (Auto) 71.8 Lymph % (Auto) 19.6 L [place] % (Auto) 8.0 Eos % (Auto) 0.4 Baso % (Auto) 0.2 Neut # (Auto) 3.6 Lymph # (Auto) 1.0 [place] # (Auto) 0.4 Eos # (Auto) 0.0 Baso # (Auto) 0.0 Retic Count 2.0 H pO2 VBG pH VBG pCO2 VBG HCO3 VBG Total CO2 VBG O2 Sat (Calc) VBG Base Excess VBG Potassium Glucose Lactate Sodium 140 Potassium 4.4 Chloride 102 Carbon Dioxide 20 L Anion Gap 23 H BUN 28 H Creatinine 0.9 Est GFR ( Amer) > 60 Est GFR (Non-Af Amer) > 60 POC Glucose (mg/dL) Random Glucose 23 L* D Hemoglobin A1c Lactic Acid Calcium 10.2 Ferritin 121.0 Total Bilirubin 1.0 AST 45 ALT 27 Alkaline Phosphatase 90 Total Protein 9.0 H Albumin 4.9 Globulin 4.0 H Albumin/Globulin Ratio 1.2 Triglycerides 62 D Cholesterol 68 LDL Cholesterol Direct 48 HDL Cholesterol 27 L CA 19-9 Antigen 5.1 Free T4 TSH 3rd Generation 1.68 Plasma Cortisol PM Venous Blood Potassium Urine Color Yellow Urine Clarity Clear Urine pH 5.0 Ur Specific [place] 1.015 Urine Protein Negative Urine Glucose (UA) 3+ H Urine Ketones Negative Urine Blood 2+ H Urine Nitrate Negative Urine Bilirubin Negative Urine Urobilinogen Normal Ur Leukocyte Esterase Neg Urine WBC (Auto) 2 Urine RBC (Auto) 15 H Ur Squamous Epith Cells < 1 Urine Bacteria Rare Stool Occult Blood 03/11/18 03/11/18 03/11/18 12:11 12:16 12:18 WBC RBC Hgb Hct MCV MCH MCHC RDW Plt Count MPV Neut % (Auto) Lymph % (Auto) [place] % (Auto) Eos % (Auto) Baso % (Auto) Neut # (Auto) Lymph # (Auto) [place] # (Auto) Eos # (Auto) Baso # (Auto) Retic Count pO2 30 VBG pH 7.35 VBG pCO2 44 VBG HCO3 22.6 VBG Total CO2 25.7 VBG O2 Sat (Calc) 53.4 VBG Base Excess -1.5 L VBG Potassium 3.7 Glucose 79 Lactate 2.6 H Sodium 135.0 Potassium Chloride 106.0 Carbon Dioxide Anion Gap BUN Creatinine Est GFR ( Amer) Est GFR (Non-Af Amer) POC Glucose (mg/dL) 62 L 58 L Random Glucose Hemoglobin A1c Lactic Acid Calcium Ferritin Total Bilirubin AST ALT Alkaline Phosphatase Total Protein Albumin Globulin Albumin/Globulin Ratio Triglycerides Cholesterol LDL Cholesterol Direct HDL Cholesterol CA 19-9 Antigen Free T4 TSH 3rd Generation Plasma Cortisol PM Venous Blood Potassium 3.7 Urine Color Urine Clarity Urine pH Ur Specific [place] Urine Protein Urine Glucose (UA) Urine Ketones Urine Blood Urine Nitrate Urine Bilirubin Urine Urobilinogen Ur Leukocyte Esterase Urine WBC (Auto) Urine RBC (Auto) Ur Squamous Epith Cells Urine Bacteria Stool Occult Blood 03/11/18 03/11/18 03/11/18 12:54 13:27 13:28 WBC RBC Hgb Hct MCV MCH MCHC RDW Plt Count MPV Neut % (Auto) Lymph % (Auto) [place] % (Auto) Eos % (Auto) Baso % (Auto) Neut # (Auto) Lymph # (Auto) [place] # (Auto) Eos # (Auto) Baso # (Auto) Retic Count pO2 VBG pH VBG pCO2 VBG HCO3 VBG Total CO2 VBG O2 Sat (Calc) VBG Base Excess VBG Potassium Glucose Lactate Sodium Potassium Chloride Carbon Dioxide Anion Gap BUN Creatinine Est GFR ( Amer) Est GFR (Non-Af Amer) POC Glucose (mg/dL) 43 L 41 L Random Glucose Hemoglobin A1c Lactic Acid Calcium Ferritin Total Bilirubin AST ALT Alkaline Phosphatase Total Protein Albumin Globulin Albumin/Globulin Ratio Triglycerides Cholesterol LDL Cholesterol Direct HDL Cholesterol CA 19-9 Antigen Free T4 TSH 3rd Generation Plasma Cortisol PM Venous Blood Potassium Urine Color Urine Clarity Urine pH Ur Specific [place] Urine Protein Urine Glucose (UA) Urine Ketones Urine Blood Urine Nitrate Urine Bilirubin Urine Urobilinogen Ur Leukocyte Esterase Urine WBC (Auto) Urine RBC (Auto) Ur Squamous Epith Cells Urine Bacteria Stool Occult Blood Negative 03/11/18 03/11/18 03/11/18 13:31 13:31 13:47 WBC RBC Hgb Hct MCV MCH MCHC RDW Plt Count MPV Neut % (Auto) Lymph % (Auto) [place] % (Auto) Eos % (Auto) Baso % (Auto) Neut # (Auto) Lymph # (Auto) [place] # (Auto) Eos # (Auto) Baso # (Auto) Retic Count pO2 VBG pH VBG pCO2 VBG HCO3 VBG Total CO2 VBG O2 Sat (Calc) VBG Base Excess VBG Potassium Glucose Lactate Sodium Potassium Chloride Carbon Dioxide Anion Gap BUN Creatinine Est GFR ( Amer) Est GFR (Non-Af Amer) POC Glucose (mg/dL) 158 H Random Glucose Hemoglobin A1c 8.7 H Lactic Acid Calcium Ferritin Total Bilirubin AST ALT Alkaline Phosphatase Total Protein Albumin Globulin Albumin/Globulin Ratio Triglycerides Cholesterol LDL Cholesterol Direct HDL Cholesterol CA 19-9 Antigen Free T4 TSH 3rd Generation Plasma Cortisol PM 16.4 H Venous Blood Potassium Urine Color Urine Clarity Urine pH Ur Specific [place] Urine Protein Urine Glucose (UA) Urine Ketones Urine Blood Urine Nitrate Urine Bilirubin Urine Urobilinogen Ur Leukocyte Esterase Urine WBC (Auto) Urine RBC (Auto) Ur Squamous Epith Cells Urine Bacteria Stool Occult Blood 03/11/18 03/11/18 03/11/18 14:16 15:10 15:15 WBC RBC Hgb Hct MCV MCH MCHC RDW Plt Count MPV Neut % (Auto) Lymph % (Auto) [place] % (Auto) Eos % (Auto) Baso % (Auto) Neut # (Auto) Lymph # (Auto) [place] # (Auto) Eos # (Auto) Baso # (Auto) Retic Count pO2 VBG pH VBG pCO2 VBG HCO3 VBG Total CO2 VBG O2 Sat (Calc) VBG Base Excess VBG Potassium Glucose Lactate Sodium Potassium Chloride Carbon Dioxide Anion Gap BUN Creatinine Est GFR ( Amer) Est GFR (Non-Af Amer) POC Glucose (mg/dL) 119 H 99 Random Glucose Hemoglobin A1c Lactic Acid Calcium Ferritin Total Bilirubin AST ALT Alkaline Phosphatase Total Protein Albumin Globulin Albumin/Globulin Ratio Triglycerides Cholesterol LDL Cholesterol Direct HDL Cholesterol CA 19-9 Antigen Free T4 1.03 TSH 3rd Generation Plasma Cortisol PM Venous Blood Potassium Urine Color Urine Clarity Urine pH Ur Specific [place] Urine Protein Urine Glucose (UA) Urine Ketones Urine Blood Urine Nitrate Urine Bilirubin Urine Urobilinogen Ur Leukocyte Esterase Urine WBC (Auto) Urine RBC (Auto) Ur Squamous Epith Cells Urine Bacteria Stool Occult Blood 03/11/18 03/11/18 15:15 16:00 WBC RBC Hgb Hct MCV MCH MCHC RDW Plt Count MPV Neut % (Auto) Lymph % (Auto) [place] % (Auto) Eos % (Auto) Baso % (Auto) Neut # (Auto) Lymph # (Auto) [place] # (Auto) Eos # (Auto) Baso # (Auto) Retic Count pO2 VBG pH VBG pCO2 VBG HCO3 VBG Total CO2 VBG O2 Sat (Calc) VBG Base Excess VBG Potassium Glucose Lactate Sodium Potassium Chloride Carbon Dioxide Anion Gap BUN Creatinine Est GFR ( Amer) Est GFR (Non-Af Amer) POC Glucose (mg/dL) 89 Random Glucose Hemoglobin A1c Lactic Acid 2.1 Calcium Ferritin Total Bilirubin AST ALT Alkaline Phosphatase Total Protein Albumin Globulin Albumin/Globulin Ratio Triglycerides Cholesterol LDL Cholesterol Direct HDL Cholesterol CA 19-9 Antigen Free T4 TSH 3rd Generation Plasma Cortisol PM Venous Blood Potassium Urine Color Urine Clarity Urine pH Ur Specific [place] Urine Protein Urine Glucose (UA) Urine Ketones Urine Blood Urine Nitrate Urine Bilirubin Urine Urobilinogen Ur Leukocyte Esterase Urine WBC (Auto) Urine RBC (Auto) Ur Squamous Epith Cells Urine Bacteria Stool Occult Blood Assessment & Plan - Assessment and Plan (Free Text) Assessment: 1) Hypoglycemia- consider meds, sepsis 2) AMS 3) hypothermia 4) DM 5) Anemia- g neg. No report of GI bleeding. No h/o ulcer dis. No coumadin meds. REC: Check Hb, transfuse as needed, protonix, EGD. colonsocopy in future
[2018-03-11 17:16] LABS: LEGIONELLA AG URINE NEGATIVE (NEGATIVE)
[2018-03-11 17:23] LABS: N MENINGITIS ACY/W135 NEGATIVE (NEGATIVE); N MENINGITIS B/ECOLI K1 NEGATIVE (NEGATIVE); STREP PNEUMONIAE NEGATIVE (NEGATIVE); STREPTOCOCCUS B NEGATIVE (NEGATIVE)
[2018-03-11] MEDS ORDERED: Glucagon Recombinant 1 mg Inj IM PRN (17:49)
[2018-03-11] MEDS ORDERED: Dextrose 50% SYRINGE Inj (50 ml) IV PRN (17:49)
[2018-03-11] MEDS ORDERED: Iohexol 240 (50 ml) PO ONE (18:00)
[2018-03-11 19:25] LABS: PROTHROMBIN TIME 10.7 SECONDS (9.7-12.2)
[2018-03-11 19:32] LABS: IRON 72 ug/dL (49-181)
[2018-03-11 19:42] LABS: % IRON SATURATION 25 (20-55); TOTAL IRON BINDING CAPACITY 285 ug/dL (250-450)
[2018-03-11] MEDS: Piperacill/Tazo 3.375gm in Dex 3.375 GM/50 ML BAG IVPB SCH (21:00)
[2018-03-11] MEDS: (Novolog) Insulin Aspart, Recombinant 100 u/ml 10 ml vial SC SCH (21:31)
[2018-03-11 22:05] LABS: MYCOPLASMA PNEUMONIAE IGM NEGATIVE (NEGATIVE)
[2018-03-12] MEDS: Vancomycin 1 gm/NS 200 ml 1 GM/200 ML BAG IVPB SCH ×2 (01:00→12:10)
[2018-03-12] MEDS: Piperacill/Tazo 3.375gm in Dex 3.375 GM/50 ML BAG IVPB SCH ×3 (05:00→20:38)
[2018-03-12 06:09] LABS: BASO % 0.2 % (0.0-2.0); EOS % 0.1 % (0.0-4.0); HEMOGLOBIN 10.8 g/dL (12.0-18.0); LYMPH # 0.9 K/uL (1.0-4.3); LYMPH % 9.7 % (20.0-40.0); MEAN CELL VOLUME 88.8 fL (80.0-94.0); MEAN CORPUSCULAR HEMOGLOBIN 30.5 pg (27.0-31.0); MEAN CORPUSCULAR HGB CONC 34.3 g/dL (33.0-37.0); MEAN PLATELET VOLUME 7.7 fL (7.2-11.7); MONO # 0.6 K/uL (0.0-0.8); MONO % 6.4 % (0.0-10.0); NEUT # 8.1 K/uL (1.8-7.0); NEUT % 83.6 % (50.0-75.0); PLATELET COUNT 312 K/uL (130-400); RBC 3.55 Mil/uL (4.40-5.90); RED CELL DISTRIBUTION WIDTH 13.9 % (11.5-14.5); WHITE BLOOD COUNT 9.6 K/uL (4.8-10.8)
[2018-03-12 06:29] LABS: ALB/GLOB RATIO 1.3 (1.0-2.1); ALT/SGPT 29 U/L (21-72); AST/SGOT 28 U/L (17-59); BLOOD UREA NITROGEN 19 mg/dL (9-20); GFR NON-AFRICAN AMERICAN > 60; HDL CHOLESTEROL 71 mg/dL (30-70)
[2018-03-12 06:39] LABS: LDL CHOLESTEROL 107 mg/dL (0-129)
--- NOTE | 2018-03-12 07:52 | CP.PCM.PN ---
Subjective - Date & Time of Evaluation Date of Evaluation: 03/12/18 Time of Evaluation: 07:05 - Subjective Subjective: Medical Attending Note: Patient seen and examined at bedside. Patient reports dizziness, denies lightheaded, denies chest pain, denies palpitations, denies abdominal pain, denies nausea, denies vomitting, reports he has not used the bathroom yet because he wants to use the stall and is uncomfortable using the bed pain. Objective - Vital Signs/Intake and Output Vital Signs (last 24 hours): Temp Pulse Resp BP Pulse Ox 99.3 F 89 19 103/45 L 96 03/11/18 20:00 03/11/18 20:00 03/11/18 20:00 03/11/18 20:00 03/11/18 20:00 Intake and Output: 03/12/18 03/12/18 06:59 18:59 Intake Total 1500 100 Output Total 1650 0 Balance -150 100 - Medications Medications: Current Medications Dextrose (Dextrose 50% Inj) 0 ml IV STAT PRN; Protocol PRN Reason: Hypoglycemia Protocol Dextrose (Glutose 15) 0 gm PO ONCE PRN; Protocol PRN Reason: Hypoglycemia Protocol Glucagon (Glucagen Diagnostic Kit) 0 mg IM STAT PRN; Protocol PRN Reason: Hypoglycemia Protocol Dextrose/Sodium Chloride (Dextrose 5%/0.45% Ns 1000 Ml) 1,000 mls @ 100 mls/hr IV .Q10H DERRICK Last Admin: 03/11/18 23:18 Dose: 100 mls/hr Piperacillin Sod/Tazobactam Sod (Zosyn 3.375 Gm Iv Premix) 3.375 gm in 50 mls @ 50 mls/hr IVPB Q8H DERRICK; Protocol Last Admin: 03/12/18 05:00 Dose: 50 mls/hr Vancomycin/Sodium Chloride (Vancomycin 1 Gm/Ns 200 Ml) 1 gm in 200 mls @ 133 mls/hr IVPB Q12H DERRICK; Protocol Stop: 03/17/18 01:01 Last Admin: 03/12/18 01:00 Dose: 133 mls/hr Dextrose (Dextrose 5% In Water 1000 Ml) 1,000 mls @ 0 mls/hr IV .Q0M PRN; Protocol PRN Reason: Hypoglycemia Protocol Insulin Aspart (Novolog) 0 unit SC ACHS DRERICK; Protocol Last Admin: 03/11/18 21:31 Dose: Not Given Pantoprazole Sodium (Protonix Inj) 40 mg IVP Q12H DERRICK Last Admin: 03/12/18 05:25 Dose: 40 mg - Labs Labs: 03/12/18 06:01 03/12/18 06:03 PT 10.7 SECONDS (9.7-12.2) 03/11/18 19:13 INR 1.0 03/11/18 19:13 APTT 44 SECONDS (21-34) H 03/11/18 19:13 - Constitutional Appears: Non-toxic, No Acute Distress - Head Exam Head Exam: NORMAL INSPECTION - Eye Exam Eye Exam: EOMI - ENT Exam ENT Exam: Mucous Membranes Moist - Respiratory Exam Respiratory Exam: Clear to Ausculation Bilateral, NORMAL BREATHING PATTERN. absent: Rales, Rhonchi, Wheezes - Cardiovascular Exam Cardiovascular Exam: REGULAR RHYTHM, +S1, +S2 - GI/Abdominal Exam GI & Abdominal Exam: Soft, Normal Bowel Sounds. absent: Distended, Firm, Guarding, Rigid, Tenderness, Rebound - Extremities Exam Extremities Exam: absent: Pedal Edema, Tenderness - Back Exam Back Exam: absent: CVA tenderness (L), CVA tenderness (R) - Neurological Exam Neurological Exam: Alert, Awake, Oriented x3 - Psychiatric Exam Psychiatric exam: Normal Affect, Normal Mood - Skin Skin Exam: Dry, Intact, Normal Color, Warm Assessment and Plan (1) Anemia Status: Acute (2) Altered mental state Status: Acute (3) Hypoglycemia Status: Acute (4) Difficulty walking Status: Acute (5) Obesity (BMI 30.0-34.9) Status: Chronic (6) Recurrent falls Status: Resolved Attending/Attestation - Attestation I have personally seen and examined this patient.: Yes I have fully participated in the care of the patient.: Yes I have reviewed all pertinent clinical information, including history, physical exam and plan: Yes Notes (Text): Patient seen, examined and case discussed with patient. Since last admission, patient reports he was taking his medications though he was instructed not to. Patient reports he was taking Lantus 25 units, parked, had called his friend who discovered him and brought him to the ER. Patient also reports he was noncompliant and didnt purchase the stalkings needed to keep his blood pressure up. Awaiting official report on CT abdomen/pelvis: prelim: ileitis, colitis, bibasilar infiltrates, moderately enlarged prostate, and hernia--->order portable chest xray Patient is on empiric IV abx; awaiting cultures. hemoglobin rebounded without blood transfusion. Left shift likely secondary to decadron. Replete magnesium Assessment/Plan 1) Hypothermia Assessment/Plan * Concern for sepsis * Criteria: hypothermia, elevated lactate acid * Repeat lactate acid is downtrending * In the ED, patient received first dose of Zosyn and Vancomycin * Blood cultures (03/11/18): pending * Urine culture (03/11/18): pending * Pending procalcitonin * Infectious Disease (Dr. Merida) on consult * CT Head (03/11/18): no acute intracranial abnormality 2. Acute Anemia Assessment/Plan * Change in hemoglobin from 11-->7 (02/28 to 03/11) * Patient denies BRBPBR, denies black stool * Type and screen completed * GI (Dr. Briones) director translation-->help appreciated * Hematology (Dr. Magali Terry) director translation-->help appreciated * heme-occult negative * Reticulocyte count: 0.50 hypoproliferation * Ferritin: 121. * Iron, TIBC, iron saturation pending 3. Hypoglycemia Assessment/Plan * Patient is diabetic; unclear if related to medications or sepsis * CT Head (03/11/18): no acute intracranial abnormality * Accuchecks QAC and HS * Patient 2 doses of D50 ampules. Decadron 10mg IVP X1 4. Dizziness Assessment/Plan * Patient had recent admission past 2 weeks: * Cardiac workup: underwent tilt table: no reproducible, presyncope, dizziness. No Arrythmias, No cardioinhibitory response. Per cardio note: Findings of BP reduction from baseline of 148/78 --> 113/64 with appropriate HR variation are suggestive of mild orthostasis for which compression stockings, healthy hydration would be beneficial. * Neuro workup: pending outpatient MRA; prior EEG negative * CT Head (03/11/18): no acute intracranial abnormality 5. History of Prior Acute Renal Failure Assessment/Plan * Renal function last admission: 2.7; normalized upon d/c recommending to stop arb/hctz * Renal function normalized * Patient is off anti-hypertensives 6. History of Hypertension Assessment/Plan * off anti-hypertensives * Patient is normotensive now * echocardiogram (03/03): mild concentric left ventricular hypertrophy, left ventricle systolic function is normal, EF: 65-70%, mild pulmonary hypertension 7. History of Mild Orthostasis Assessment/Plan * Cardiac workup: underwent tilt table: no reproducible, presyncope, dizziness. No Arrythmias, No cardioinhibitory response. Per cardio note: Findings of BP reduction from baseline of 148/78 --> 113/64 with appropriate HR variation are suggestive of mild orthostasis for which compression stockings, healthy hydration would be beneficial. 8. History of Prior CVA Assessment/Plan * a1c: 8.7 lipid panel * Anti-hypertensives held * Aspirin held secondary to acute anemia 9. Altered mental status Assessment/Plan * possible secondary to hypoglycemic * TSH normal * Cortisol: elevated * rule out infection * CT head is negative * recent MRI (02/24/18): no acute intracranial abnormality. Mild chronic microangiopathic changes and moderate age-related global parenchymal volume loss 10. History of Ascending Aorta Assessment/Plan * Ascending aorta 4.1 X4.3cm. Maximum diameter of descending aorta 3.4 X3.5cm. Aortic calcifcations identified, unchanged compared to the prior study. pulmonary vascular congestion. No cardiac abnormalities nor is there is evidence of pericardial effusion. No vascular congestion. No lymphadenopathy 11. Prophylactic measure * Contraindications VTE ppx secondary to acute drop in hemoglobin; risk of bleeding * Protonix 40mg IV Q12H * Fall precautions * Neurochecks Q4H * Aspiration precautions * Seizure precautions * PT/OT Eval
[2018-03-12] MEDS: (Novolog) Insulin Aspart, Recombinant 100 u/ml 10 ml vial SC SCH ×4 (08:33→22:00)
[2018-03-12] MEDS: Magnesium Sulfate 1 gm in D5W 1 GM/100 ML BAG IVPB SCH ×2 (08:34→09:34)
--- NOTE | 2018-03-12 08:52 | RAD ---
Date of service: 03/12/2018 HISTORY: pneumonia on CT? COMPARISON: Portable chest 03/11/2018 11:19 a.m.. FINDINGS: LUNGS: Mild improvement in inspiratory volume. Mild improvement in left basilar atelectasis or infiltrate with improved aeration medial right basilar airspace disease as well. PLEURA: No pneumothorax bilaterally. No right pleural effusion. Limited left pleural effusion not excluded. CARDIOVASCULAR: No aortic atherosclerotic calcification present. Cardiomediastinal silhouette stable. No pulmonary vascular congestion appreciated. OSSEOUS STRUCTURES: No significant abnormalities. VISUALIZED UPPER ABDOMEN: Oral contrast is noted within large bowel in the abdomen. OTHER FINDINGS: None. IMPRESSION: Improvement in bibasilar limited airspace disease with small pleural effusion not excluded. No pulmonary vascular congestion.
[2018-03-12] MEDS: Saccharomyces Boulardi 250 mg Cap PO SCH ×2 (09:35→17:30)
[2018-03-12 09:55] LABS: BANDS 2 % (0-2); LYMPHOCYTE 8 % (20-40); MONOCYTE 5 % (0-10); NEUTROPHIL 85 % (50-75); PLATELET ESTIMATE NORMAL (NORMAL); TOTAL CELLS COUNTED 100
--- NOTE | 2018-03-12 11:58 | CP.PCM.PN ---
Subjective - Date & Time of Evaluation Date of Evaluation: 03/12/18 Time of Evaluation: 11:55 - Subjective Subjective: F/u anemia. Reports feeling better. Deniesw abdom pain, CP, TAM, cough, RB, melena, hemotysis, dysphagia Objective - Vital Signs/Intake and Output Vital Signs (last 24 hours): Temp Pulse Resp BP Pulse Ox 99.3 F 89 19 103/45 L 96 03/11/18 20:00 03/11/18 20:00 03/11/18 20:00 03/11/18 20:00 03/11/18 20:00 Intake and Output: 03/12/18 03/12/18 06:59 18:59 Intake Total 1500 880 Output Total 1650 680 Balance -150 200 - Medications Medications: Current Medications Dextrose (Dextrose 50% Inj) 0 ml IV STAT PRN; Protocol PRN Reason: Hypoglycemia Protocol Dextrose (Glutose 15) 0 gm PO ONCE PRN; Protocol PRN Reason: Hypoglycemia Protocol Glucagon (Glucagen Diagnostic Kit) 0 mg IM STAT PRN; Protocol PRN Reason: Hypoglycemia Protocol Piperacillin Sod/Tazobactam Sod (Zosyn 3.375 Gm Iv Premix) 3.375 gm in 50 mls @ 50 mls/hr IVPB Q8H [facility]; Protocol Last Admin: 03/12/18 05:00 Dose: 50 mls/hr Vancomycin/Sodium Chloride (Vancomycin 1 Gm/Ns 200 Ml) 1 gm in 200 mls @ 133 mls/hr IVPB Q12H [facility]; Protocol Stop: 03/17/18 01:01 Last Admin: 03/12/18 01:00 Dose: 133 mls/hr Dextrose (Dextrose 5% In Water 1000 Ml) 1,000 mls @ 0 mls/hr IV .Q0M PRN; Protocol PRN Reason: Hypoglycemia Protocol Insulin Aspart (Novolog) 0 unit SC ACHS [facility]; Protocol Last Admin: 03/12/18 08:33 Dose: 2 u Multivitamins/Minerals (Therapeutic-M Tab) 1 tab PO 0800 [facility] Pantoprazole Sodium (Protonix Inj) 40 mg IVP Q12H [facility] Last Admin: 03/12/18 05:25 Dose: 40 mg Saccharomyces Boulardii (Florastor) 250 mg PO BID [facility] Last Admin: 03/12/18 09:35 Dose: 250 mg Tamsulosin HCl (Flomax) 0.4 mg PO DAILY [facility] Last Admin: 03/12/18 09:35 Dose: 0.4 mg - Labs Labs: 03/12/18 06:01 03/12/18 06:03 PT 10.7 SECONDS (9.7-12.2) 03/11/18 19:13 INR 1.0 03/11/18 19:13 APTT 44 SECONDS (21-34) H 03/11/18 19:13 - Respiratory Exam Respiratory Exam: Clear to Ausculation Bilateral - Cardiovascular Exam Cardiovascular Exam: RRR - GI/Abdominal Exam GI & Abdominal Exam: Soft, Normal Bowel Sounds. absent: Guarding, Tenderness, Mass, Rebound - Extremities Exam Extremities Exam: absent: Calf Tenderness - Neurological Exam Neurological Exam: Alert, Awake Assessment and Plan (1) Altered mental state Status: Acute (2) Anemia Assessment & Plan: No sign of bleeding. Stabilize other medical issues, and consider GI endoscopies in future. Status: Acute (3) Hypoglycemia Status: Acute (4) Diabetes mellitus, insulin dependent (IDDM), uncontrolled Status: Chronic (5) Obesity (BMI 30.0-34.9) Status: Chronic (6) Acute renal insufficiency Status: Resolved
--- NOTE | 2018-03-12 15:16 | CT ---
Date of service: 03/11/2018 PROCEDURE: CT Abdomen and Pelvis with contrast HISTORY: unintentional weight loss, anemia, change in stool COMPARISON: Lung bases from chest CT 02/25/2018. No prior abdomen pelvis CT available for comparison. TECHNIQUE: Following oral and intravenous contrast administration, a CT examination of the abdomen and pelvis performed from the domes of the diaphragms to the symphysis pubis with reformatted datasets provided not only axial but also sagittal and coronal series. Coronal and sagittal reformats were generated. contrast dose: Visipaque 320, 100 cc Radiation dose: Total exam DLP = 1180.61 mGy-cm. This CT exam was performed using one or more of the following dose reduction techniques: Automated exposure control, adjustment of the mA and/or kV according to patient size, and/or use of iterative reconstruction technique. FINDINGS: LOWER THORAX: Limited bibasilar dependent atelectasis is appreciated with underlying right lower lobe infiltrate not completely excluded. 4 x 6 mm nodule stable at the lingula. LIVER: Mildly diminished attenuation throughout the liver without mass or intrahepatic biliary duct dilatation. GALLBLADDER AND BILE DUCTS: Prior cholecystectomy reiterated. PANCREAS: Unremarkable. No gross lesion or ductal dilatation. SPLEEN: Unremarkable. ADRENALS: Unremarkable. No mass. KIDNEYS AND URETERS: Streaky perinephric changes are identified bilaterally though there is no obstructive uropathy appreciated this may be senescent. Clinically correlate for possible nephritis. Bilateral kidneys otherwise appear unremarkable. VASCULATURE: Nonaneurysmal abdominal aortic calcific atherosclerotic changes are identified. BOWEL: There is a nonobstructive bowel gas pattern identified. [id number] retained fecal material scattered throughout the large bowel without gross mural thickening appreciated. Rectal probe has been inserted. APPENDIX: Normal appendix. PERITONEUM: Tiny right umbilical hernia is appreciated containing only mesenteric fat. There also only fat containing inguinal hernias identified bilaterally. No free fluid. No free air. LYMPH NODES: Unremarkable. No enlarged lymph nodes. BLADDER: Unremarkable. REPRODUCTIVE: Mild prostate gland enlargement. BONES: No acute fracture. OTHER FINDINGS: None. IMPRESSION: 1. No visceral mass appreciated throughout the abdomen although the prostate gland is mildly enlarged with the pelvis otherwise unremarkable. 2. Nonspecific streaky perinephric changes bilaterally. No obstructive uropathy bilaterally. No discrete renal mass appreciated. 3. Hepatic steatosis. 4. Prior cholecystectomy. 5. Likely interval bilateral basilar atelectasis favored over infiltrates. Sub cm noncalcified solid nodule stable lingula.
--- NOTE | 2018-03-12 19:45 | CP.PCM.CON ---
History of Present Illness - History of Present Illness History of Present Illness: 67 year old male with a history of HTN, DM, TIA, admitted with hypothermia, hypoglycemia, sepsis and anemia. The patient denies blood problems in the past. He was found to have a hgb of 7 and is s/p PRBC transfusion. He does note to low blood sugars in the past which have caused him to lose consciousness. He denies weightloss and reports to eating well. Past medical history: HTN, DM, TIA. Past surgical history: Cholecystectomy Family history: Denies hematologic and oncologic problems Social history: Denies tobacco, alcohol, and illicit drug use. 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 Past Patient History - Infectious Disease Hx of Infectious Diseases: None - Tetanus Immunizations Tetanus Immunization: Unknown - Past Medical History & Family History Past Medical History?: Yes - Past Social History Smoking Status: Former Smoker - CARDIAC Hx Hypercholesterolemia: Yes Hx Hypertension: Yes - PULMONARY Hx Chronic Obstructive Pulmonary Disease (COPD): Yes - NEUROLOGICAL HX Cerebrovascular Accident: Yes (TIA) - HEENT Hx HEENT Problems: No - RENAL Hx Chronic Kidney Disease: No - ENDOCRINE/METABOLIC Hx Diabetes Mellitus Type 1: Yes - HEMATOLOGICAL/ONCOLOGICAL Hx Blood Disorders: No - INTEGUMENTARY Hx Dermatological Problems: No - MUSCULOSKELETAL/RHEUMATOLOGICAL Hx Musculoskeletal Disorders: Yes Hx Falls: Yes - GASTROINTESTINAL Hx Gastrointestinal Disorders: No - GENITOURINARY/GYNECOLOGICAL Hx Genitourinary Disorders: No - PSYCHIATRIC Hx Substance Use: No - SURGICAL HISTORY Hx Cholecystectomy: Yes - ANESTHESIA Hx Anesthesia: Yes Hx Anesthesia Reactions: No Hx Malignant Hyperthermia: No Meds Allergies/Adverse Reactions: Allergies Allergy/AdvReac Type Severity Reaction Status Date / Time No Known Allergies Allergy Verified 03/17/17 12:03 - Medications Medications: Current Medications Dextrose (Dextrose 50% Inj) 0 ml IV STAT PRN; Protocol PRN Reason: Hypoglycemia Protocol Dextrose (Glutose 15) 0 gm PO ONCE PRN; Protocol PRN Reason: Hypoglycemia Protocol Glipizide (Glucotrol) 10 mg PO ACBD [facility] Glucagon (Glucagen Diagnostic Kit) 0 mg IM STAT PRN; Protocol PRN Reason: Hypoglycemia Protocol Piperacillin Sod/Tazobactam Sod (Zosyn 3.375 Gm Iv Premix) 3.375 gm in 50 mls @ 50 mls/hr IVPB Q8H [facility]; Protocol Last Admin: 03/12/18 12:09 Dose: 50 mls/hr Vancomycin/Sodium Chloride (Vancomycin 1 Gm/Ns 200 Ml) 1 gm in 200 mls @ 133 mls/hr IVPB Q12H [facility]; Protocol Stop: 03/17/18 01:01 Last Admin: 03/12/18 12:10 Dose: 133 mls/hr Dextrose (Dextrose 5% In Water 1000 Ml) 1,000 mls @ 0 mls/hr IV .Q0M PRN; Protocol PRN Reason: Hypoglycemia Protocol Insulin Aspart (Novolog) 0 unit SC ACHS [facility]; Protocol Metformin HCl (Glucophage) 500 mg PO BID [facility] Last Admin: 03/12/18 17:29 Dose: 500 mg Multivitamins/Minerals (Therapeutic-M Tab) 1 tab PO 0800 [facility] Pantoprazole Sodium (Protonix Inj) 40 mg IVP Q12H [facility] Last Admin: 03/12/18 17:30 Dose: 40 mg Saccharomyces Boulardii (Florastor) 250 mg PO BID [facility] Last Admin: 03/12/18 17:30 Dose: 250 mg Tamsulosin HCl (Flomax) 0.4 mg PO DAILY [facility] Last Admin: 03/12/18 09:35 Dose: 0.4 mg Physical Exam - Head Exam Head Exam: ATRAUMATIC - Eye Exam Eye Exam: Normal appearance - ENT Exam ENT Exam: Mucous Membranes Dry - Respiratory Exam Respiratory Exam: NORMAL BREATHING PATTERN - Cardiovascular Exam Cardiovascular Exam: +S1, +S2 - GI/Abdominal Exam GI & Abdominal Exam: Normal Bowel Sounds - Extremities Exam Extremities exam: Positive for: normal inspection - Neurological Exam Neurological exam: Oriented x3 - Psychiatric Exam Psychiatric exam: Normal Affect, Normal Mood - Skin Skin Exam: Warm Results - Vital Signs Recent Vital Signs: Last Vital Signs Temp 99.7 F H 03/12/18 12:00 Pulse 87 03/12/18 18:00 Resp 18 03/12/18 08:00 BP 136/68 03/12/18 08:00 Pulse Ox 94 L 03/12/18 08:00 - Labs Result Diagrams: 03/12/18 06:01 03/12/18 06:03 Labs: Laboratory Results - last 24 hr 03/11/18 03/11/18 03/11/18 15:15 19:13 21:22 WBC RBC Hgb Hct MCV MCH MCHC RDW Plt Count MPV Neut % (Auto) Lymph % (Auto) Cass % (Auto) Eos % (Auto) Baso % (Auto) Neut # (Auto) Lymph # (Auto) Cass # (Auto) Eos # (Auto) Baso # (Auto) Neutrophils % (Manual) Band Neutrophils % Lymphocytes % (Manual) Monocytes % (Manual) Platelet Estimate RBC Morphology Sodium Potassium Chloride Carbon Dioxide Anion Gap BUN Creatinine Est GFR ( Amer) Est GFR (Non-Af Amer) POC Glucose (mg/dL) 223 H Random Glucose Hemoglobin A1c Lactic Acid Calcium Phosphorus Magnesium TIBC 285 % Saturation 25 Total Bilirubin AST ALT Alkaline Phosphatase Total Protein Albumin Globulin Albumin/Globulin Ratio Triglycerides Cholesterol LDL Cholesterol Direct HDL Cholesterol Mycoplasma pneumon IgM Negative 03/12/18 03/12/18 03/12/18 06:01 06:01 06:03 WBC 9.6 D RBC 3.55 L Hgb 10.8 L D Hct 31.5 L MCV 88.8 MCH 30.5 MCHC 34.3 RDW 13.9 Plt Count 312 D MPV 7.7 Neut % (Auto) 83.6 H Lymph % (Auto) 9.7 L Cass % (Auto) 6.4 Eos % (Auto) 0.1 Baso % (Auto) 0.2 Neut # (Auto) 8.1 H Lymph # (Auto) 0.9 L Cass # (Auto) 0.6 Eos # (Auto) 0.0 Baso # (Auto) 0.0 Neutrophils % (Manual) 85 H Band Neutrophils % 2 Lymphocytes % (Manual) 8 L Monocytes % (Manual) 5 Platelet Estimate Normal RBC Morphology Normal Sodium 135 Potassium 4.1 Chloride 103 Carbon Dioxide 21 L Anion Gap 15 BUN 19 Creatinine 0.9 Est GFR ( Amer) > 60 Est GFR (Non-Af Amer) > 60 POC Glucose (mg/dL) Random Glucose 225 H Hemoglobin A1c 8.6 H Lactic Acid Calcium 9.0 Phosphorus 3.5 Magnesium 1.4 L TIBC % Saturation Total Bilirubin 0.6 AST 28 ALT 29 Alkaline Phosphatase 72 Total Protein 7.0 Albumin 4.0 Globulin 3.0 Albumin/Globulin Ratio 1.3 Triglycerides 119 D Cholesterol 200 H LDL Cholesterol Direct 107 HDL Cholesterol 71 H Mycoplasma pneumon IgM 10/27/18 06:05 WBC RBC Hgb Hct MCV MCH MCHC RDW Plt Count MPV Neut % (Auto) Lymph % (Auto) Cass % (Auto) Eos % (Auto) Baso % (Auto) Neut # (Auto) Lymph # (Auto) Cass # (Auto) Eos # (Auto) Baso # (Auto) Neutrophils % (Manual) Band Neutrophils % Lymphocytes % (Manual) Monocytes % (Manual) Platelet Estimate RBC Morphology Sodium Potassium Chloride Carbon Dioxide Anion Gap BUN Creatinine Est GFR ( Amer) Est GFR (Non-Af Amer) POC Glucose (mg/dL) Random Glucose Hemoglobin A1c Lactic Acid 1.8 Calcium Phosphorus Magnesium TIBC % Saturation Total Bilirubin AST ALT Alkaline Phosphatase Total Protein Albumin Globulin Albumin/Globulin Ratio Triglycerides Cholesterol LDL Cholesterol Direct HDL Cholesterol Mycoplasma pneumon IgM Assessment & Plan (1) Anemia Assessment and Plan: work up consistent with hypoproliferative erythroid response low B12 - will supplement IM daily Thank you for this interesting consult. Status: Acute
[2018-03-13] MEDS: Vancomycin 1 gm/NS 200 ml 1 GM/200 ML BAG IVPB SCH ×2 (01:00→12:21)
[2018-03-13] MEDS: Piperacill/Tazo 3.375gm in Dex 3.375 GM/50 ML BAG IVPB SCH ×3 (04:38→20:59)
[2018-03-13 06:53] LABS: EOS # 0.1 K/uL (0.0-0.7); MEAN PLATELET VOLUME 7.7 fL (7.2-11.7); MONO # 0.6 K/uL (0.0-0.8)
[2018-03-13 07:02] LABS: ALB/GLOB RATIO 1.3 (1.0-2.1); ALBUMIN 3.6 g/dL (3.5-5.0); ALT/SGPT 40 U/L (21-72); AST/SGOT 37 U/L (17-59); BLOOD UREA NITROGEN 19 mg/dL (9-20); CALCIUM 8.7 mg/dl (8.6-10.4); GFR NON-AFRICAN AMERICAN > 60
[2018-03-13 07:07] LABS: BASO % 0.5 % (0.0-2.0); EOS % 1.7 % (0.0-4.0); HEMOGLOBIN 10.4 g/dL (12.0-18.0); LYMPH # 2.2 K/uL (1.0-4.3); LYMPH % 29.8 % (20.0-40.0); MEAN CELL VOLUME 89.7 fL (80.0-94.0); MEAN CORPUSCULAR HEMOGLOBIN 29.8 pg (27.0-31.0); MEAN CORPUSCULAR HGB CONC 33.2 g/dL (33.0-37.0); MONO % 8.2 % (0.0-10.0); NEUT # 4.5 K/uL (1.8-7.0); NEUT % 59.8 % (50.0-75.0); NRBC % 0.1 % (0.0-2.0); RBC 3.48 Mil/uL (4.40-5.90); RED CELL DISTRIBUTION WIDTH 13.8 % (11.5-14.5); WHITE BLOOD COUNT 7.5 K/uL (4.8-10.8)
[2018-03-13] MEDS: (Novolog) Insulin Aspart, Recombinant 100 u/ml 10 ml vial SC SCH ×4 (07:36→21:13)
[2018-03-13] MEDS: Multivitamin With Minerals Tab PO SCH (07:59)
--- NOTE | 2018-03-13 09:39 | CON ---
DATE: 03/12/2018 ENDOCRINOLOGY CONSULTATION LOCATION: In ICU, room 4. HISTORY OF PRESENT ILLNESS: This is a 67-year-old male with known history of type 2 insulin-requiring diabetes on a combination of Levemir given as 10 units once daily with glipizide given as 10 mg b.i.d. and was apparently found by a friend to have altered mental status with supervening brief loss of consciousness and was brought in by the friend to the emergency room for further evaluation and management. He apparently had a markedly low blood sugar of 20 mg per dL and was given D50 bolus injections in the emergency room and is now being referred for diabetic evaluation and management. PAST MEDICAL HISTORY: As mentioned above, history of type 2 insulin-requiring diabetes on the combination of basal insulin with 10 units given once daily and glipizide given as 10 mg b.i.d., history of hypertension and dyslipidemia, history of previous cerebrovascular event with TIA with no residual weakness, history of diffuse osteoarthritis on no medications at this time. 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 He is a previous smoker, but has quit some months ago. He has a supportive family and friends, and his primary physician is Dr. Valentine Patel. REVIEW OF SYSTEMS: Not possible at this time, but as per the friend, he has had recent episodic bouts of dizziness and lightheadedness with bifrontal headaches and visual blurring. Also admits to episodic bouts of generalized body weakness with hypersomnolence and lethargy. No chest pain, palpations, or PNDs. His oral intake has been variable with nausea and dyspepsia as noted. No recent alterations of bowel and urinary patterns. He also admits to recent weight loss as noted. PHYSICAL EXAMINATION GENERAL: This is an average built male, in no apparent distress. VITAL SIGNS: Blood pressure of 144/80, pulse of 100 beats per minute and regular, temperature 99, and respirations 20. Height is 5 feet 7 inches, weight is 203 pounds. HEENT: Head normocephalic. Eyes anicteric with pink conjunctivae. Funduscopy is not possible at this time. Ears, nose, and throat otherwise normal. NECK: Supple. Thyroid gland is normal in size. No carotid bruits or cervical adenopathy. CARDIOPULMONARY: Some adynamic precordium. S1 and S2 are rapid and regular. LUNGS: Clear to auscultation. ABDOMEN: Flat, soft with positive bowel sounds. EXTREMITIES: No peripheral edema. Pulses are +2 bilaterally. LABORATORY DATA: The initial finger-stick glucose was less than 20, done twice, and the initial chemistry showed a BUN of 28, sodium 140, potassium 4.4, chloride 102, CO2 of 20, glucose 23, and creatinine 0.9. His glucose values have ranged from 62 down to 41 and now is 155 mg per dL. His hemoglobin A1c is 8.7%. The latest glucose now is 223 mg per dL. 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 PLAN OF MANAGEMENT: the patient's bedside. We will start him on the very low dose correction scale using NovoLog insulin as ordered and observe his glycemic fluctuations thereof. If fasting hyperglycemic levels supervene, then we can start him back on the much lower basal insulin at bedtime to be given as indicated. If glucose levels remain near optimal, then we will start him only on the combination of oral hypoglycemic therapy without the need for basal insulin or a premixed insulin regimen accordingly. We will follow. Birdie Quiñones MD
--- NOTE | 2018-03-13 10:40 | CP.PCM.PN ---
Subjective - Date & Time of Evaluation Date of Evaluation: 03/13/18 Time of Evaluation: 10:30 - Subjective Subjective: f/u anemia. Denies CP, sob, fever, chills, TAM, cough, RB, melena, hematemesis The Hb of 7 on admission was likley likely err0r- Hb is stable at 10 with NO transfusions. Objective - Vital Signs/Intake and Output Vital Signs (last 24 hours): Temp Pulse Resp BP Pulse Ox 98 F 84 20 136/68 95 03/13/18 07:43 03/13/18 07:43 03/13/18 07:43 03/12/18 08:00 03/13/18 07:43 Intake and Output: 03/13/18 03/13/18 06:59 18:59 Intake Total 780 120 Output Total 1200 350 Balance -420 -230 - Medications Medications: Current Medications Cyanocobalamin (Vitamin B12 1000 Mcg/Ml Inj) 1,000 mcg IM DAILY [facility] Dextrose (Dextrose 50% Inj) 0 ml IV STAT PRN; Protocol PRN Reason: Hypoglycemia Protocol Dextrose (Glutose 15) 0 gm PO ONCE PRN; Protocol PRN Reason: Hypoglycemia Protocol Glipizide (Glucotrol) 10 mg PO ACBD [facility] Last Admin: 03/13/18 07:59 Dose: 10 mg Glucagon (Glucagen Diagnostic Kit) 0 mg IM STAT PRN; Protocol PRN Reason: Hypoglycemia Protocol Piperacillin Sod/Tazobactam Sod (Zosyn 3.375 Gm Iv Premix) 3.375 gm in 50 mls @ 50 mls/hr IVPB Q8H [facility]; Protocol Last Admin: 03/13/18 04:38 Dose: 50 mls/hr Vancomycin/Sodium Chloride (Vancomycin 1 Gm/Ns 200 Ml) 1 gm in 200 mls @ 133 mls/hr IVPB Q12H [facility]; Protocol Stop: 03/17/18 01:01 Last Admin: 03/13/18 01:00 Dose: 133 mls/hr Dextrose (Dextrose 5% In Water 1000 Ml) 1,000 mls @ 0 mls/hr IV .Q0M PRN; P rotocol PRN Reason: Hypoglycemia Protocol Insulin Aspart (Novolog) 0 unit SC ACHS [facility]; Protocol Last Admin: 03/13/18 07:36 Dose: Not Given Metformin HCl (Glucophage) 500 mg PO BID [facility] Last Admin: 03/12/18 17:29 Dose: 500 mg Multivitamins/Minerals (Therapeutic-M Tab) 1 tab PO 0800 [facility] Last Admin: 03/13/18 07:59 Dose: 1 tab Pantoprazole Sodium (Protonix Inj) 40 mg IVP Q12H [facility] Last Admin: 03/13/18 06:00 Dose: 40 mg Saccharomyces Boulardii (Florastor) 250 mg PO BID [facility] Last Admin: 03/12/18 17:30 Dose: 250 mg Tamsulosin HCl (Flomax) 0.4 mg PO DAILY [facility] Last Admin: 03/12/18 09:35 Dose: 0.4 mg - Labs Labs: 03/13/18 06:43 03/13/18 06:43 PT 10.7 SECONDS (9.7-12.2) 03/11/18 19:13 INR 1.0 03/11/18 19:13 APTT 44 SECONDS (21-34) H 03/11/18 19:13 - Constitutional Appears: Well - Neck Exam Neck Exam: absent: Tenderness - Respiratory Exam Respiratory Exam: Clear to Ausculation Bilateral - Cardiovascular Exam Cardiovascular Exam: RRR - GI/Abdominal Exam GI & Abdominal Exam: Soft, Normal Bowel Sounds. absent: Guarding, Tenderness, Mass, Rebound - Extremities Exam Extremities Exam: absent: Calf Tenderness - Neurological Exam Neurological Exam: Alert, Awake, Oriented x3 Assessment and Plan (1) Altered mental state Assessment & Plan: Improving. Due to low gluc and hypothermia Status: Acute (2) Anemia Assessment & Plan: Hb is stable at 10. OB neg. Can do routine GI work-up as outpatient such as colonosocpy. I told patient to come to office to arrange this after discharge. Status: Acute (3) Hypoglycemia Status: Acute (4) Diabetes mellitus, insulin dependent (IDDM), uncontrolled Status: Chronic (5) Obesity (BMI 30.0-34.9) Status: Chronic
[2018-03-13] MEDS: Saccharomyces Boulardi 250 mg Cap PO SCH ×2 (12:20→17:17)
--- NOTE | 2018-03-13 14:34 | PCM.PSYCH ---
Initial Psychiatric Evaluation - Initial Psychiatric Evaluation Type of Admission: Voluntary Legal Status: Capacity Chief Complaint (in patient's own words): "I was depressed" History of Present Illness and Precipitating Events: The pt is seen, chart reviewed case discussed Consult was asked for his depressive sxs. 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 The pt reported depressive sxs and being on "an antidepressant" but doesn't recall name and admits to using on and off. He c/o loneliness and "bad insomnia." He insinuated he had suicidal thoughts but now he claims he didn't understand the questions and that he would never hurt himself. He is future-oriented and contracts for safety. Has a psychiatrist and is willing to take meds and see him His is coming soon and one son is in [place] No tani or psychosis No alcohol or drug use Past psych: No attempts, no admissions Medical: DM , HTN, BPH Family psych hx: Denies Current Medications: Active Medications Generic Name Dose Route Start Last Admin Trade Name Freq PRN Reason Stop Dose Admin Cyanocobalamin 1,000 mcg 03/13/18 10:00 03/13/18 12:21 Vitamin B12 1000 Mcg/Ml Inj IM 1,000 mcg DAILY [facility] Administration Dextrose 0 ml 03/11/18 17:49 Dextrose 50% Inj IV STAT PRN Hypoglycemia Protocol Protocol Dextrose 0 gm 03/11/18 17:49 Glutose 15 PO ONCE PRN Hypoglycemia Protocol Protocol Glipizide 10 mg 03/13/18 07:30 03/13/18 07:59 Glucotrol PO 10 mg ACBD [facility] Administration Glucagon 0 mg 03/11/18 17:49 Glucagen Diagnostic Kit IM STAT PRN Hypoglycemia Protocol Protocol Piperacillin Sod/Tazobactam Sod 3.375 gm in 50 mls @ 50 mls/hr 03/11/18 21:00 03/13/18 12:21 Zosyn 3.375 Gm Iv Premix IVPB 50 mls/hr Q8H [facility] Administration Protocol Vancomycin/Sodium Chloride 1 gm in 200 mls @ 133 mls/hr 03/12/18 01:00 03/13/18 12:21 Vancomycin 1 Gm/Ns 200 Ml IVPB 03/17/18 01:01 133 mls/hr Q12H [facility] Administration Protocol Dextrose 1,000 mls @ 0 mls/hr 03/11/18 17:49 Dextrose 5% In Water 1000 Ml IV .Q0M PRN Hypoglycemia Protocol Protocol Per Protocol Insulin Aspart 0 unit 03/12/18 22:00 03/13/18 11:55 Novolog SC Not Given ACHS [facility] Protocol Metformin HCl 500 mg 03/12/18 18:00 03/13/18 12:20 Glucophage PO 500 mg BID [facility] Administration Multivitamins/Minerals 1 tab 03/13/18 08:00 03/13/18 07:59 Therapeutic-M Tab PO 1 tab 0800 [facility] Administration Pantoprazole Sodium 40 mg 03/11/18 18:00 03/13/18 06:00 Protonix Inj IVP 40 mg Q12H [facility] Administration Saccharomyces Boulardii 250 mg 03/12/18 10:00 03/13/18 12:20 Florastor PO 250 mg BID [facility] Administration Tamsulosin HCl 0.4 mg 03/12/18 10:00 03/13/18 12:20 Flomax PO 0.4 mg DAILY [facility] Administration Past Psychiatric History - Past Psychiatric History Previous Treatment History: Intensive Outpatient Pertinent Medical Hx (Current Medical&Sleep Prob, Allergies): Allergies Allergy/AdvReac Type Severity Reaction Status Date / Time No Known Allergies Allergy Verified 03/17/17 12:03 Escitalopram [Lexapro] 10 mg PO DAILY 02/24/18 Fenofibrate 160 mg PO DAILY 02/24/18 Gabapentin [Neurontin] 300 mg PO DAILY 02/24/18 Glipizide [Glipizide ER] 10 mg PO BIDAC 02/24/18 Omeprazole 20 mg PO DAILY 02/24/18 Tamsulosin [Flomax] 0.4 mg PO DAILY 02/24/18 hydrOXYzine HCl [Atarax] 25 mg PO DAILY 02/24/18 Compress.stocking,Knee,Reg,Lrg [Truform Compression Stocking] 1 each MC DAILY #1 each 03/01/18 Insulin Detemir [Levemir] 10 unit SC ACB 30 Days unit 03/01/18 Review of Systems - Psychiatric Psychiatric: Abnormal Sleep Pattern, Anhedonia, Anxiety, Depression, Difficulty Concentrating. absent: Hallucinations, Homicidal Ideation, Hopelessness, Paranoia, Suicidal Ideation Mental Status Examination - Personal Presentation Personal Presentation: Looks stated age - Affect Affect: Broad - Motor Activity Motor Activity: Calm - Reliability in Providing Information Reliability in Providing Information: Good - Speech Speech: Organized - Mood Mood: Depressed, Anxious - Formal Thought Process Formal Thought Process: No Impairment - Cognitive Functions Orientation: Person, Place, Situation, Time Sensorium: Alert Attention/Concentration: Easily distracted Estimate of Intelligence: Average Judgement: Intact, as evidence by: Insight regarding need for hospitalization Memory: Recent intact, as evidence by: Ability to recall events of the day, Remote intact, as evidenced by: Abilit to recall sig. life events - Risk Risk: Diminished functioning - Strength & Assets Inventory Strength & Assets Inventory: Family support, Employment history, Life experience - Limitations Limitations: Living alone DSM 5 DX - DSM 5 DSM 5 Diagnosis: Major depressive d/o - single, severe, w/o psychosis - Recommended/Plan of Treatment Treatment Recommendations and Plan of Treatment: Lexapro 5 mg for depression Trazodone 50 mg hs for insomnia Support and psycho-ed provided Contact his son Refer to outpt psychiatry No need for 1:1 at this point 32 min
--- NOTE | 2018-03-13 14:48 | CP.PCM.PN ---
Subjective - Date & Time of Evaluation Date of Evaluation: 03/13/18 Time of Evaluation: 13:00 - Subjective Subjective: Medical Attending Note: Patient seen and examined. Patient seen this afternoon. Patient admitted to the resident that he purposely tried to harmself with insulin. He reports he is depressed used to take pills f or it but cannot remember the name. Denies chest pain, denies palpitations, denies abdominal pain, denies nausea, denies vomitting, reports he had a bowel movement. Patient transferred out of the ICU yesterday. Objective - Vital Signs/Intake and Output Vital Signs (last 24 hours): Temp Pulse Resp BP Pulse Ox 98 F 84 20 136/68 95 03/13/18 07:43 03/13/18 07:43 03/13/18 07:43 03/12/18 08:00 03/13/18 07:43 Intake and Output: 03/13/18 03/13/18 06:59 18:59 Intake Total 780 670 Output Total 1200 350 Balance -420 320 - Medications Medications: Current Medications Cyanocobalamin (Vitamin B12 1000 Mcg/Ml Inj) 1,000 mcg IM DAILY [facility] Last Admin: 03/13/18 12:21 Dose: 1,000 mcg Dextrose (Dextrose 50% Inj) 0 ml IV STAT PRN; Protocol PRN Reason: Hypoglycemia Protocol Dextrose (Glutose 15) 0 gm PO ONCE PRN; Protocol PRN Reason: Hypoglycemia Protocol Escitalopram Oxalate (Lexapro) 5 mg PO DAILY [facility] Glipizide (Glucotrol) 10 mg PO ACBD [facility] Last Admin: 03/13/18 07:59 Dose: 10 mg Glucagon (Glucagen Diagnostic Kit) 0 mg IM STAT PRN; Protocol PRN Reason: Hypoglycemia Protocol Piperacillin Sod/Tazobactam Sod (Zosyn 3.375 Gm Iv Premix) 3.375 gm in 50 mls @ 50 mls/hr IVPB Q8H [facility]; Protocol Last Admin: 03/13/18 12:21 Dose: 50 mls/hr Vancomycin/Sodium Chloride (Vancomycin 1 Gm/Ns 200 Ml) 1 gm in 200 mls @ 133 ml s/hr IVPB Q12H [facility]; Protocol Stop: 03/17/18 01:01 Last Admin: 03/13/18 12:21 Dose: 133 mls/hr Dextrose (Dextrose 5% In Water 1000 Ml) 1,000 mls @ 0 mls/hr IV .Q0M PRN; Protocol PRN Reason: Hypoglycemia Protocol Insulin Aspart (Novolog) 0 unit SC ACHS [facility]; Protocol Last Admin: 03/13/18 11:55 Dose: Not Given Metformin HCl (Glucophage) 500 mg PO BID [facility] Last Admin: 03/13/18 12:20 Dose: 500 mg Multivitamins/Minerals (Therapeutic-M Tab) 1 tab PO 0800 [facility] Last Admin: 03/13/18 07:59 Dose: 1 tab Pantoprazole Sodium (Protonix Inj) 40 mg IVP Q12H [facility] Last Admin: 03/13/18 06:00 Dose: 40 mg Saccharomyces Boulardii (Florastor) 250 mg PO BID [facility] Last Admin: 03/13/18 12:20 Dose: 250 mg Tamsulosin HCl (Flomax) 0.4 mg PO DAILY [facility] Last Admin: 03/13/18 12:20 Dose: 0.4 mg Trazodone HCl (Desyrel) 50 mg PO HS PRN PRN Reason: Insomnia - Labs Labs: 03/13/18 06:43 03/13/18 06:43 PT 10.7 SECONDS (9.7-12.2) 03/11/18 19:13 INR 1.0 03/11/18 19:13 APTT 44 SECONDS (21-34) H 03/11/18 19:13 - Constitutional Appears: Non-toxic, No Acute Distress - Head Exam Head Exam: NORMAL INSPECTION - Eye Exam Eye Exam: EOMI, PERRL - ENT Exam ENT Exam: Mucous Membranes Moist - Respiratory Exam Respiratory Exam: Clear to Ausculation Bilateral, NORMAL BREATHING PATTERN. absent: Rales, Rhonchi, Wheezes - Cardiovascular Exam Cardiovascular Exam: REGULAR RHYTHM, +S1, +S2 - GI/Abdominal Exam GI & Abdominal Exam: Soft, Normal Bowel Sounds. absent: Distended, Firm, Guarding, Rigid, Tenderness, Rebound - Extremities Exam Extremities Exam: absent: Pedal Edema, Tenderness - Neurological Exam Neurological Exam: Alert, Awake, Oriented x3 - Psychiatric Exam Psychiatric exam: Depressed - Skin Skin Exam: Dry, Intact, Normal Color, Warm Assessment and Plan (1) Anemia Status: Acute (2) Altered mental state Status: Acute (3) Hypoglycemia Status: Acute (4) Difficulty walking Status: Acute (5) Obesity (BMI 30.0-34.9) Status: Chronic (6) Prophylactic measure Status: Acute Attending/Attestation - Attestation I have personally seen and examined this patient.: Yes I have fully participated in the care of the patient.: Yes I have reviewed all pertinent clinical information, including history, physical exam and plan: Yes Notes (Text): Patient seen, examined and case discussed with patient. Since last admission, patient reports he was taking his medications though he was instructed not to. Patient reports he was taking Lantus 25 units, parked, had called his friend who discovered him and brought him to the ER. Patient also reports he was noncompliant and didnt purchase the stalkings needed to keep his blood pressure up. Resident Carolyn López spoke with him this morning; He admitted to her that he was trying to harmself with lantus. When I saw him, he admitted he was quite depressed but could not remember the names of anti-depression medications. We have placed psych consult and 1:1 on him I did speak with his nurse to place venodynes on the patient given history of orthostatsis. Physical/occupational therapy reconsulted. F/u with infectious disease. Discharge planning: pending psych evaluation/pt/ot. f/u cultures to determine when to stop antibiotics. Assessment/Plan 1) Hypothermia Assessment/Plan * Concern for sepsis * Criteria: hypothermia, elevated lactate acid * Repeat lactate acid is downtrending * In the ED, patient received first dose of Zosyn and Vancomycin * Blood cultures (03/11/18): pending * Urine culture (03/11/18): pending * Pending procalcitonin * Infectious Disease (Dr. Merida) on consult * CT Head (03/11/18): no acute intracranial abnormality 2. Acute Anemia Assessment/Plan * Change in hemoglobin from 11-->7 (02/28 to 03/11) * Patient denies BRBPBR, denies black stool * Type and screen completed * GI (Dr. Briones) contracting officer-->help appreciated * Hematology (Dr. Magali Terry) contracting officer-->help appreciated * heme-occult negative * Reticulocyte count: 0.50 hypoproliferation * Ferritin: 121. * Iron, TIBC, iron saturation pending 3. Hypoglycemia Assessment/Plan * Patient is diabetic; unclear if related to medications or sepsis * CT Head (03/11/18): no acute intracranial abnormality * Accuchecks QAC and HS * Patient 2 doses of D50 ampules. Decadron 10mg IVP X1 4. Dizziness Assessment/Plan * Patient had recent admission past 2 weeks: * Cardiac workup: underwent tilt table: no reproducible, presyncope, dizzin ess. No Arrythmias, No cardioinhibitory response. Per cardio note: Findings of BP reduction from baseline of 148/78 --> 113/64 with appropriate HR variation are suggestive of mild orthostasis for which compression stockings, healthy hydration would be beneficial. * Neuro workup: pending outpatient MRA; prior EEG negative * CT Head (03/11/18): no acute intracranial abnormality 5. History of Prior Acute Renal Failure Assessment/Plan * Renal function last admission: 2.7; normalized upon d/c recommending to stop arb/hctz * Renal function normalized * Patient is off anti-hypertensives 6. History of Hypertension Assessment/Plan * off anti-hypertensives * Patient is normotensive now * echocardiogram (03/03): mild concentric left ventricular hypertrophy, left ventricle systolic function is normal, EF: 65-70%, mild pulmonary hypertension 7. History of Mild Orthostasis Assessment/Plan * Cardiac workup: underwent tilt table: no reproducible, presyncope, dizziness. No Arrythmias, No cardioinhibitory response. Per cardio note: Findings of BP reduction from baseline of 148/78 --> 113/64 with appropriate HR variation are suggestive of mild orthostasis for which compression stockings, healthy hydration would be beneficial. 8. History of Prior CVA Assessment/Plan * a1c: 8.7 lipid panel * Anti-hypertensives held * Aspirin held secondary to acute anemia 9. Altered mental status Assessment/Plan * possible secondary to hypoglycemic * TSH normal * Cortisol: elevated * rule out infection * CT head is negative * recent MRI (02/24/18): no acute intracranial abnormality. Mild chronic m icroangiopathic changes and moderate age-related global parenchymal volume loss 10. History of Ascending Aorta Assessment/Plan * Ascending aorta 4.1 X4.3cm. Maximum diameter of descending aorta 3.4 X3.5cm. Aortic calcifcations identified, unchanged compared to the prior study. pulmonary vascular congestion. No cardiac abnormalities nor is there is evidence of pericardial effusion. No vascular congestion. No lymphadenopathy 11. Prophylactic measure * Contraindications VTE ppx secondary to acute drop in hemoglobin; risk of bleeding * Protonix 40mg IV Q12H * Fall precautions * Neurochecks Q4H * Aspiration precautions * Seizure precautions * PT/OT Eval
--- NOTE | 2018-03-13 16:40 | CP.PCM.PN ---
Subjective - Date & Time of Evaluation Date of Evaluation: 03/13/18 Time of Evaluation: 08:00 - Subjective Subjective: events noted Hypoglycemia secondary to Insulin all cultures neg OK to d/c IV antibiotics Objective - Vital Signs/Intake and Output Vital Signs (last 24 hours): Temp Pulse Resp BP Pulse Ox 97.4 F L 87 22 144/77 97 03/13/18 15:43 03/13/18 16:10 03/13/18 15:43 03/13/18 12:00 03/13/18 15:43 Intake and Output: 03/13/18 03/13/18 06:59 18:59 Intake Total 780 780 Output Total 1200 850 Balance -420 -70 - Medications Medications: Current Medications Cyanocobalamin (Vitamin B12 1000 Mcg/Ml Inj) 1,000 mcg IM DAILY [facility] Last Admin: 03/13/18 12:21 Dose: 1,000 mcg Dextrose (Dextrose 50% Inj) 0 ml IV STAT PRN; Protocol PRN Reason: Hypoglycemia Protocol Dextrose (Glutose 15) 0 gm PO ONCE PRN; Protocol PRN Reason: Hypoglycemia Protocol Escitalopram Oxalate (Lexapro) 5 mg PO DAILY [facility] Last Admin: 03/13/18 16:17 Dose: 5 mg Glipizide (Glucotrol) 10 mg PO ACBD [facility] Last Admin: 03/13/18 16:17 Dose: 10 mg Glucagon (Glucagen Diagnostic Kit) 0 mg IM STAT PRN; Protocol PRN Reason: Hypoglycemia Protocol Piperacillin Sod/Tazobactam Sod (Zosyn 3.375 Gm Iv Premix) 3.375 gm in 50 mls @ 50 mls/hr IVPB Q8H [facility]; Protocol Last Admin: 03/13/18 12:21 Dose: 50 mls/hr Vancomycin/Sodium Chloride (Vancomycin 1 Gm/Ns 200 Ml) 1 gm in 200 mls @ 133 mls/hr IVPB Q12H [facility]ICK; Protocol Stop: 03/17/18 01:01 Last Admin: 03/13/18 12:21 Dose: 133 mls/hr Dextrose (Dextrose 5% In Water 1000 Ml) 1,000 mls @ 0 mls/hr IV .Q0M PRN; Protocol PRN Reason: Hypoglycemia Protocol Insulin Aspart (Novolog) 0 unit SC ACHS [facility]; Protocol Last Admin: 03/13/18 16:08 Dose: Not Given Metformin HCl (Glucophage) 500 mg PO BID [facility] Last Admin: 03/13/18 12:20 Dose: 500 mg Multivitamins/Minerals (Therapeutic-M Tab) 1 tab PO 0800 [facility] Last Admin: 03/13/18 07:59 Dose: 1 tab Pantoprazole Sodium (Protonix Inj) 40 mg IVP Q12H [facility] Last Admin: 03/13/18 06:00 Dose: 40 mg Saccharomyces Boulardii (Florastor) 250 mg PO BID [facility] Last Admin: 03/13/18 12:20 Dose: 250 mg Tamsulosin HCl (Flomax) 0.4 mg PO DAILY [facility] Last Admin: 03/13/18 12:20 Dose: 0.4 mg Trazodone HCl (Desyrel) 50 mg PO HS PRN PRN Reason: Insomnia - Labs Labs: 03/13/18 06:43 03/13/18 06:43 PT 10.7 SECONDS (9.7-12.2) 03/11/18 19:13 INR 1.0 03/11/18 19:13 APTT 44 SECONDS (21-34) H 03/11/18 19:13 - Constitutional Appears: Non-toxic, Chronically Ill - Head Exam Head Exam: NORMOCEPHALIC - Eye Exam Eye Exam: PERRL - ENT Exam ENT Exam: Mucous Membranes Dry - Neck Exam Neck Exam: absent: Lymphadenopathy - Respiratory Exam Respiratory Exam: Decreased Breath Sounds - Cardiovascular Exam Cardiovascular Exam: REGULAR RHYTHM - GI/Abdominal Exam GI & Abdominal Exam: Distended - Rectal Exam Rectal Exam: Deferred Assessment and Plan - Assessment and Plan (Free Text) Assessment: events noted Hypoglycemia secondary to Insulin all cultures neg OK to d/c IV antibiotics
[2018-03-13] MEDS ORDERED: Pantoprazole 40 mg EC Tab PO SCH (19:00)
--- NOTE | 2018-03-13 21:25 | PN ---
DATE: 03/13/2018 ENDOCRINOLOGY FOLLOWUP NOTE LOCATION: ICU room 4. SUBJECTIVE: This is a 67-year-old male, presenting here with marked symptomatic hypoglycemia and associated neuroglycopenic and hyperadrenergic manifestations of the same and is now being followed closely for metabolic management. 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 His oral intake is variable, but improved. LABORATORY DATA: The latest chemistries today showed a BUN of 19, sodium 139, potassium 3.8, chloride 104, CO2 of 24, glucose 151, creatinine 1. His hemoglobin is A1c is 8.5%, which is elevated and indicative of suboptimal metabolic control with diabetic condition even prior to this admission. ASSESSMENT: This is a 67-year-old male with symptomatic hypoglycemia, the factors of which have to be determined at this time whether it was nutritional versus medication induced and/or underlying neurologic event as noted. PLAN OF MANAGEMENT: We will continue the dual oral hypoglycemic therapy as given to allow for dose equilibration and keep him on the metformin given as 500 mg b.i.d. and glipizide given as 10 mg b.i.d. before meals as ordered. We will obtain serial chemistries and supplement accordingly as needed. We will also continue the D5. Serial chemistries to be obtained accordingly. We will follow and advise accordingly. Birdie Quiñones MD
[2018-03-14] MEDS: Piperacill/Tazo 3.375gm in Dex 3.375 GM/50 ML BAG IVPB SCH (05:30)
[2018-03-14 06:05] LABS: BASO % 0.6 % (0.0-2.0); EOS # 0.1 K/uL (0.0-0.7); EOS % 1.7 % (0.0-4.0); HEMOGLOBIN 11.1 g/dL (12.0-18.0); LYMPH % 26.9 % (20.0-40.0); MEAN CELL VOLUME 89.6 fL (80.0-94.0); MEAN CORPUSCULAR HEMOGLOBIN 29.9 pg (27.0-31.0); MEAN CORPUSCULAR HGB CONC 33.4 g/dL (33.0-37.0); MEAN PLATELET VOLUME 7.7 fL (7.2-11.7); MONO # 0.6 K/uL (0.0-0.8); MONO % 8.5 % (0.0-10.0); NEUT # 4.7 K/uL (1.8-7.0); NEUT % 62.3 % (50.0-75.0); NRBC % 0.1 % (0.0-2.0); RBC 3.71 Mil/uL (4.40-5.90); RED CELL DISTRIBUTION WIDTH 13.7 % (11.5-14.5); WHITE BLOOD COUNT 7.6 K/uL (4.8-10.8)
[2018-03-14 06:37] LABS: ALB/GLOB RATIO 1.3 (1.0-2.1); ALBUMIN 3.7 g/dL (3.5-5.0); ALT/SGPT 52 U/L (21-72); AST/SGOT 46 U/L (17-59); BLOOD UREA NITROGEN 18 mg/dL (9-20); CALCIUM 8.6 mg/dl (8.6-10.4); GFR NON-AFRICAN AMERICAN > 60
[2018-03-14 06:49] VITALS: RESP 20
[2018-03-14] MEDS: (Novolog) Insulin Aspart, Recombinant 100 u/ml 10 ml vial SC SCH ×4 (07:53→21:03)
[2018-03-14] MEDS: Multivitamin With Minerals Tab PO SCH (08:16)
[2018-03-14] MEDS: Saccharomyces Boulardi 250 mg Cap PO SCH ×2 (10:17→17:24)
--- NOTE | 2018-03-14 11:45 | CP.PCM.PN ---
Subjective - Date & Time of Evaluation Date of Evaluation: 03/14/18 Time of Evaluation: 11:35 - Subjective Subjective: Progress note. Attending: Dr. Ochoa ( covering for Dr. Xie) Pt seen and examined at bedside. No acute distress. No fevers, chills, vomiting, diarrhea, chest pain, shortness of breath. Patient currently denies homicidal/mccormack icidal ideation. GI wants to evaluate outpatient. HGB stable and 1:1 has been canceled. Objective - Vital Signs/Intake and Output Vital Signs (last 24 hours): Temp Pulse Resp BP Pulse Ox 97.5 F L 85 20 151/83 H 96 03/14/18 07:00 03/14/18 07:00 03/14/18 07:00 03/14/18 07:00 03/14/18 07:00 Intake and Output: 03/14/18 03/14/18 06:59 18:59 Intake Total 400 Output Total 1250 Balance -850 - Medications Medications: Current Medications Cyanocobalamin (Vitamin B12 1000 Mcg/Ml Inj) 1,000 mcg IM DAILY [facility] Last Admin: 03/14/18 10:18 Dose: 1,000 mcg Dextrose (Dextrose 50% Inj) 0 ml IV STAT PRN; Protocol PRN Reason: Hypoglycemia Protocol Dextrose (Glutose 15) 0 gm PO ONCE PRN; Protocol PRN Reason: Hypoglycemia Protocol Escitalopram Oxalate (Lexapro) 5 mg PO DAILY [facility] Last Admin: 03/14/18 11:10 Dose: Not Given Glipizide (Glucotrol) 10 mg PO ACBD [facility] Last Admin: 03/14/18 08:16 Dose: 10 mg Glucagon (Glucagen Diagnostic Kit) 0 mg IM STAT PRN; Protocol PRN Reason: Hypoglycemia Protocol Dextrose (Dextrose 5% In Water 1000 Ml) 1,000 mls @ 0 mls/hr IV .Q0M PRN; Protocol PRN Reason: Hypoglycemia Protocol Insulin Aspart (Novolog) 0 unit SC ACHS [facility]; Protocol Last Admin: 03/14/18 11:11 Dose: Not Given Metformin HCl (Glucophage) 500 mg PO BID [facility] Last Admin: 03/14/18 10:17 Dose: Not Given Multivitamins/Minerals (Therapeutic-M Tab) 1 tab PO 0800 [facility] Last Admin: 03/14/18 08:16 Dose: 1 tab Pantoprazole Sodium (Protonix Ec Tab) 40 mg PO Q12H [facility] Saccharomyces Boulardii (Florastor) 250 mg PO BID [facility] Last Admin: 03/14/18 10:17 Dose: 250 mg Tamsulosin HCl (Flomax) 0.4 mg PO DAILY [facility] Last Admin: 03/14/18 10:17 Dose: 0.4 mg Trazodone HCl (Desyrel) 50 mg PO HS PRN PRN Reason: Insomnia - Labs Labs: 03/14/18 05:56 03/14/18 05:56 PT 10.7 SECONDS (9.7-12.2) 03/11/18 19:13 INR 1.0 03/11/18 19:13 APTT 44 SECONDS (21-34) H 03/11/18 19:13 - Constitutional Appears: Non-toxic, No Acute Distress - Head Exam Head Exam: ATRAUMATIC, NORMAL INSPECTION, NORMOCEPHALIC - Eye Exam Eye Exam: EOMI - ENT Exam ENT Exam: Mucous Membranes Moist - Neck Exam Neck Exam: Full ROM, Normal Inspection - Respiratory Exam Respiratory Exam: absent: Respiratory Distress - Cardiovascular Exam Cardiovascular Exam: +S1, +S2 - GI/Abdominal Exam GI & Abdominal Exam: Soft, Normal Bowel Sounds. absent: Tenderness - Extremities Exam Extremities Exam: Full ROM - Back Exam Back Exam: NORMAL INSPECTION - Neurological Exam Neurological Exam: Alert, Awake, Oriented x3 - Psychiatric Exam Psychiatric exam: Normal Affect, Normal Mood - Skin Skin Exam: Dry, Intact, Normal Color, Warm Assessment and Plan - Assessment and Plan (Free Text) Assessment: This is a 67 yo male with 1. Altered mental status -pt was initially hypothermic and hypoglycemic -resolved. -endocrine consult. Dr. Quiñones. recs appreciated. -psych consult. Dr. Mitchell. recs appreciated. -head ct negative -MRI - no acute intracranial abnormality -prior EEG negative -PT/OT -urine culture negative -blood culture x 1 negative -blood culture x 1 gram positive cocci -ID consult. recs appreciated. Dr. Merida -antibiotics may be discontinued 2. Acute drop in HGB -GI consult. Dr. Briones. recs appreciated. -GI notes anemia was likely error and wants to evaluate as outpatient -stool occult blood negative -retic count 2.0 3. hx of DM -ISS -hypoglycemia protocol -glipizide 10 PO ACBD -metformin 500 bid -endocrine consult as above. recs appreciated. -HGB a1C 8.5 4. hx of ascending aortic aneurysm -continue to monitor 5. Dizziness -negative tilt table -mildly orthostatic -maintain hydration 6. hx of B12 def -vitamin B12 IM daily 7. hx of anxiety disorder -laxapro 5 mg po daily 8. hx of sleep disorder -trazodone daily 9. hx of CVA -continue to monitor 10. hx of BPH -flomax .4 mg po daily 11. Hx of HTN -continue to monitor -may need to start medication 12. GI/DVT ppx -protonix 40 daily -SCDs discussed with Dr. Ochoa
--- NOTE | 2018-03-14 17:17 | CARD ---
APPROVED REPORT Date of service: 03/11/2018 EKG Measurement Heart [id number] <Conclusion> Sinus rhythm with premature atrial complexes possible Inferior infarct, age undetermined Abnormal ECG
--- NOTE | 2018-03-14 22:04 | CP.PCM.PN ---
Subjective - Date & Time of Evaluation Date of Evaluation: 03/14/18 Time of Evaluation: 18:00 - Subjective Subjective: Feeling better Objective - Vital Signs/Intake and Output Vital Signs (last 24 hours): Temp Pulse Resp BP Pulse Ox 99.0 F 85 20 132/71 96 03/14/18 16:08 03/14/18 16:08 03/14/18 16:08 03/14/18 16:08 03/14/18 16:08 Intake and Output: 03/14/18 03/15/18 18:59 06:59 Intake Total 500 Output Total 600 Balance -100 - Medications Medications: Current Medications Cyanocobalamin (Vitamin B12 1000 Mcg/Ml Inj) 1,000 mcg IM DAILY [facility] Last Admin: 03/14/18 10:18 Dose: 1,000 mcg Dextrose (Dextrose 50% Inj) 0 ml IV STAT PRN; Protocol PRN Reason: Hypoglycemia Protocol Dextrose (Glutose 15) 0 gm PO ONCE PRN; Protocol PRN Reason: Hypoglycemia Protocol Escitalopram Oxalate (Lexapro) 5 mg PO DAILY [facility] Last Admin: 03/14/18 13:39 Dose: 5 mg Glipizide (Glucotrol) 10 mg PO ACBD [facility] Last Admin: 03/14/18 17:24 Dose: 10 mg Glucagon (Glucagen Diagnostic Kit) 0 mg IM STAT PRN; Protocol PRN Reason: Hypoglycemia Protocol Dextrose (Dextrose 5% In Water 1000 Ml) 1,000 mls @ 0 mls/hr IV .Q0M PRN; Protocol PRN Reason: Hypoglycemia Protocol Insulin Aspart (Novolog) 0 unit SC [facility]; Protocol Last Admin: 03/14/18 21:03 Dose: Not Given Metformin HCl (Glucophage) 850 mg PO BIDCC [facility] Last Admin: 03/14/18 17:24 Dose: 850 mg Multivitamins/Minerals (Therapeutic-M Tab) 1 tab PO 0800 [facility] Last Admin: 03/14/18 08:16 Dose: 1 tab Pantoprazole Sodium (Protonix Ec Tab) 40 mg PO Q12H [facility] Saccharomyces Boulardii (Florastor) 250 mg PO BID [facility] Last Admin: 03/14/18 17:24 Dose: 250 mg Tamsulosin HCl (Flomax) 0.4 mg PO DAILY [facility] Last Admin: 03/14/18 10:17 Dose: 0.4 mg Trazodone HCl (Desyrel) 50 mg PO HS PRN PRN Reason: Insomnia - Labs Labs: 03/14/18 05:56 03/14/18 05:56 PT 10.7 SECONDS (9.7-12.2) 03/11/18 19:13 INR 1.0 03/11/18 19:13 APTT 44 SECONDS (21-34) H 03/11/18 19:13 - Head Exam Head Exam: ATRAUMATIC - Eye Exam Eye Exam: Normal appearance - ENT Exam ENT Exam: Mucous Membranes Dry - Respiratory Exam Respiratory Exam: NORMAL BREATHING PATTERN - Cardiovascular Exam Cardiovascular Exam: +S1, +S2 - GI/Abdominal Exam GI & Abdominal Exam: Normal Bowel Sounds Assessment and Plan (1) Anemia Assessment & Plan: work up consistent with hypoproliferative erythroid response low B12 - on IM supplementation Status: Acute
--- NOTE | 2018-03-15 01:32 | PN ---
DATE: 03/14/2018 ENDOCRINOLOGY FOLLOWUP NOTE LOCATION: Room 364. SUBJECTIVE: This is a 67-year-old male with recent bouts of symptomatic hypoglycemia with altered mental status, and has since then improved clinically and metabolically as noted thereof. His glycemic level are fluctuating but improved, and the glucose values have ranged from 181 to 221 mg/dL. LABORATORY DATA: His hemoglobin A1c is 8.5%. His chemistry showed a BUN of 18, sodium 137, potassium 4.1, chloride 101, CO2 of 27, glucose 156, and creatinine 1. So at this time, we will modify once again his oral hypoglycemic therapy and increase metformin to 850 mg b.i.d. to start today as ordered. We will continue the glipizide given as 10 mg b.i.d. before meals as ordered. We will continue the low-dose correction scale using Novolog insulin as given. We will obtain serial chemistries and supplement accordingly as needed. We will follow. Birdie Quiñones MD
[2018-03-15 07:54] VITALS: BP 138/77; PULSE 86; TEMP 97.6; O2SAT 98
[2018-03-15] MEDS: (Novolog) Insulin Aspart, Recombinant 100 u/ml 10 ml vial SC SCH ×2 (08:09→12:14)
[2018-03-15 08:21] LABS: BASO % 0.6 % (0.0-2.0); EOS # 0.1 K/uL (0.0-0.7); EOS % 1.4 % (0.0-4.0); HEMOGLOBIN 11.9 g/dL (12.0-18.0); LYMPH # 1.8 K/uL (1.0-4.3); LYMPH % 27.2 % (20.0-40.0); MEAN CELL VOLUME 88.4 fL (80.0-94.0); MEAN CORPUSCULAR HEMOGLOBIN 30.7 pg (27.0-31.0); MEAN CORPUSCULAR HGB CONC 34.8 g/dL (33.0-37.0); MEAN PLATELET VOLUME 7.7 fL (7.2-11.7); MONO # 0.6 K/uL (0.0-0.8); MONO % 8.8 % (0.0-10.0); NEUT # 4.2 K/uL (1.8-7.0); RBC 3.86 Mil/uL (4.40-5.90); RED CELL DISTRIBUTION WIDTH 14.1 % (11.5-14.5); WHITE BLOOD COUNT 6.8 K/uL (4.8-10.8)
[2018-03-15 08:45] LABS: ALB/GLOB RATIO 1.3 (1.0-2.1); ALBUMIN 4.1 g/dL (3.5-5.0); ALT/SGPT 56 U/L (21-72); AST/SGOT 40 U/L (17-59); BLOOD UREA NITROGEN 22 mg/dL (9-20); CALCIUM 9.3 mg/dl (8.6-10.4); GFR NON-AFRICAN AMERICAN > 60
--- NOTE | 2018-03-15 09:03 | CP.PCM.PN ---
Subjective - Date & Time of Evaluation Date of Evaluation: 03/15/18 Time of Evaluation: 09:00 - Subjective Subjective: Progress note. Attending: Dr. Xie Pt seen and examined at bedside. No acute distress. No events overnight. Pt ready to go home. No fevers, chills, vomiting, diarrhea. Objective - Vital Signs/Intake and Output Vital Signs (last 24 hours): Temp Pulse Resp BP Pulse Ox 97.6 F 86 20 138/77 98 03/15/18 07:54 03/15/18 07:54 03/15/18 07:54 03/15/18 07:54 03/15/18 07:54 Intake and Output: 03/15/18 03/15/18 06:59 18:59 Intake Total 120 Output Total 450 Balance -330 - Medications Medications: Current Medications Cyanocobalamin (Vitamin B12 1000 Mcg/Ml Inj) 1,000 mcg IM DAILY [facility] Last Admin: 03/14/18 10:18 Dose: 1,000 mcg Dextrose (Dextrose 50% Inj) 0 ml IV STAT PRN; Protocol PRN Reason: Hypoglycemia Protocol Dextrose (Glutose 15) 0 gm PO ONCE PRN; Protocol PRN Reason: Hypoglycemia Protocol Escitalopram Oxalate (Lexapro) 5 mg PO DAILY [facility] Last Admin: 03/14/18 13:39 Dose: 5 mg Glipizide (Glucotrol) 10 mg PO ACBD [facility] Last Admin: 03/14/18 17:24 Dose: 10 mg Glucagon (Glucagen Diagnostic Kit) 0 mg IM STAT PRN; Protocol PRN Reason: Hypoglycemia Protocol Dextrose (Dextrose 5% In Water 1000 Ml) 1,000 mls @ 0 mls/hr IV .Q0M PRN; Protocol PRN Reason: Hypoglycemia Protocol Insulin Aspart (Novolog) 0 unit SC [facility]; Protocol Last Admin: 03/15/18 08:09 Dose: Not Given Metformin HCl (Glucophage) 850 mg PO BIDCC [facility] Multivitamins/Minerals (Therapeutic-M Tab) 1 tab PO 0800 [facility] Last Admin: 03/14/18 08:16 Dose: 1 tab Pantoprazole Sodium (Protonix Ec Tab) 40 mg PO Q12H [facility] Saccharomyces Boulardii (Florastor) 250 mg PO BID [facility] Last Admin: 03/14/18 17:24 Dose: 250 mg Tamsulosin HCl (Flomax) 0.4 mg PO DAILY [facility] Last Admin: 10/29/18 10:17 Dose: 0.4 mg Trazodone HCl (Desyrel) 50 mg PO HS PRN PRN Reason: Insomnia - Labs Labs: 03/15/18 08:08 03/15/18 08:08 PT 10.7 SECONDS (9.7-12.2) 03/11/18 19:13 INR 1.0 03/11/18 19:13 APTT 44 SECONDS (21-34) H 03/11/18 19:13 - Constitutional Appears: Non-toxic, No Acute Distress - Head Exam Head Exam: ATRAUMATIC, NORMAL INSPECTION, NORMOCEPHALIC - Eye Exam Eye Exam: EOMI - Neck Exam Neck Exam: Full ROM, Normal Inspection - Respiratory Exam Respiratory Exam: NORMAL BREATHING PATTERN. absent: Respiratory Distress - Cardiovascular Exam Cardiovascular Exam: +S1, +S2 - GI/Abdominal Exam GI & Abdominal Exam: Soft, Normal Bowel Sounds. absent: Tenderness - Extremities Exam Extremities Exam: Full ROM, Normal Inspection - Neurological Exam Neurological Exam: Alert, Awake, CN II-XII Intact - Psychiatric Exam Psychiatric exam: Normal Affect, Normal Mood - Skin Skin Exam: Dry, Intact, Normal Color, Warm Assessment and Plan - Assessment and Plan (Free Text) Assessment: This is a 67 yo male with 1. Altered mental status -pt was initially hypothermic and hypoglycemic -resolved. -endocrine consult. Dr. Quiñones. recs appreciated. -psych consult. Dr. Mitchell. recs appreciated. -head ct negative -MRI - no acute intracranial abnormality -prior EEG negative -PT/OT -urine culture negative -blood culture x 1 negative -blood culture x 1 gram positive cocci -ID consult. recs appreciated. Dr. Merida -antibiotics may be discontinued 2. Acute drop in HGB -GI consult. Dr. Briones. recs appreciated. -GI notes anemia was likely error and wants to evaluate as outpatient -stool occult blood negative -retic count 2.0 3. hx of DM -ISS -hypoglycemia protocol -glipizide 10 PO ACBD -metformin 500>>> 850 bid -endocrine consult as above. recs appreciated. -HGB a1C 8.5 4. hx of ascending aortic aneurysm -continue to monitor 5. Dizziness -negative tilt table -mildly orthostatic -maintain hydration 6. hx of B12 def -vitamin B12 IM daily -check vitamin B12 -may be able to switch to weekly 7. hx of anxiety disorder -lexapro 5 mg po daily 8. hx of sleep disorder -trazodone daily 9. hx of CVA -continue to monitor 10. hx of BPH -flomax .4 mg po daily 11. Hx of HTN -continue to monitor -may need to start medication 12. GI/DVT ppx -protonix 40 daily -SCDs DISPO: likely discharge today with home PT discussed with Dr. Xie
[2018-03-15] MEDS: Multivitamin With Minerals Tab PO SCH (09:30)
[2018-03-15] MEDS: Saccharomyces Boulardi 250 mg Cap PO SCH (09:30)
--- NOTE | 2018-03-15 23:03 | PN ---
DATE: 03/15/2018 ENDO FOLLOWUP NOTE LOCATION: Room 364. SUBJECTIVE: This is a 67-year-old male with known history of type 2 diabetes, hypertension, now being followed closely for metabolic management. His glycemic levels are fluctuating, but improved and the glucose values overnight have ranged from 189 to 238 and 179 mg/dL. His chemistries show a BUN of 22, sodium 137, potassium 4.5, chloride 98, CO2 28, glucose 210, and creatinine 0.9. So at this time, we will modify his metformin to a higher dose of 850 mg b.i.d. with meals, to start today as ordered. We will continue the glipizide given as 10 mg b.i.d. before meals as ordered. We will obtain serial chemistries and supplement accordingly as needed. We will follow. Birdie Quiñones MD
--- NOTE | 2018-03-17 19:49 | CP.PCM.PN ---
Subjective - Date & Time of Evaluation Date of Evaluation: 03/15/18 Time of Evaluation: 10:00 - Subjective Subjective: Feeling better. Objective - Vital Signs/Intake and Output Vital Signs (last 24 hours): Temp Pulse Resp BP Pulse Ox 97.6 F 86 20 138/77 98 03/15/18 07:54 03/15/18 07:54 03/15/18 07:54 03/15/18 07:54 03/15/18 07:54 - Labs Labs: 03/15/18 08:08 03/15/18 08:08 PT 10.7 SECONDS (9.7-12.2) 03/11/18 19:13 INR 1.0 03/11/18 19:13 APTT 44 SECONDS (21-34) H 03/11/18 19:13 - Head Exam Head Exam: ATRAUMATIC - Eye Exam Eye Exam: Normal appearance - ENT Exam ENT Exam: Mucous Membranes Dry - Respiratory Exam Respiratory Exam: NORMAL BREATHING PATTERN - Cardiovascular Exam Cardiovascular Exam: +S1, +S2 - GI/Abdominal Exam GI & Abdominal Exam: Normal Bowel Sounds Assessment and Plan (1) Anemia Assessment & Plan: work up consistent with hypoproliferative erythroid response low B12 - on IM supplementation Status: Acute
--- NOTE | 2018-03-23 07:21 | DS ---
The patient chief complaint weakness, tired, fall. Patient has uncontrolled diabetes. Patient is on bedrest, supportive care. Tilt table test, postural hypertension. Advised he has . diabetes. Patient discharged, follow up outpatient. Jesús Xie MD
[2030-03-14] MEDS ORDERED: Pantoprazole 40 mg EC Tab PO SCH (06:00)
== END 2018-03-15 14:36 | disposition home or self-care (01) | DRG 639 ==
LOC: C.ER 10:29 → C.9I 12:58 → C.3T 03-14 06:23
PROVIDERS: ADMIT Internal Medicine Pulmonary Disease; ATTEND Internal Medicine Pulmonary Disease
DX: E10.649 Type 1 diabetes mellitus with hypoglycemia without coma (principal); E10.51 Type 1 diabetes mellitus with diabetic peripheral angiopathy without gangrene; E10.319 Type 1 diabetes mellitus with unspecified diabetic retinopathy without macular edema; E10.42 Type 1 diabetes mellitus with diabetic polyneuropathy; T38.3X5A Adverse effect of insulin and oral hypoglycemic [antidiabetic] drugs, initial encounter; I10 Essential (primary) hypertension; D64.9 Anemia, unspecified; I25.10 Atherosclerotic heart disease of native coronary artery without angina pectoris; I27.20 Pulmonary hypertension, unspecified; J44.9 Chronic obstructive pulmonary disease, unspecified; E78.00 Pure hypercholesterolemia, unspecified; E66.9 Obesity, unspecified; E78.5 Hyperlipidemia, unspecified; F32.9 Major depressive disorder, single episode, unspecified; G47.00 Insomnia, unspecified; K52.9 Noninfective gastroenteritis and colitis, unspecified; N28.9 Disorder of kidney and ureter, unspecified; N40.0 Benign prostatic hyperplasia without lower urinary tract symptoms; R29.6 Repeated falls; T38.0X5A Adverse effect of glucocorticoids and synthetic analogues, initial encounter; Z79.4 Long term (current) use of insulin; Z79.899 Other long term (current) drug therapy; Z86.73 Personal history of transient ischemic attack (TIA), and cerebral infarction without residual deficits; Z87.891 Personal history of nicotine dependence; Z90.49 Acquired absence of other specified parts of digestive tract; Z91.19 Patient's noncompliance with other medical treatment and regimen